=== PATIENT | female | born 1980 | race Caucasian/White ===

== ENCOUNTER → 2018-07-30 09:31 | Outpatient (CLI) | payer BC, SELFPAY ==
[2018-07-30 09:44] LABS: Basophils # 0.1 K/mm3 (0-0.2); Basophils % 2.3 % (0.1-2.0); Eosinophils # 0.2 K/mm3 (0.0-0.4); Hematocrit 40.4 % (37.0-47.0); Hemoglobin 13.6 g/dL (12.2-16.2); Lymphocytes # 1.6 K/mm3 (0.7-4.5); Lymphocytes % 39.2 % (10-50); Mean Corpuscular HGB Conc 33.6 g/dL (31.8-35.4); Mean Corpuscular Hemoglobin 31.8 pg (27.0-31.2); Mean Corpuscular Volume 94.6 fl (81-99); Mean Platelet Volume 8.5 fl (7.4-10.4); Monocytes # 0.3 K/mm3 (0.1-1.0); Monocytes % 7.9 % (1.7-9.3); Neutrophils # 1.9 K/mm3 (1.8-7.8); Neutrophils % 46.6 % (37.0-80.0); Platelet Count 272 K/mm3 (142-424); Red Blood Count 4.27 M/mm3 (4.20-5.40); Red Cell Distribution Width 11.9 % (11.5-17.5)
[2018-07-30 09:57] LABS: Hemoglobin A1C 5.5 % (0.0-7.0)
[2018-07-30 12:13] LABS: Alanine Aminotransferase 24 U/L (12-78); Albumin Level 3.6 gm/dL (3.4-5.0); Albumin/Globulin Ratio 1.1 (1.1-1.8); Alkaline Phosphatase 68 U/L (46-116); Anion Gap 14.5 mEq/L (5-15); Aspartate Amino Transferase 16 U/L (15-37); Bilirubin,Total 0.9 mg/dL (0.2-1.0); Blood Urea Nitrogen 13 mg/dL (7-18); Calcium 9.3 mg/dL (8.5-10.1); Carbon Dioxide 28 mmol/L (21.0-32.0); Chloride 105 mmol/L (98-107); Creatinine,Serum 0.51 mg/dL (0.55-1.02); Estimated Glomerular Filt Rate 136 ml/min (>60); Free Thyroxine Index 3.1 ug/dL (5.93-13.13); GFR (African American) 164 ML/MIN (>60); Globulin 3.2 gm/dl (1.3-3.2); Glucose 81 mg/dL (74-106); Potassium 4.5 mmoL/L (3.5-5.1); Sodium 143 mmol/L (136-145); T4 (Thyroxine) 10.6 ug/dl (4.7-13.3); Thyroid Stimulating Hormone 1.76 uIU/ml (0.358-3.740); Total Protein,Serum 6.8 gm/dL (6.4-8.2); Triiodothryronine (T3) Uptake 29 % (31-39)
[2018-08-02 13:11] LABS: Vitamin B12 619 pg/mL (232-1245)
== END ==
PROVIDERS: Visit Provider Internal Medicine Adolescent Medicine
DX: R73.9 Hyperglycemia, unspecified (principal); R53.81 Other malaise
CPT/HCPCS: 36415; 80053; 82607; 83036; 83735; 84436; 84443; 84479; 85025

== ENCOUNTER 2021-05-29 08:59 | Emergency (ER) | payer BC, SELFPAY ==
[2021-05-29 09:25] VITALS: BP 122/65; PULSE 116; RESP 18; TEMP 37.3; O2SAT 98; BMI 22.6
--- NOTE | 2021-05-29 09:41 | HMH.EDUTC ---
[facility] Disposition Clinical Impression: Close exposure to COVID-19 virus Pharyngitis Qualifiers: Pharyngitis/tonsillitis etiology: other specified organisms Qualified Code(s): J02.8 - Acute pharyngitis due to other specified organisms Disposition: Home, Self-Care Condition on Discharge: Good Instructions: DI for Strep Throat, Strep Throat Additional Instructions: Drink plenty of fluids. Take tylenol or ibuprofen for pain or fever. Take the medications as directed. Follow up with your regular doctor. GO TO THE ER FOR ANY WORSENING SYMPTOMS Quarantine until you know the results of your covid-19 test. Notify your school or workplace of your results and follow their instructions regarding return to work/school. Prescriptions: Brompheniramine/Pseudoephed/Dm [Bromfed Dm Cough Syrup] 5 ml PO Q6HP PRN #240 ml PRN Reason: Cough Transmission Status: Pending to [facility] Amoxicillin [Amoxicillin 500mg Tab] 500 mg PO TID 10 Days #30 tab Transmission Status: Pending to [facility] predniSONE [Deltasone 10mg tablet] 10 mg PO BID 3 Days #6 tab Transmission Status: Pending to [facility] Referrals: Lester Plaza MD [Primary Care Provider] - Forms: Work/School Release Time of Disposition: 10:02 Medical Decision Making - Medical Records Medical records reviewed: No: I reviewed the patient's medical records. - Garrick Inquiry Pt receiving controlled substance: No Vital Signs: 05/29/21 09:25 Temperature 99.1 F Temperature Source Oral Pulse Rate [Left] 116 H Respiratory Rate 18 Blood Pressure [Right Arm] 122/65 Blood Pressure Mean [Right Arm] 84 02 Sat by Pulse Oximetry 98 - Lab Data Lab results reviewed: Yes: I reviewed the patient's lab results. Lab Results 05/29/21 09:20: Group A Strep Rapid Negative Orders (Tests/Meds): ORDERS Category Date Time Status Strep Screen Confirmation Stat Micro 05/29/21 09:20 Received [facility] HPI - General Stated complaint: sore throat,fever Time Seen by Provider: 05/29/21 09:41 Mode of Arrival: Ambulatory Source of Information: Patient Limitations: No Limitations Description of Symptoms (Recalled from Triage Doc. by RN): pt c/o a sore throat since this am. HEENT Symptoms (Recalled from RN notes): Yes (sore throat) Resp Symptoms (Recalled from RN notes): No Skin Symptoms (Recalled from RN notes): No MS Symptoms (Recalled from RN notes): No Functional Status (Recalled from RN notes): wnl - History of Present Illness Provider Complaint: She states that she has been having sore throat for the past 2 days. She gets strep at times and she feels like she has strep throat. She has been fully vaccinated against covid-19. - Related Data Previous Rx's Medication Instructions Recorded norgestimate 0.25 mg-ethinyl 1 tab PO ONCE #84 tab 10/04/20 estradiol 35 mcg tablet Amoxicillin [Amoxicillin 500mg Tab] 500 mg PO TID 10 Days #30 tab 05/29/21 Brompheniramine/Pseudoephed/Dm 5 ml PO Q6HP PRN #240 ml 05/29/21 [Bromfed Dm Cough Syrup] predniSONE [Deltasone 10mg tablet] 10 mg PO BID 3 Days #6 tab 05/29/21 Allergies Allergy/AdvReac Type Severity Reaction Status Date / Time No Known Allergies Allergy Verified 10/04/20 09:04 - Worker's Comp Is this a Worker's Comp case?: No [facility] History - Hepatitis A Screen Drug use history?: No High risk sexual behaviors?: No History of sexually transmitted infection?: No Currently employed?: No Childcare worker?: No Do you have indoor plumbing?: Yes Do you have electricity?: Yes Attestation statement:: This patient has been screened for Hepatitis A risk factors. I have reviewed the patient's past medical history: Yes Medical History: Reports:: Urinary Tract Infection Denies:: Anxiety, Asthma, Depression, Migraine, MRSA, Seizures Other Surgeries: Yes: No Previous Surgery Amputation: No Fractures: No - Social History Smoking Status: Never smoker Alcoh
[2021-05-29 09:46] LABS: Strep Scrn Group A (Rapid) Negative (Negative)
[2021-05-29 10:10] VITALS: BP 122/65; PULSE 116; RESP 18; TEMP 37.3
== END 2021-05-29 10:10 | disposition home or self-care (01) ==
PROVIDERS: Emergency Provider Nurse Practitioner Family; PCP Internal Medicine Adolescent Medicine
DX: U07.1 COVID-19 (principal); J02.8 Acute pharyngitis due to other specified organisms
CPT/HCPCS: 87430; 99203; C9803; G0463; U0003; U0005

== ENCOUNTER → 2021-10-14 15:47 | Outpatient (CLI) | payer BC, SELFPAY ==
--- NOTE | 2021-10-14 15:48 | MM_ITS ---
PROCEDURE INFORMATION: Exam: Bilateral Screening 3D Mammography Exam date and time: 10/14/2021 3:48 PM Age: 41 years old Clinical indication: Screening mammogram. TECHNIQUE: Imaging protocol: Bilateral Screening tomosynthesis and 2D mammography including computer-aided detection (CAD) when performed. COMPARISON: No relevant prior studies available. FINDINGS: MAMMOGRAPHY: Breast composition: The breast is heterogeneously dense, which may obscure small masses. Mass: None. Architectural distortion: No new or suspicious architectural distortion. Calcifications: No new or suspicious calcifications are present Asymmetric density: No new or suspicious asymmetric density is present Skin thickening: None. Axillary adenopathy: None. IMPRESSION: No mammographic evidence of malignancy. Recommend annual screening mammography unless otherwise clinically indicated. ASSESSMENT: BI-RADS category 1: Negative
== END ==
PROVIDERS: PCP Internal Medicine Adolescent Medicine; Visit Provider Obstetrics & Gynecology
DX: Z12.31 Encounter for screening mammogram for malignant neoplasm of breast (principal)
CPT/HCPCS: 77063; 77067

== ENCOUNTER 2023-11-22 13:15 | Outpatient (CLI) | payer BC, SELFPAY ==
--- NOTE | 2023-11-22 13:15 | MM_ITS ---
PROCEDURE INFORMATION: Exam: MG Bilateral Screening 3D Mammography Exam date and time: 11/22/2023 1:54 PM Age: 43 years old Clinical indication: Screening. No family history of breast cancer. TECHNIQUE: Imaging protocol: Bilateral Screening tomosynthesis and 2D mammography including computer-aided detection (CAD) when performed. COMPARISON: MG MM DIG SCREENING MAMM BI W/CAD 10/14/2021 3:48 PM FINDINGS: MAMMOGRAPHY: Breast composition: The breasts are heterogeneously dense, which may obscure small masses. Mass: None. Architectural distortion: None. Calcifications: No suspicious calcifications. Asymmetric density: None. Skin thickening: None. Axillary adenopathy: None. IMPRESSION: No mammographic evidence of malignancy. Annual screening is recommended unless otherwise clinically indicated. ASSESSMENT: BI-RADS Category 1: Negative
--- NOTE | 2023-11-22 13:15 | US_ITS ---
PROCEDURE: US TRANSVAGINAL CLINICAL INDICATION: Pelvic Pain, pain in ovaries, AUB COMPARISON: No exams were available for comparison FINDINGS: Transvaginal sonographic images of the pelvis were obtained. UTERUS: 10.2cm x 11.1cmx 7.0cm anteverted with a combined endometrial thickness of 7.5mm. There are least 3 fibroids within the uterus. There is a large posterior fibroid measuring 8.5 cm x 9.6 cm x 10.4 cm. There is a 2nd fibroid measuring 5.5 cm x 4.4 cm x 4.5 cm A 3rd anterior fibroid measures 1.3 cm x 1.5 cm x 0.9 cm. LEFT OVARY: 1.4cmx1.5cmx2.5cm with a volume of 2.6ml. There is a follicle measuring 1.0 cm x 1.0 cm x 1.9 cm. RIGHT OVARY: 3.8 cmx 3.0cmx2.1cm with a volume of 12.3ml. There is a follicle in the right ovary measuring 2.6 cm x 2.4 cm x 2.3 cm. A 2nd follicle measures 2.9 cm x 1.9 cm x 3.0 cm Both ovaries are seen and appear normal. Doppler flow to both ovaries are seen. There is no fluid in the cul-de-sac. IMPRESSION: 1. Anteverted, enlarged uterus. The endometrium is normal measuring 7.5 mm. 2. There are 3 fibroids within the uterus. The largest measures 10.4 cm. A second fibroid measures 5.5 cm and the 3rd fibroid is 1.5 cm. 3. Both ovaries are seen and appear normal. 4. There are 2 follicles on the right ovary measuring 2.6 cm and 3.0 cm. 5. The left ovary has a single follicle measuring 1.9 cm. 6. There is no fluid in the cul-de-sac. Dictated by: Chester Bueno MD 11/22/2023 17:34 Chester Bueno MD in OV 11/22/2023 17:34
--- NOTE | 2023-11-22 13:23 | HMH.ITSTN ---
PATIENT ARRIVED 45 MIN EARLY FOR EXAM . FINISHED MY 1:00 PATIENT AT 1:22 AND EXPLAINDED TO HER THAT I HAD A 1:30 ON SCHEDULE BUT IF SHE DIDN'T SHOW UP , I COULD GET HER ON IN
== END 2023-11-22 23:59 | disposition home or self-care (01) ==
LOC: RAD 13:15
PROVIDERS: PCP Internal Medicine Adolescent Medicine; Visit Provider Obstetrics & Gynecology
DX: R10.2 Pelvic and perineal pain (principal); N93.9 Abnormal uterine and vaginal bleeding, unspecified; Z12.31 Encounter for screening mammogram for malignant neoplasm of breast
CPT/HCPCS: 76830; 77063; 77067

== ENCOUNTER 2024-02-16 15:51 | Outpatient (CLI) | payer BC, SELFPAY ==
--- NOTE | 2024-02-16 15:51 | US_ITS ---
PROCEDURE: US TRANSVAGINAL CLINICAL INDICATION: pelvic pain COMPARISON: US US TRANSVAGINAL from 11/22/2023 FINDINGS: Transvaginal sonographic images of the pelvis were obtained. UTERUS: 12.4cm x 10.9 cmx 9.5 cm Antivert with a combined endometrial thickness of 8.4mm. There is a small amount of fluid within the endometrium. Fibroid 1. 9.2 cm x 10.3 cm x 10.0 cm Fibroid 2. 3.9 cm x 4.8 cm x 3.9 cm Fibroid 3. 1.4 cm x 1.2 cm x 1.5 cm LEFT OVARY: xx with a volume of . RIGHT OVARY: 3.6 cmx 2.1cmx1.9 cm with a volume of 7.5ml. There is a follicle measuring 2.6 cm x 2.0 cm x 2.5 cm. Right ovary is seen and appears normal. Left ovary is not visualized. Doppler flow to right ovary is seen. There is no fluid in the cul-de-sac. IMPRESSION: 1. Anteverted enlarged uterus. It is enlarged with at least 3 separate fibroids. There is a large posterior fibroid that measures 10.3 cm. It has a similar appearance from her ultrasound done November 22, 2023. There are 2 other fibroids measuring 4.8 cm and 1.5 cm. 2. The endometrium appears normal and there is a small amount of fluid within the endometrium. 3. The left ovary is not visualized today. The right ovary appears normal in contains a follicle measuring 2.6 cm. 4. No fluid in the cul-de-sac. Dictated by: Cehster Bueno MD 02/16/2024 16:52 Chester Bueno MD in OV 02/16/2024 16:52
== END 2024-02-16 23:59 | disposition home or self-care (01) ==
PROVIDERS: PCP Internal Medicine Adolescent Medicine; Visit Provider Obstetrics & Gynecology
DX: R10.2 Pelvic and perineal pain (principal)
CPT/HCPCS: 76830

== ENCOUNTER 2024-04-01 07:58 | Outpatient (CLI) | payer BC, SELFPAY ==
[2024-04-01 08:29] LABS: Basophils # 0.2 K/mm3 (0-0.2); Basophils % 2.7 % (0.1-2.0); Eosinophils # 0.3 K/mm3 (0.0-0.4); Eosinophils % 5.2 % (0.1-12.0); Hematocrit 46.1 % (37.0-47.0); Hemoglobin 15.2 g/dL (12.2-16.2); Lymphocytes # 1.7 K/mm3 (0.7-4.5); Lymphocytes % 28.7 % (10-50); Mean Corpuscular Hemoglobin 31.3 pg (27.0-31.2); Mean Platelet Volume 8.1 fl (7.4-10.4); Monocytes # 0.4 K/mm3 (0.1-1.0); Monocytes % 6.8 % (1.7-9.3); Neutrophils # 3.3 K/mm3 (1.8-7.8); Neutrophils % 56.6 % (37.0-80.0); Platelet Count 367 K/mm3 (142-424); Red Blood Count 4.85 M/mm3 (4.20-5.40); Red Cell Distribution Width 12.5 % (11.5-17.5); White Blood Count 5.9 K/mm3 (4.8-10.8)
[2024-04-01 08:35] LABS: Alanine Aminotransferase 19 U/L (12-78); Albumin Level 4.2 g/dl (3.5-5.0); Albumin/Globulin Ratio 1.7 (1.1-1.8); Alkaline Phosphatase 116 U/L (38-126); Anion Gap 10.4 mEq/L (5-15); Aspartate Amino Transferase 27 U/L (14-36); Bilirubin,Total 0.7 mg/dl (0.2-1.3); Blood Urea Nitrogen 13 mg/dl (7-17); Calcium 9.3 mg/dl (8.4-10.2); Carbon Dioxide 26 mmol/L (22.0-30.0); Chloride 109 mmol/L (98-107); Estimated Glomerular Filt Rate 135 ml/min (>60); GFR (African American) 163 ML/MIN (>60); Globulin 2.5 g/dL (1.3-3.2); Glucose 86 mg/dl (74-100); Potassium 4.4 mmoL/L (3.5-5.1); Sodium 141 mmol/L (136-145); Total Protein,Serum 6.7 g/dl (6.3-8.2)
[2024-04-01 09:04] LABS: HCG,Quantitative < 2 mIU/ml (0-5.42)
== END 2024-04-01 23:59 | disposition home or self-care (01) ==
PROVIDERS: PCP Internal Medicine Adolescent Medicine; Visit Provider Obstetrics & Gynecology
DX: D25.9 Leiomyoma of uterus, unspecified (principal); Z34.90 Encounter for supervision of normal pregnancy, unspecified, unspecified trimester
CPT/HCPCS: 36415; 80053; 84702; 85025; 86850

== ENCOUNTER 2024-04-04 10:37 | Inpatient (IN) | payer BC, SELFPAY ==
[2024-04-04] VITALS (20 sets, daily range): BP systolic 98–137; BP diastolic 59–91; PULSE 75–102; RESP 14–18; TEMP 35.9–43; O2SAT 94–100; BMI 25.0
[2024-04-04] MEDS: ACETAMINOPHEN 500MG TAB 1000 MG PO ×3 (09:48→19:58)
[2024-04-04] MEDS: LACTATED RINGERS 1000ML 1,000 ML 25 ML IV (09:48)
[2024-04-04] MEDS: CELECOXIB 100MG CAPSULE 400 MG PO (09:49)
[2024-04-04] MEDS: GABAPENTIN 600MG TABLET 600 MG PO (09:50)
--- NOTE | 2024-04-04 10:10 | EXP.ANES.CKL ---
[facility] Disclaimer: The information contained in this section may have been updated after the patient was seen, as this information can be updated by other users. Medical History History of COVID-19 Abnormal uterine bleeding (AUB) Surgical History No history of previous surgery Family History Other Cancer Social History Smoking Status: Never smoker alcohol intake: never substance use type: denies use current occupational status: employed household members: family housing: house [facility] Anesthesia Checklist Patient Identification Patient Identification: Arm Band Structural Data Admitted From: Home Planned Operative Procedure/s: Total Abdominal Hysterectomy, Bilateral Salpingectomy Consent for Planned Operative Procedure(s) Verified: Yes Verified Documents: Surgical Consent and History and Physical NPO Status Verified Time NPO: 00:00 Additional verifications Anesthesia Reactions: No Hx Blood Transfusions: No Blood Transfusion Reaction: No Airway Assessment Mallampati Score:: Class I C-Spine Mobility Assessed: Yes TMJ Mobility Assessed: Yes Dentition: Good Dentition Neurological Assessment Level of Consciousness: Awake, Alert and Appropriate Anesthesia Plan Anesthesia Risk discussed: Yes Anesthesia Plan: Verified ASA Class: I Anesthesia Type: General w/block (with Bilateral TAP Block)
[2024-04-04] MEDS: METRONIDAZ/SOD CHL 500 MG/100 ML PIGGYBACK 100 MG IV (10:36)
[2024-04-04] MEDS: CEFAZOLIN SODIUM 2 GM in 0.9 % SODIUM CHLORIDE 100 ML IV (10:36)
--- NOTE | 2024-04-04 12:50 | EXP.ANES.I ---
[facility] Anesthesia Record Part I Anesthesia Record I Intake, IV Amount: 1,400 Hydration: Adequate Estimated blood loss (mL): 200 Urine output (mL): 100 Blood Products used (#): none Blood Pressure: 129/91 SaO2: 99 Pulse Rate: 86 Airway Patency: Patent Respiratory Rate: 16 Temperature: 97.5 F Patient is:: Drowsy and Stable Stable to PACU at:: 12:40
[2024-04-04 14:10] LABS: Microscopic,Cath URINE MICROSCOPIC (MICROSCOPIC)
--- NOTE | 2024-04-04 14:31 | P.HP_ITS ---
History of Present Illness *Admission Date: 04/04/24 *Reason for visit:: Hysterectomy *History of present illness: Prerna Schofield is a 44yo presenting today for total abdominal hysterectomy, bilateral salpingectomy, and cystoscopy. -Reports she continues to have abnormal intermenstrual bleeding. She previously adjusted her control but continues to have this irregular heavy menses. She is also complaining of continued crampy and heavy menstrual cycles. Endorses significant dysmenorrhea. She also has abdominal pelvic pain. Endorses pelvic pressure. -Review of transvaginal ultrasound shows interval growth for uterine fibroids -Medical history review: Only medication is Sprintec. She has had 1 vaginal delivery and it was uncomplicated. No known drug allergies. She denies any other surgical history. 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 Denies tobacco, alcohol, illicit drug use [facility] Disclaimer: The information contained in this section may have been updated after the patient was seen, as this information can be updated by other users. Medical History History of COVID-19 Abnormal uterine bleeding (AUB) Surgical History No history of previous surgery Family History Other Cancer Social History (Updated 04/04/24 @ 14:04 by Bill Van RN) Smoking Status: Never smoker alcohol intake: never substance use type: denies use current occupational status: employed Travel in the last 8 weeks: None household members: family housing: house Other Medical History Have you received the Flu Vaccine for this season: No Have you received the Pneumonia Vaccine: No Review of Systems Review of Systems Review of systems (narrative): Const: Denies headaches, fever/chills, weakness Eyes: Denies change in vision Cardiorespiratory: Denies chest pain, shortness of breath, and cough GI: Denies abdominal pain, change in BM, nausea, vomiting, constipation, diarrhea : +AUB, dysmenorrhea, pelvic pain, abdominal pain, menorrhagia, pelvic pressure; denies genital lesions, vaginal itching and odor; denies leakage of urine, urinary urgency, frequency, dysuria and hematuria Denies depression and anxiety Denies change in libido Meds Home Medications and Allergies Home Medications ?Medication ?Instructions ?Recorded ?Confirmed ?Type norgestimate 0.25 mg-ethinyl 1 tab PO DAILY 04/04/24 04/04/24 History estradiol 35 mcg tablet (Sprintec (28)) New Prescriptions to Start Prescriptions: Allergies Allergy/AdvReac Type Severity Reaction Status Date / Time No Known Allergies Allergy Verified 03/31/24 13:55 Exam Data for Last 24 hours Vital signs and Labs for Last 24 Hours: Temp Pulse Resp BP Pulse Ox O2 Del Method 97.2 F L 75 14 117/70 99 Room Air 04/04/24 13:20 04/04/24 13:45 04/04/24 13:45 04/04/24 13:45 04/04/24 13:45 04/04/24 13:45 I & O for Last 24 hours: Intake & Output 04/01/24 04/02/24 04/03/24 04/04/24 23:59 23:59 23:59 23:59 Intake Total 1400 / 1400 Balance 1400 / 1400 Weight 160 lb Narrative: Const: healthy appearing, NAD, well developed/nourished HEENT: No oral lesions Resp: Normal respiratory effort, no audible wheezing, symmetirc chest rise Cardio: Regular rate GI: Abdomen soft, non-tender, non-distended. no guarding. Fundus palpable at the umbilicus Skin: No rash or visible lesion Neuro:No focal deficits Extrem: No visible deformity Psych: Normal mood and demeanor Constitutional Constitutional: no acute distress *Routine HEENT Exam Head: Present normocephalic Eye: Present EOMI and PERRL ENT: Present mucous membranes moist *Routine Neck Exam Neck: Present supple; Absent lymphadenopathy *Routine Respiratory Exam Respiratory: Present CTA bilaterally *Routine Cardiovascular Exam Cardiovascular: Present RRR *Routine Abdominal Exam Abdominal: Present soft and normoactive bowel sounds; Absent tenderness *Routine Rectal Exam Rectal:: deferred *Routine Genitalia Exam Genitalia:: deferred *Routine Extremities Exam Extremities: Absent cyanosis, clubbing or edema *Routine Skin Exam Skin: Present warm; Absent rash *Routine Neurological Exam Neurological: Present alert and oriented X3 Assessment and Plan *Assessment and plan (1) Pelvic pain: Status: Acute Category: Medical Code(s): R10.2 - Pelvic and perineal pain (2) Dysmenorrhea: Status: Acute Category: Medical Code(s): N94.6 - Dysmenorrhea, unspecified (3) Fibroid uterus: Status: Acute Category: Medical Code(s): D25.9 - Leiomyoma of uterus, unspecified (4) Pelvic fullness in female: Status: Acute Category: Medical Code(s): R19.00 - Intra-abdominal and pelvic swelling, mass and lump, unspecified site (5) Abnormal uterine bleeding (AUB): Status: Acute Category: Medical Code(s): N93.9 - Abnormal uterine and vaginal bleeding, unspecified Plan Plan for total abdominal hysterectomy, salpingectomy, cystoscopy -TVUS, most recent on 02/16/2024: Uterus: 12.4 x 10.9 x 9.5 cm. The endometrium measures 8.4 mm. -Fibroid #1: 9.2 x 10.3 x 10.0 cm -Fibroid #2: 3.9 x 4.8 x 3.9 cm -Thyroid #3: 1.4 x 1.2 x 1.5 cm Ovaries: Left ovary difficult to visualize. Right ovary within normal limits -The patient is requesting definitive surgical management with hysterectomy. She declines medical intervention. Reviewed the risks of major gynecologic surgery with the pt to include bleeding, infection and risk of damage to surrounding structures. She thoroughly understands the risk of hysterectomy. Teach back method used and patient was able to repeat all discussed risk from last visit. Discussed risks of bleeding and pt consented to blood transfusion if deemed medically necessary. Discussed risks of infection, states she has no allergies to antibiotics and we will use ancef and metronidazole for infection ppx. Discussed risks of injury to the surrounding structures to include her bowel, bladder, ureters, and neurovascular bundles. Discussed that this could require further surgeries and prolong recovery and hospital stay. Discussed this could also mean transfer to a tertiary care center if certain complications occurred. Discussed risk of DVT, anesthesia complications, and . Discussed risk of fistula formation. Discussed that she would stay overnight to ensure adequate pain control and that she met all postop milestones and pt agreed. She voiced understanding of all risks. -Pap smear collected on 11/18/2023: NILM, transformation zone present, positive HPV. -CBC, test, type and screen ordered. -Infection prophylactic antibiotics ordered: Ancef 2g and 500 mg of metronidazole -Will follow ERAS pain management protocol -Postoperative course reviewed with the patient and explained that she should an ticipate staying in the hospital 1-2 days until meeting all DC criteria, and pain is well controlled. Follow-up: -Postoperatively -PRN as problems arise
--- NOTE | 2024-04-04 14:34 | EXP.OP.NOTE ---
Date of procedure: 04/04/24 Pre-op Diagnosis:: 1. Enlarged leiomyomatous uterus 2. Abnormal uterine bleeding 3. Heavy uterine bleeding 4. Dysmenorrhea 5. Pelvic pain and pressure Post-op Diagnosis:: 1. Enlarged leiomyomatous uterus 2. Abnormal uterine bleeding 3. Heavy uterine bleeding 4. Dysmenorrhea 5. Pelvic pain and pressure Procedure performed:: Total abdominal hysterectomy with bilateral Salpingectomy Cystoscopy Surgeon:: Josie Arauz DO Toppiece Chopper(s):: Chester Bueno MD PAINTER TUMBLING BARREL:: Jorge Alamo and Other (Willem Schofield) Anesthesia: GETA Estimated blood loss (mL): 200 Operative findings:: - EUA revealed normal appearing vulva and vagina, a enlarged uterus approximately 20+ weeks in size with irregular contours suggestive of fibroids. - Operative findings demonstrated a fibroid uterus with multiple subserosal and intramural fibroids as well as there were some filmy adnexal adhesions bilaterally. The appendix was normal appearing. The bowel and omentum were normal appearing. Peritoneal surfaces and vesicouterine peritoneum and cul-de-sac were all free of any evidence of endometriosis or adhesions. - Cystoscopy revealed bilateral flow from the ureters without any evidence of bladder injury. Operative note:: After informed consent was obtained and all questions were answered to the patient?s satisfaction in layman?s terms. She was taken to the Operating Room where general anesthesia was obtained without any difficulty. Pt was placed in dorsal supine position. EUA revealed findings above and the decision was made to proceed with MARVEL. The vagina and abdomen were prepped and draped in normal sterile fashion. A midline vertical incision was made from the pubic bone to the umbilicus with a scalpel. This was carried to the fascia with the Bovie and blunt dissection. The fascia was incised in the midline and extended superiorly and inferiorly with Gann scissors. The rectus muscles were taken off the fascial plane carefully. The midline was identified and the peritoneum was easily accessed, and transected. Entry to the abdominal cavity was noted. The patient was placed in a slight Trendelenburg and the uterus was noted to be occupying the entire space filling the pelvis below the umbilicus. The uterus was removed from the abdominal incision and the bowel was packed cephalad with 4 lap sponges. O'Chadd-O'Alas retractor was placed. At this time it was noted there was a small filmy adhesion which was broken down upon entry from the left ovary. There is a small amount of bleeding that was made hemostatic with the Enseal laparoscopic coagulation device. Hemostasis noted. The uterus was very grossly enlarged with several fibroids noted. 2 Jacquie clamps were used to grasp the fallopian tube and round ligament complex at the cornua of the uterus. The Enseal was used to clamp and coagulate the round ligament as well as the utero-ovarian ligament. Enseal was used to exteriorly down the broad ligament. The broad ligament was into its anterior and posterior leaflets working the way towards the cardinal ligament. The vesicouterine peritoneum was identified, transected, and dissected. The posterior leaflet of the broad ligament was taken down to the cardinal ligaments and the uterine artery was skeletonized. A clamp was placed on the artery and it was coagulated and transected. This process was repeated on the contralateral side. The vesicouterine peritoneum was made in the middle. While skeletonizing the left uterine artery it was transected but bleeding was able to be controlled quickly with a hemostatic clip and suture ligation of the artery. The bladder was easily dissected off the cervicovaginal fascia. Straight clamps proximal to the uterus were placed across the uterine vessels and cardinal ligaments were cut and suture ligated bilaterally with 0-vicryl. Then the bladder was sharply and bluntly dissected off the underlying cervix with a moist Ray-Zaida sponge distal to the level of the cervix. Two sharply curved Oliver clamps were placed just distal to the cervix and Gann scissors were used to transect the remainder of the uterine body and cervix. Specimen passed off and sent to pathology. The Enseal was used to complete the salpingectomy bilaterally. Fallopian tubes were passed off the operative field to be sent to pathology for further evaluation. Bilateral vaginal apices were suture-ligated. The cuff was closed with 0 Vicryl in a running locked fashion. Ovaries and adnexa were reevaluated and noted to be hemostatic. The vaginal cuff was hemostatic. There is a small amount of oozing on the vesicouterine peritoneum/the bladder serosa wall. This was made hemostatic with pressure. Copious irrigation of the pelvis was used and it was suctioned dry. Noted to be hemostatic. Surgicel powder was placed over the cuff, bladder peritoneum, and pedicles for prophylaxis. The sigmoid colon was replaced back into the hollow of the sacrum. All instruments and laps were returned from the abdominal cavity. The O'Chadd-O'Alas was removed. Lap count was correct. The omentum was pulled over the bowel. The peritoneum was reapproximated with 2-0 Monocryl. The rectus muscles were noted to be hemostatic and nicely returned to midline. The fascia was then closed in a running fashion with 0-PDS x 2. No gaps or defects were appreciated. The subcutaneous tissue was irrigated. Any bleeders were made hemostatic with the bovie. The subcutaneous tissue was reapproximated in 2 layers with 0 Monocryl and 2-0 Monocryl. The skin was closed in a subcuticular fashion with 3-0 monocryl. The patient was frog-legged and a cystoscopy was completed. Johnson catheter was removed. Urology cystoscope was placed and the bladder was distended with normal saline. Inspection showed bilateral flow from the ureteral meatus. There was no evidence of injury, suture, deficits or other bladder abnormalities. Cystoscope was removed The patient tolerated the procedure well. The sponge, lap, and needle counts were correct, per nursing. At the end of the case the specimen was weighed and noted to be greater than 2 pounds. Josie Arauz DO Obstetrics and Gynecology. Condition: stable Disposition: floor Specimens:: Uterine body, cervix, bilateral fallopian tubes Complications:: none
[2024-04-04] MEDS: LACTATED RINGERS 1000ML 1,000 ML 125 ML IV (14:44)
[2024-04-04 15:16] LABS: Appearance,Urine/Cath CLEAR (Clear); Bilirubin,Cath Negative (Negative); Blood, Urine/Cath Negative (Negative); Color,Urine/Cath YELLOW (Yellow); Glucose,Urine/Cath (UA) Negative (Negative); Ketones,Urine/Cath Negative (Negative); Leukocyte Esterase,Cath Negative (Negative); Nitrate,Cath Negative (Negative); Protein,Urine/Cath Negative (Negative); Urobilinogen,Cath 0.2 EU/dl (0.2)
[2024-04-04 15:34] LABS: Bacteria,Urine/Cath OCCASSIONAL /lpf; Mucus,Urine/Cath 1+ /lpf; WBC,Urine/Cath Occasional #/hpf (0-3)
[2024-04-04] MEDS: KETOROLAC 30MG/ML VIAL 30 MG IV (18:48)
--- NOTE | 2024-04-04 20:30 | PC.NURSE ---
Pt ambulated to bathroom at this time with standby assist, pt denies dizziness. pt was able to void without difficulty. Pt ambulated back to bed without difficulty, denies needs at this time
--- NOTE | 2024-04-04 22:17 | PC.NURSE ---
Patient stated she wanted to try to get up and walk. This RN assisted patient out of bed and started to ambulated to the door, Pt stated she was getting dizzy, Pt was seated in chair by door, cool rag applied to pts neck, pt stated she would sit in the chair for a bit then get back in bed. RN educated on not getting up without assistance, Pt V/U. Patient denies needs
[2024-04-04] MEDS: SIMETHICONE 80MG CHEWABLE TABLET 160 MG PO (23:37)
[2024-04-05] VITALS: BP 101/53; PULSE 97; RESP 16; TEMP 37.1; O2SAT 97
[2024-04-05] MEDS: KETOROLAC 30MG/ML VIAL 30 MG IV ×2 (00:44→06:43)
[2024-04-05] MEDS: SENNOSIDES 8.6MG/DOCUSATE 50MG TABLET 1 TAB PO (00:45)
[2024-04-05] MEDS: ACETAMINOPHEN 500MG TAB 1000 MG PO ×2 (03:08→08:41)
[2024-04-05 03:41] VITALS: BP 93/49; PULSE 94; RESP 16; TEMP 37.2; O2SAT 95
--- NOTE | 2024-04-05 04:26 | PC.NURSE ---
Pt resting in bed upon reassessment, pt stated she had passed some gas and her pain has decreased. pt rates pain 2/10. Pt has rested throughout shift, pt ambulates to bathroom with standby assist and back to bed, educated pt on ambulating on next shift to help gas move more, pt V/U. pt has voided without any difficulty, lung sounds clear throughout, bowel sounds hyperactive in all quadrants on reassessment, incision site clean and dry, dermabond still intact, slight redness and swelling noted. pt denies incisional pain, states she thinks it is just gas pain . pt denies needs at this time.
[2024-04-05 06:21] LABS: Basophils % 0.5 % (0.1-2.0); Eosinophils % 0.3 % (0.1-12.0); Hematocrit 31.9 % (37.0-47.0); Hemoglobin 10.8 g/dL (12.2-16.2); Lymphocytes # 1.4 K/mm3 (0.7-4.5); Lymphocytes % 20.1 % (10-50); Mean Corpuscular HGB Conc 33.8 g/dL (31.8-35.4); Mean Corpuscular Hemoglobin 31.6 pg (27.0-31.2); Mean Corpuscular Volume 93.4 fl (81-99); Mean Platelet Volume 8.3 fl (7.4-10.4); Monocytes # 0.9 K/mm3 (0.1-1.0); Monocytes % 12.8 % (1.7-9.3); Neutrophils # 4.7 K/mm3 (1.8-7.8); Neutrophils % 66.2 % (37.0-80.0); Platelet Count 312 K/mm3 (142-424); Red Blood Count 3.41 M/mm3 (4.20-5.40); Red Cell Distribution Width 12.6 % (11.5-17.5); White Blood Count 7.2 K/mm3 (4.8-10.8)
[2024-04-05 06:27] LABS: Anion Gap 7.6 mEq/L (5-15); Blood Urea Nitrogen 6 mg/dl (7-17); Calcium 8.2 mg/dl (8.4-10.2); Carbon Dioxide 25 mmol/L (22.0-30.0); Chloride 107 mmol/L (98-107); Creatinine Clearance Estimated 166 mL/min (50-200); Estimated Glomerular Filt Rate 135 ml/min (>60); GFR (African American) 163 ML/MIN (>60); Glucose 112 mg/dl (74-100); Potassium 3.6 mmoL/L (3.5-5.1); Sodium 136 mmol/L (136-145)
--- NOTE | 2024-04-05 07:18 | P.PNANES_ITS ---
[facility] Anesthesia Record Part II Anesthesia Record Part II Discharge Time: 13:10 Destination: Surgical Day Care (OP Surgery) PACU nurse assessment reviewed?: Yes Patient Condition:: Good Anesthesia Complications:: None Swallowing reflex intact?: Yes Airway Patency: Patent Cyanosis?: No Blood Pressure: 134/85 SaO2: 99 Respiratory Rate: 18 Pulse Rate: 88 Temperature: 97.4 F Mental Status: Alert & Oriented Pain level:: 3 Nausea and/or vomitting:: None Intake, IV Amount: 0 Hydration: Adequate
[2024-04-05 07:20] VITALS: BP 134/85; PULSE 88; RESP 18; TEMP 36.3; O2SAT 99
[2024-04-05 08:00] VITALS: BP 115/66; PULSE 98; RESP 16; TEMP 36.8; O2SAT 97
[2024-04-05] MEDS: SIMETHICONE 80MG CHEWABLE TABLET 160 MG PO (08:43)
--- NOTE | 2024-04-05 09:25 | P.DS_ITS ---
General Admission date:: 04/04/24 Discharge date: 04/05/24 HPI HPI HPI: Prerna Schofield is a 44yo presenting today for total abdominal hysterectomy, bilateral salpingectomy, and cystoscopy. -Reports she continues to have abnormal intermenstrual bleeding. She previously adjusted her control but continues to have this irregular heavy menses. She is also complaining of continued crampy and heavy menstrual cycles. Endorses significant dysmenorrhea. She also has abdominal pelvic pain. Endorses pelvic pressure. -Review of transvaginal ultrasound shows interval growth for uterine fibroids -Medical history review: Only medication is Sprintec. She has had 1 vaginal delivery and it was uncomplicated. No known drug allergies. She denies any other surgical history. 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 Denies tobacco, alcohol, illicit drug use Hospital Course Hospital Course Hospital Course: Ms. Prerna Schofield is a 44-year-old postop day #1 from a total abdominal hysterectomy, bilateral salpingectomy, and cystoscopy. There were no complications with her procedure. She is doing well. She is ambulating, voiding, and tolerating p.o. without difficulty or dysuria. Reports that she has no nausea. Her bowels are active. Reports her pain is very well- controlled. She desires discharge home today. Routine discharge instructions reviewed the patient in detail and she was understanding. All questions and concerns were addressed to her satisfaction Exam Data for Last 24 hours Vital signs and Labs for Last 24 Hours: Temp Pulse Resp BP Pulse Ox O2 Del Method 98.2 F 98 H 16 115/66 97 Room Air 04/05/24 08:00 04/05/24 08:00 04/05/24 08:00 04/05/24 08:00 04/05/24 08:00 04/05/24 08:00 Laboratory Results - last 24 hr 04/04/24 10:45: Urine Color Yellow, Urine Appearance Clear, Urine pH 8.0, Ur Specific [place] 1.020, Urine Protein Negative, Urine Glucose (UA) Negative, Urine Ketones Negative, Urine Blood Negative, Urine Nitrate Negative, Urine Bilirubin Negative, Urine Urobilinogen 0.2, Ur Leukocyte Esterase Negative, Uri ne RBC 3-5, Urine WBC Occasional, Ur Squamous Epith Cells 3-5, Urine Bacteria Occassional 04/05/24 06:01: WBC 7.2, RBC 3.41 L, Hgb 10.8 L, Hct 31.9 L, MCV 93.4, MCH 31.6 H, MCHC 33.8, RDW 12.6, Plt Count 312, MPV 8.3, Neut % (Auto) 66.2, Lymph % (Auto) 20.1, Bibb % (Auto) 12.8 H, Eos % (Auto) 0.3, Baso % (Auto) 0.5, Neut # (Auto) 4.7, Lymph # (Auto) 1.4, Bibb # (Auto) 0.9, Eos # (Auto) 0.0, Baso # (Auto) 0.0, Sodium 136, Potassium 3.6, Chloride 107, Carbon Dioxide 25, Anion Gap 7.6, BUN 6 L, Creatinine 0.50 L, Estimated Creat Clear 166, Estimated GFR 135, Est GFR ( Amer) 163, Glucose 112 H, Calcium 8.2 L I & O for Last 24 hours: Intake & Output 04/02/24 04/03/24 04/04/24 04/05/24 23:59 23:59 23:59 23:59 Intake Total 1400 / 1400 0 / 0 Output Total 300 / 300 400 / 400 Balance 1100 / 1100 -400 / -400 Weight 160 lb Constitutional Constitutional: no acute distress *Routine HEENT Exam Head: Present normocephalic Eye: Present EOMI and PERRL ENT: Present mucous membranes moist *Routine Neck Exam Neck: Present supple; Absent lymphadenopathy *Routine Respiratory Exam Respiratory: Present CTA bilaterally *Routine Cardiovascular Exam Cardiovascular: Present RRR *Routine Abdominal Exam Abdominal: Present soft and normoactive bowel sounds; Absent tenderness *Routine Extremities Exam Extremities: Absent cyanosis, clubbing or edema *Routine Skin Exam Skin: Present warm; Absent rash Comments: Well healing midline vertical incision. No redness, drainage, warmth, or signs of infection *Routine Neurological Exam Neurological: Present alert and oriented X3 Results Data Completed and Pending Labs on day of discharge: Labs from last 24 hours 04/05/24 04/04/24 06:01 10:45 WBC 7.2 RBC 3.41 L Hgb 10.8 L Hct 31.9 L MCV 93.4 MCH 31.6 H MCHC 33.8 RDW 12.6 Plt Count 312 MPV 8.3 Neut % (Auto) 66.2 Lymph % (Auto) 20.1 Bibb % (Auto) 12.8 H Eos % (Auto) 0.3 Baso % (Auto) 0.5 Neut # (Auto) 4.7 Lymph # (Auto) 1.4 Bibb # (Auto) 0.9 Eos # (Auto) 0.0 Baso # (Auto) 0.0 Sodium 136 Potassium 3.6 Chloride 107 Carbon Dioxide 25 Anion Gap 7.6 BUN 6 L Creatinine 0.50 L Estimated Creat Clear 166 Estimated GFR 135 Est GFR ( Amer) 163 Glucose 112 H Calcium 8.2 L Urine Color Yellow Urine Appearance Clear Urine pH 8.0 Ur Specific [place] 1.020 Urine Protein Negative Urine Glucose (UA) Negative Urine Ketones Negative Urine Blood Negative Urine Nitrate Negative Urine Bilirubin Negative Urine Urobilinogen 0.2 Ur Leukocyte Esterase Negative Urine RBC 3-5 Urine WBC Occasional Ur Squamous Epith Cells 3-5 Urine Bacteria Occassional DS: Diagnosis Discharge Diagnosis (1) Pelvic pain: Status: Acute Code(s): R10.2 - Pelvic and perineal pain (2) Dysmenorrhea: Status: Acute Code(s): N94.6 - Dysmenorrhea, unspecified (3) Fibroid uterus: Status: Acute Code(s): D25.9 - Leiomyoma of uterus, unspecified (4) Pelvic fullness in female: Status: Acute Code(s): R19.00 - Intra-abdominal and pelvic swelling, mass and lump, unspecified site (5) Abnormal uterine bleeding (AUB): Status: Acute Code(s): N93.9 - Abnormal uterine and vaginal bleeding, unspecified (6) S/P MARVEL (total abdominal hysterectomy): Status: Acute Code(s): Z90.710 - Acquired absence of both cervix and uterus Meds Home Medications and Allergies Home Medications ?Medication ?Instructions ?Recorded ?Confirmed ?Type acetaminophen 500 mg tablet 500 mg PO Q6H PRN fever or pain 04/05/24 Rx #30 tabs ibuprofen 800 mg tablet 800 mg PO Q8H PRN pain #60 tabs 04/05/24 Rx oxycodone 5 mg tablet 5 mg PO Q8H PRN pain #15 tabs 04/05/24 Rx sennosides 8.6 mg tablet (Senna 8.6 mg PO BIDP PRN Constipation 04/05/24 Rx Lax) #60 tabs simethicone 125 mg tablet 125 mg PO DAILY PRN abdominal 04/05/24 Rx distention #60 tabs New Prescriptions to Start Prescriptions: acetaminophen Josie Arauz ibuprofen Josie Arauz oxycodone Josie Arauz sennosides [Senna Lax] Josie Arauz simethicone Josie Arauz Allergies Allergy/AdvReac Type Severity Reaction Status Date / Time No Known Allergies Allergy Verified 03/31/24 13:55 Discharge Plan Disposition Patient Disposition: Home, Self-Care Condition: Good Discharge Order Discharge Orders: Discharge Order (Routine); Ordered 04/05/24 Ordered By: Josie Arauz Follow up Plan Follow up with: Josie Arauz DO [Staff Physician] - 04/19/24 2:15 pm Prescriptions/Medication Reconciliation: New acetaminophen 500 mg tablet 500 mg PO Q6H PRN (Reason: fever or pain) Qty: 30 3RF sennosides [Senna Lax] 8.6 mg Tablet 8.6 mg PO BIDP PRN (Reason: Constipation) Qty: 60 2RF ibuprofen 800 mg tablet 800 mg PO Q8H PRN (Reason: pain) Qty: 60 2RF oxycodone 5 mg tablet 5 mg PO Q8H PRN (Reason: pain) Qty: 15 0RF simethicone 125 mg tablet 125 mg PO DAILY PRN (Reason: abdominal distention) Qty: 60 2RF Discontinued norgestimate-ethinyl estradiol [Sprintec (28)] 0.25-35 mg-mcg tablet 1 tab PO DAILY Rx Instructions: TAKE 1 TABLET BY MOUTH ONCE DAILY FOR CONTRACEPTION Problem Reconciliation Problems Reviewed?: Yes Patient Discharge Instructions ACTIVITY: Continue current activity, Ambulate as tolerated and No heavy lifting DIET: regular diet Additional Instructions: Hysterectomy Discharge You had a total abdominal hysterectomy, bilateral salpingectomy and cystoscopy. This means I removed your uterus, cervix, and both fallopian tubes. By removing your fallopian tubes it decreases your lifetime risk of ovarian cancer. I also used a camera to look in your bladder after the surgery and there were no problems with your bladder wall or ureters. There were no complications with your surgery. I removed several large fibroids during your surgery. Your uterus weighed greater than 2-1/2 pounds. It was sent to pathology for further evaluation. I have called several medications in for you and they are detailed below as well as discharge instructions. If you have any questions, please call the office. You will follow-up in office for a postop visit at 2 and 6 weeks. At your 6- week postop appointment you will have a pelvic exam to ensure your cuff is healing well. During the time leading up to your follow-up please remember to keep your incision clean and dry. This means taking a shower daily and letting warm soapy water run over the incisions. You do not need to scrub the surgical glue off it is meant to be a water tight, antibacterial barrier. There were no complications with your procedure. Activity: - No lifting more than 10 lbs for 6 weeks. - No driving while you are taking narcotic pain medication. Wound care - You have surgical glue covering your incision. This will come off on its own within 1-2 weeks - You have stitches under your skin which will dissolve over the next 4-6 weeks as your body heals - Keep your wound clean and dry, ok to wash with soap and water but pat thoroughly dry Medications: - Ibuprofen (a nonsteroidal anti-inflammatory) for pain. Please take the ibuprofen scheduled for the first 2-3 days as this will help control your pain - Oxycodone (a narcotic pain medication) use the narcotic pain medication for breakthrough or severe pain. You will want to stop the narcotic pain medication first. Narcotic pain medication can be habit forming so please only use this medication if you need it. - Senna (a stool softener) use this medication for constipation as needed. Narcotics can increase your risk for constipation - Simethicone: a gas medication for bloating and gas pain you may experience in the next 1-2 weeks. Please call the office or return to the ER if you have any of the followin. bleeding more than 1 pad an hour for 2 hours 2. pain that does not respond to your narcotic pain medication 3. dizziness or lightheadedness such that you lose consciousness 4. abnormal discharge that looks like pus from your incisions Questions or concerns: It is my privilege to be your doctor. Please let me know if you have other questions or concerns. Josie Arauz DO [facility] [place], [place] [address] Stand Alone Forms: [facility] Work Release Patient Instructions: Hysterectomy -- Open Surgery, Surgical Site Infection Print Language: Vietnamese Providers Primary Care Provider: Lester Plaza Admit Provider: Josie Arauz Attending Provider: Josie Arauz
== END 2024-04-05 11:07 | disposition home or self-care (01) | DRG 743 ==
LOC: OB 10:38
PROVIDERS: Admitting Provider Obstetrics & Gynecology; PCP Internal Medicine Adolescent Medicine; Visit Provider Obstetrics & Gynecology
PROC: 0UT90ZZ Resection of Uterus, Open Approach (ICD-10-PCS; CPT 58150; principal; 2024-04-04 10:45)
DX: D25.1 Intramural leiomyoma of uterus (principal); D25.2 Subserosal leiomyoma of uterus; N94.6 Dysmenorrhea, unspecified; R10.2 Pelvic and perineal pain
CPT/HCPCS: 36415; 80048; 81001; 85025; J3490; C9290; J0690; J1100; J1171; J1885; J2250; J2405; J3010; J7120

== ENCOUNTER 2024-04-19 15:03 | Outpatient (CLI) | payer BC, SELFPAY ==
[2024-04-19 15:34] LABS: Albumin Level 3.9 g/dl (3.5-5.0); Chloride 100 mmol/L (98-107); Potassium 3.5 mmoL/L (3.5-5.1); Sodium 130 mmol/L (136-145)
[2024-04-19 15:37] LABS: Alanine Aminotransferase 29 U/L (12-78); Albumin/Globulin Ratio 1.1 (1.1-1.8); Alkaline Phosphatase 126 U/L (38-126); Anion Gap 4.5 mEq/L (5-15); Aspartate Amino Transferase 31 U/L (14-36); Bilirubin,Total 0.6 mg/dl (0.2-1.3); Blood Urea Nitrogen 8 mg/dl (7-17); Carbon Dioxide 29 mmol/L (22.0-30.0); Estimated Glomerular Filt Rate 135 ml/min (>60); GFR (African American) 163 ML/MIN (>60); Globulin 3.4 g/dL (1.3-3.2); Total Protein,Serum 7.3 g/dl (6.3-8.2)
[2024-04-19 15:38] LABS: Calcium 9.2 mg/dl (8.4-10.2); Glucose 116 mg/dl (74-100); Magnesium 1.8 mg/dl (1.6-2.3)
[2024-04-19 16:06] LABS: Basophils # 0.2 K/mm3 (0-0.2); Basophils % 0.9 % (0.1-2.0); Eosinophils # 0.2 K/mm3 (0.0-0.4); Eosinophils % 1.4 % (0.1-12.0); Hematocrit 37.3 % (37.0-47.0); Hemoglobin 12.2 g/dL (12.2-16.2); Lymphocytes # 1.4 K/mm3 (0.7-4.5); Lymphocytes % 8.3 % (10-50); Mean Corpuscular HGB Conc 32.9 g/dL (31.8-35.4); Mean Corpuscular Hemoglobin 30.3 pg (27.0-31.2); Mean Corpuscular Volume 92.3 fl (81-99); Mean Platelet Volume 7.9 fl (7.4-10.4); Neutrophils # 13.8 K/mm3 (1.8-7.8); Neutrophils % 83.4 % (37.0-80.0); Platelet Count 950 K/mm3 (142-424); Red Blood Count 4.04 M/mm3 (4.20-5.40); Red Cell Distribution Width 12.6 % (11.5-17.5); White Blood Count 16.5 K/mm3 (4.8-10.8)
[2024-04-19 16:09] LABS: MANUAL DIFFERENTIAL MANUAL DIFFERENTIAL (MANUAL DIFF)
[2024-04-19 16:39] LABS: Lymphocytes % 7 % (10-50); Monocytes % 5 % (2-9); Neutrophils % 86 % (42-76); Total Cells Counted 100
[2024-04-19 16:41] LABS: Platelet Estimate Marked Increase
[2024-04-19 16:42] LABS: Anisocytosis 2+; Hypochromasia 1+; Macrocytosis 2+; Microcytosis 1+
== END 2024-04-19 23:59 | disposition home or self-care (01) ==
LOC: LAB 15:56
PROVIDERS: PCP Internal Medicine Adolescent Medicine; Visit Provider Obstetrics & Gynecology
DX: Z90.710 Acquired absence of both cervix and uterus (principal); R10.2 Pelvic and perineal pain
CPT/HCPCS: 36415; 80053; 83735; 85007; 85025; 85027; 87086; 87088; 87186

== ENCOUNTER 2024-04-19 16:51 | Inpatient (IN) | payer BC, SELFPAY ==
[2024-04-19 16:52] VITALS: BP 105/71; PULSE 113; RESP 18; TEMP 37.3; O2SAT 99; BMI 23.6
--- NOTE | 2024-04-19 17:07 | HMH.EDGENADL ---
Discharge Plan Disposition Patient Disposition: Admitted Condition: Fair Clinical Impressions Clinical Impression: Abdominal abscess Discharge ED Provider: Navdeep Larios General Adult HPI General Chief complaint: Recheck/Abnormal Lab/Rx Stated complaint: sent by [facility] lab recheck Time Seen by Provider: 04/19/24 17:07 Mode of Arrival: Ambulatory Source of Information: Patient Limitations: No Limitations Description of Symptoms (Recalled from ER Triage Doc. by RN): c/o plt count triple and wbc up today after labwork by , pt reports that she had a hysterectomy 2 weeks ago and this was fu labs. Denies any symptoms at this time. History of Present Illness HPI narrative: Patient presents from [facility] due to concerns of nausea and leukocytosis following hysterectomy. She denies any abdominal pain at this time. She reports normal bowel movements. No fevers or chills at home. No sick contacts no dysuria or urinary frequency. No chest pain or palpitations. Please note that above description of symptoms, in this electronic medical record under categorization of recalled from ER triage doctor by RN are reflective of an initial nursing assessment, however, is not reflective of my full history and physical exam that was personally taken and clarified. Consequentially, this preceding description of symptoms, which may include the patient's categorized chief complaint in the EMR, do not reflect my personal clinical impression, and the ultimate description of history of present illness and patient stated complaints should be deferred to this section of the note. Unless stated otherwise or congruent with this section of the note, additional signs, symptoms, or incongruence should be interpreted as inaccurate with my clinical impression. Related Data Home Medications ?Medication ?Instructions ?Recorded ?Confirmed ibuprofen 800 mg tablet 800 mg PO Q8HP PRN Pain (Scale 04/20/24 04/20/24 Score 4-6) norgestimate 0.25 mg-ethinyl 1 tab PO DAILY 04/20/24 04/20/24 estradiol 35 mcg tablet (Sprintec (28)) ondansetron 4 mg disintegrating 4 mg PO Q8HP PRN Nausea And 04/20/24 04/20/24 tablet Vomiting promethazine 12.5 mg tablet 12.5 mg PO Q4HP PRN nausea and 04/20/24 04/20/24 vomiting simethicone 125 mg tablet 125 mg PO DAILYP PRN FLATULENCE 04/20/24 04/20/24 Previous Rx's ?Medication ?Instructions ?Recorded sennosides 8.6 mg tablet (Senna 8.6 mg PO BIDP PRN Constipation 04/05/24 Lax) #60 tabs Allergies Allergy/AdvReac Type Severity Reaction Status Date / Time No Known Allergies Allergy Verified 04/19/24 14:17 [facility] Disclaimer: The information contained in this section may have been updated after the patient was seen, as this information can be updated by other users. Medical History (Updated 04/20/24 @ 15:54 by Tim Hidalgo II, MD) History of COVID-19 Abnormal uterine bleeding (AUB) Surgical History (Updated 04/19/24 @ 14:27 by BRENNEN Leung) History of total abdominal hysterectomy Family History Other Cancer Social History Smoking Status: Never smoker alcohol intake: never substance use type: denies use current occupational status: employed Travel in the last 8 weeks: None household members: family housing: house Other Medical History Have you received the Flu Vaccine for this season: No Have you received the Pneumonia Vaccine: No ROS Obtained: Yes other As per HPI Physical Exam General General appearance: alert and in no apparent distress Head Head exam: atraumatic and normocephalic Eye Eye exam: Present normal appearance Neck Neck exam: Present normal inspection Chest Chest inspection: Present normal inspection and symmetric chest wall rise Respiratory Respiratory exam: Present normal lung sounds bilaterally; Absent respiratory distress Cardiovascular Cardiovascular exam: Present regular rate and normal rhythm Abdominal Exam Abdominal exam: Present soft Neurological Exam Neurological exam: Present alert and oriented X3 Psychiatric Psychiatric exam: Present normal affect and normal mood Skin Skin exam: Present warm and dry Medical Decision Making Medical Records Medical records reviewed: Yes I reviewed the patient's medical records. Screening: Per USPSTF and CDC recommendations, given the prevalence of disease in our region, it is our hospital?s policy to screen for HIV and viral Hepatitis for all patients aged 18 and over and those with ongoing risk factors. Garrick Inquiry Pt receiving controlled substance: No Vital Signs: 04/19/24 16:52 04/19/24 21:40 Temperature 99.2 F 97.9 F Temperature Source Oral Oral Pulse Rate 103 H Pulse Rate [Left Radial] 113 H Respiratory Rate 18 18 Blood Pressure 120/70 Blood Pressure [Right Arm] 105/71 L Blood Pressure Mean [Right Arm] 82 Blood Pressure Position Supine 02 Sat by Pulse Oximetry 99 Oxygen Delivery Method Room Air Room Air Lab Data Lab Results 04/19/24 17:05: WBC 17.9 H, RBC 3.96 L, Hgb 12.1 L, Hct 36.6 L, MCV 92.4, MCH 30.7, MCHC 33.2, RDW 12.8, Plt Count 917 H*, MPV 7.5, Neut % (Auto) 87.2 H, Lymph % (Auto) 6.7 L, [place] % (Auto) 4.0, Eos % (Auto) 1.2, Baso % (Auto) 0.8, Neut # (Auto) 15.6 H, Lymph # (Auto) 1.2, [place] # (Auto) 0.7, Eos # (Auto) 0.2, Baso # (Auto) 0.1, Sodium 131 L, Potassium 3.6, Chloride 100, Carbon Dioxide 28, Anion Gap 6.6, BUN 8, Creatinine 0.50 L, Estimated Creat Clear 157, Estimated GFR 135, Est GFR ( Amer) 163, Glucose 114 H, Calcium 9.3, Total Bilirubin 0.6, AST 30, ALT 27, Alkaline Phosphatase 128 H, Total Protein 7.4, Albumin 4.0, Globulin 3.4 H, Albumin/Globulin Ratio 1.2, Lipase 35, Hepatitis C Antibody Non reactive, HIV 1&2 Antibody Rapid Nonreactive 04/20/24 06:20 04/20/24 06:20 Orders (Tests/Meds): ED MEDICATIONS Generic Name Dose Route Start Last Admin Trade Name Freq PRN Reason Stop Dose Admin Acetaminophen 1,000 mg 04/19/24 21:54 Acetaminophen 500mg Tab PO 05/19/24 21:53 Q6HP PRN Fever or Mild-Mod Pain (1-6) Lactated Ringer's 1,000 mls @ 75 mls/hr 04/19/24 22:00 04/20/24 00:00 Lactated Ringer's 1000 Ml Bag IV 05/19/24 21:59 75 mls/hr .[id number] PERLITA Administration Piperacillin Sod/Tazobactam 50 mls @ 100 mls/hr 04/20/24 05:00 04/20/24 13:18 Sod 3.375 gm/ Sodium Chloride IV 04/30/24 04:59 100 mls/hr Q6H PERLITA Administration Ibuprofen 800 mg 04/20/24 07:57 Ibuprofen 400 Mg Tablet PO 05/20/24 07:56 Q8HP PRN Mild to Moderate Pain (1-6) Ondansetron HCl 4 mg 04/20/24 03:03 Ondansetron 4mg Odt SL 05/20/24 03:02 Q6HP PRN Nausea Oxycodone HCl 5 mg 04/20/24 07:57 Oxycodone 5mg Immediate Release Tablet PO 05/20/24 07:56 Q4HP PRN Moderate to Severe Pain (4-10) Promethazine HCl 12.5 mg 04/20/24 04:37 04/20/24 04:42 Promethazine Hcl 25mg/Ml 1ml Vial IV 05/20/24 04:36 12.5 mg Q6HP PRN Administration Nausea And Vomiting Sodium Chloride 10 ml 04/20/24 08:43 04/20/24 13:19 Sodium Chloride 0.9% 10ml Flush Syringe IV 05/20/24 08:42 10 ml NEEDED PRN Administration Maintain IV Site Sodium Chloride 10 ml 04/20/24 13:06 Sodium Chloride 0.9% 10ml Syr (Rad Only) IV 05/20/24 13:05 NEEDED PRN Maintain IV Site Discontinued Medications Generic Name Dose Route Start Last Admin Trade Name Freq PRN Reason Stop Dose Admin Gadoteridol 13 ml 04/20/24 13:11 04/20/24 13:16 Gadoteridol Inj 20ml Syringe IV 04/20/24 13:12 13 ml ONCE ONE Administration Lactated Ringer's 1,000 mls @ 999 mls/hr 04/19/24 18:02 04/19/24 18:08 Lactated Ringer's 1000 Ml Bag IV 04/19/24 19:02 999 mls/hr .Q1H1M ONE Administration Piperacillin Sod/Tazobactam 100 mls @ 200 mls/hr 04/19/24 21:14 04/19/24 21:49 Sod 4.5 gm/ Sodium Chloride IV 04/19/24 21:43 200 mls/hr ONCE ONE Administration Magnesium Sulfate 2 gm in 50 mls @ 50 mls/hr 04/20/24 08:45 04/20/24 09:34 Magnesium Sulfate 2gm/50ml Premix IV 04/20/24 09:44 50 mls/hr ONCE ONE Administration Iopamidol 75 ml 04/19/24 17:30 04/19/24 17:31 Iopamidol-370 (76%);100ml Bottle IV 04/19/24 17:31 75 ml ONCE ONE Administration Miscellaneous 1 each 04/19/24 22:00 Pha To Nursing Instruction NOTAPPLIC 04/19/24 22:01 ONCE ONE Miscellaneous 1 each 04/20/24 02:45 04/20/24 02:54 Pha To Nursing Instruction NOTAPPLIC 04/20/24 02:46 1 each ONCE ONE Administration Ondansetron HCl 4 mg 04/19/24 17:49 04/19/24 17:52 Ondansetron 4mg Odt SL 04/19/24 17:50 4 mg ONCE ONE Administration Potassium Chloride 60 meq 04/20/24 08:45 04/20/24 09:35 Potassium Chloride 20meq Tab PO 04/20/24 08:46 60 meq ONCE ONE Administration Sodium Chloride 10 ml 04/19/24 17:30 04/19/24 17:31 Sodium Chloride 0.9% 10ml Syr (Rad Only) IV 04/19/24 17:31 10 ml ONCE ONE Administration Sodium Chloride 25 ml 04/20/24 13:11 04/20/24 13:16 Sodium Chloride 0.9% 50ml Bag IV 04/20/24 13:12 25 ml ONCE ONE Administration ORDERS Category Date Time Status CT abdomen pelvis w con Stat Cat Scan 04/19/24 17:18 Completed CMP [Comprehensive Metabolic Panel] Stat Lab 04/19/24 17:05 Completed Complete Blood Count Auto Diff Stat Lab 04/19/24 17:05 Completed Complete Blood Count Auto Diff Timed Lab 04/20/24 06:20 Completed Comprehensive Metabolic Panel Timed Lab 04/20/24 06:20 Completed HIV (1&2) Antibody Rapid Stat Lab 04/19/24 17:05 Completed Hep C Ab with Reflex to RNA Stat Lab 04/19/24 17:05 Completed Lipase Stat Lab 04/19/24 17:05 Completed Blood Culture Stat Micro 04/19/24 21:29 Received Medical Decision Narrative: Patient with history and exam per above presenting for evaluation of postoperative nausea and leukocytosis Diagnoses considered include hemoconcentration, intra-abdominal infection, UTI, among others ED workup and treatment included: ED MEDICATIONS Generic Name Dose Route Start Last Admin Trade Name Freq PRN Reason Stop Dose Admin Acetaminophen 1,000 mg 04/19/24 21:54 Acetaminophen 500mg Tab PO 05/19/24 21:53 Q6HP PRN Fever or Mild-Mod Pain (1-6) Lactated Ringer's 1,000 mls @ 75 mls/hr 04/19/24 22:00 04/20/24 00:00 Lactated Ringer's 1000 Ml Bag IV 05/19/24 21:59 75 mls/hr .[id number] PERLITA Administration Piperacillin Sod/Tazobactam 50 mls @ 100 mls/hr 04/20/24 05:00 04/20/24 13:18 Sod 3.375 gm/ Sodium Chloride IV 04/30/24 04:59 100 mls/hr Q6H PERLITA Administration Ibuprofen 800 mg 04/20/24 07:57 Ibuprofen 400 Mg Tablet PO 05/20/24 07:56 Q8HP PRN Mild to Moderate Pain (1-6) Ondansetron HCl 4 mg 04/20/24 03:03 Ondansetron 4mg Odt SL 05/20/24 03:02 Q6HP PRN Nausea Oxycodone HCl 5 mg 04/20/24 07:57 Oxycodone 5mg Immediate Release Tablet PO 05/20/24 07:56 Q4HP PRN Moderate to Severe Pain (4-10) Promethazine HCl 12.5 mg 04/20/24 04:37 04/20/24 04:42 Promethazine Hcl 25mg/Ml 1ml Vial IV 05/20/24 04:36 12.5 mg Q6HP PRN Administration Nausea And Vomiting Sodium Chloride 10 ml 04/20/24 08:43 04/20/24 13:19 Sodium Chloride 0.9% 10ml Flush Syringe IV 05/20/24 08:42 10 ml NEEDED PRN Administration Maintain IV Site Sodium Chloride 10 ml 04/20/24 13:06 Sodium Chloride 0.9% 10ml Syr (Rad Only) IV 05/20/24 13:05 NEEDED PRN Maintain IV Site Discontinued Medications Generic Name Dose Route Start Last Admin Trade Name Freq PRN Reason Stop Dose Admin Gadoteridol 13 ml 04/20/24 13:11 04/20/24 13:16 Gadoteridol Inj 20ml Syringe IV 04/20/24 13:12 13 ml ONCE ONE Administration Lactated Ringer's 1,000 mls @ 999 mls/hr 04/19/24 18:02 04/19/24 18:08 Lactated Ringer's 1000 Ml Bag IV 04/19/24 19:02 999 mls/hr .Q1H1M ONE Administration Piperacillin Sod/Tazobactam 100 mls @ 200 mls/hr 04/19/24 21:14 04/19/24 21:49 Sod 4.5 gm/ Sodium Chloride IV 04/19/24 21:43 200 mls/hr ONCE ONE Administration Magnesium Sulfate 2 gm in 50 mls @ 50 mls/hr 04/20/24 08:45 04/20/24 09:34 Magnesium Sulfate 2gm/50ml Premix IV 04/20/24 09:44 50 mls/hr ONCE ONE Administration Iopamidol 75 ml 04/19/24 17:30 04/19/24 17:31 Iopamidol-370 (76%);100ml Bottle IV 04/19/24 17:31 75 ml ONCE ONE Administration Miscellaneous 1 each 04/19/24 22:00 Pha To Nursing Instruction NOTAPPLIC 04/19/24 22:01 ONCE ONE Miscellaneous 1 each 04/20/24 02:45 04/20/24 02:54 Pha To Nursing Instruction NOTAPPLIC 04/20/24 02:46 1 each ONCE ONE Administration Ondansetron HCl 4 mg 04/19/24 17:49 04/19/24 17:52 Ondansetron 4mg Odt SL 04/19/24 17:50 4 mg ONCE ONE Administration Potassium Chloride 60 meq 04/20/24 08:45 04/20/24 09:35 Potassium Chloride 20meq Tab PO 04/20/24 08:46 60 meq ONCE ONE Administration Sodium Chloride 10 ml 04/19/24 17:30 04/19/24 17:31 Sodium Chloride 0.9% 10ml Syr (Rad Only) IV 04/19/24 17:31 10 ml ONCE ONE Administration Sodium Chloride 25 ml 04/20/24 13:11 04/20/24 13:16 Sodium Chloride 0.9% 50ml Bag IV 04/20/24 13:12 25 ml ONCE ONE Administration ORDERS Category Date Time Status CT abdomen pelvis w con Stat Cat Scan 04/19/24 17:18 Completed CMP [Comprehensive Metabolic Panel] Stat Lab 04/19/24 17:05 Completed Complete Blood Count Auto Diff Stat Lab 04/19/24 17:05 Completed Complete Blood Count Auto Diff Timed Lab 04/20/24 06:20 Completed Comprehensive Metabolic Panel Timed Lab 04/20/24 06:20 Completed HIV (1&2) Antibody Rapid Stat Lab 04/19/24 17:05 Completed Hep C Ab with Reflex to RNA Stat Lab 04/19/24 17:05 Completed Lipase Stat Lab 04/19/24 17:05 Completed Blood Culture Stat Micro 04/19/24 21:29 Received Labs were independently interpreted by me, significant for leukocytosis Imaging was independently visualized and interpreted by me, significant for intra-abdominal abscess Please refer to radiology report for full details. Patient will benefit from mission for further management on inpatient basis she was accepted for admission to [facility] Critical Care Critical Care Time Critical Care Time: No
--- NOTE | 2024-04-19 17:18 | CT_ITS ---
PROCEDURE INFORMATION: Exam: CT Abdomen And Pelvis With Contrast Exam date and time: 04/19/2024 5:31 PM Age: 44 years old Clinical indication: Nausea and vomiting; Additional info: Post-hysterectomy nausea/vomiting TECHNIQUE: Imaging protocol: Computed tomography of the abdomen and pelvis with contrast. Radiation optimization: All CT scans at this facility use at least one of these dose optimization techniques: automated exposure control; mA and/or kV adjustment per patient size (includes targeted exams where dose is matched to clinical indication); or iterative reconstruction. Contrast material: ISOVUE; Contrast volume: 75 ml; Contrast route: IV; COMPARISON: US TRANSVAGINAL 02/16/2024 3:46 PM FINDINGS: Lungs: Lung bases are clear. Liver: A 8.6 cm near isodense enhancing mass arising from the posterior left lobe of the liver with central hypodense components suggesting central scar noted centered on axial image 37 and coronal image 22. Numerous additional indeterminate low-density lesions are noted scattered throughout the liver the largest measuring 3.5 cm in the inferior right lobe of liver on axial image 65 and the next largest lesion measuring 2.1 cm in the right lobe of liver on image 51. Gallbladder and biliary ducts: Normal. No calcified stones. No ductal dilation. Pancreas: Normal. No ductal dilation. Spleen: Normal. No splenomegaly. Adrenal glands: Normal. No mass. Kidneys and ureters: Two small nonobstructing left kidney stones largest measuring 4 mm. Kidneys and ureters otherwise unremarkable with no obstructing stones or uropathy. Stomach and bowel: Scattered fluid distended but nondilated small bowel loops noted in the abdomen and pelvis. GI tract structures otherwise unremarkable with no evident wall thickening allowing for incomplete distention. Appendix: No evidence of appendicitis. Intraperitoneal space: Unremarkable. No free air. No significant fluid collection. Vasculature: Unremarkable. No abdominal aortic aneurysm. Lymph nodes: Unremarkable. No enlarged lymph nodes. Urinary bladder: Unremarkable as visualized. Reproductive: Postsurgical changes compatible with hysterectomy. A large multiloculated appearing mixed air-fluid collection compatible with abscess noted in the pelvis measuring 11.3 x 8.1 x 7.9 cm centered on axial image 90 and coronal image 31. A separate developing abscess noted posteriorly to the left of the rectum measuring 3.9 x 1.5 x 2.1 cm centered on axial image 96 and sagittal image 62. Bones/joints: Unremarkable. No acute fracture. Soft tissues: Unremarkable. IMPRESSION: 1. Hysterectomy. 2. Large pelvic abscess measuring 11.3 cm. Additional smaller left perirectal potential developing abscess measuring 3.9 cm. 3. Fluid distended small bowel loops might reflect ileus related to the pelvic abscesses. 4. Incidental 8.6 cm enhancing mass in the left lobe of the liver with central low-density component. 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 5. Numerous indeterminate low-density lesions noted scattered throughout the liver of uncertain etiology. Benign versus malignant etiologies cannot be differentiated. Advise further assessment with nonemergent MRI of the liver with and without contrast.
[2024-04-19 17:28] LABS: Basophils # 0.1 K/mm3 (0-0.2); Basophils % 0.8 % (0.1-2.0); Eosinophils # 0.2 K/mm3 (0.0-0.4); Eosinophils % 1.2 % (0.1-12.0); Hematocrit 36.6 % (37.0-47.0); Hemoglobin 12.1 g/dL (12.2-16.2); Lymphocytes # 1.2 K/mm3 (0.7-4.5); Lymphocytes % 6.7 % (10-50); Mean Corpuscular HGB Conc 33.2 g/dL (31.8-35.4); Mean Corpuscular Hemoglobin 30.7 pg (27.0-31.2); Mean Corpuscular Volume 92.4 fl (81-99); Mean Platelet Volume 7.5 fl (7.4-10.4); Monocytes # 0.7 K/mm3 (0.1-1.0); Neutrophils # 15.6 K/mm3 (1.8-7.8); Neutrophils % 87.2 % (37.0-80.0); Platelet Count 917 K/mm3 (142-424); Red Blood Count 3.96 M/mm3 (4.20-5.40); Red Cell Distribution Width 12.8 % (11.5-17.5); White Blood Count 17.9 K/mm3 (4.8-10.8)
[2024-04-19] MEDS: SODIUM CHLORIDE 0.9% 10ML SYR (RAD ONLY) 10 ML IV (17:31)
[2024-04-19] MEDS: IOPAMIDOL-370 (76%);100ML BOTTLE 75 ML IV (17:31)
[2024-04-19 17:39] LABS: Chloride 100 mmol/L (98-107)
[2024-04-19 17:40] LABS: Potassium 3.6 mmoL/L (3.5-5.1); Sodium 131 mmol/L (136-145)
[2024-04-19 17:41] LABS: Lipase 35 U/L (23-300)
[2024-04-19 17:43] LABS: Alanine Aminotransferase 27 U/L (12-78); Albumin/Globulin Ratio 1.2 (1.1-1.8); Alkaline Phosphatase 128 U/L (38-126); Anion Gap 6.6 mEq/L (5-15); Aspartate Amino Transferase 30 U/L (14-36); Bilirubin,Total 0.6 mg/dl (0.2-1.3); Blood Urea Nitrogen 8 mg/dl (7-17); Calcium 9.3 mg/dl (8.4-10.2); Carbon Dioxide 28 mmol/L (22.0-30.0); Creatinine Clearance Estimated 157 mL/min (50-200); Estimated Glomerular Filt Rate 135 ml/min (>60); GFR (African American) 163 ML/MIN (>60); Globulin 3.4 g/dL (1.3-3.2); Glucose 114 mg/dl (74-100); Total Protein,Serum 7.4 g/dl (6.3-8.2)
[2024-04-19] MEDS: ONDANSETRON 4MG ODT 4 MG SL (17:52)
[2024-04-19] MEDS: LACTATED RINGERS 1000ML 1,000 ML 999 ML IV (18:08)
--- NOTE | 2024-04-19 18:17 | PC.NURSE ---
Dr. Amato on the phone with Dr. Arauz.
[2024-04-19 18:19] LABS: HIV (1&2) Antibody Rapid NONREACTIVE (NONREACTIVE)
--- NOTE | 2024-04-19 21:04 | PC.NURSE ---
on phone with at this time.
--- NOTE | 2024-04-19 21:13 | PC.NURSE ---
report received from Gilberto RODRIGUEZ
--- NOTE | 2024-04-19 21:13 | PC.NURSE ---
Report given to MICHAEL Wellington
--- NOTE | 2024-04-19 21:15 | PC.NURSE ---
on the phone with dr. Montoya at this time, orders received to continue maintenance fluids at 75ml/hr, tylenol 1000mg PO PRN Q6, motrin 800mg PO PRN Q8, oxy 5mg PO PRN Q4, CBC/CMP in AM, and continuous SCDs. orders read back and verified.
--- NOTE | 2024-04-19 21:30 | PC.NURSE ---
Patient arrived to room 279 via wheelchair accompanied by RN. Patient is alert and orients and independent with mobility. Patient voided upon arrival and was oriented to room and unit. Discussed plan of care and patient denies any questions at this time. Bedding provided for spouse and bedtime snack given at patient request. Patient reports room temp comfortable. Call light within reach
[2024-04-19 21:40] VITALS: BP 120/70; PULSE 103; RESP 18; TEMP 36.6; O2SAT 99
[2024-04-19] MEDS: PIPERACILLIN/TAZO 4.5 GM in 0.9 % SODIUM CHLORIDE 100 ML IV (21:49)
--- NOTE | 2024-04-19 22:30 | PC.NURSE ---
Patient ate half sandwich at some broth. Drinking water and tolerating meal without nausea or vomiting. No further needs at this time. and daughter at bedside
--- NOTE | 2024-04-19 23:15 | PC.NURSE ---
Patient sitting in bed, no needs voiced. Patient awake. Call light within reach
[2024-04-20] MEDS: LACTATED RINGERS 1000ML 1,000 ML 75 ML IV
--- NOTE | 2024-04-20 00:10 | PC.NURSE ---
patient up to bathroom, warm blanket requested and this nurse brought to patient. Water pitcher filled. Patient denies any needs at this time. Call light within reach
[2024-04-20] MEDS: PHA TO NURSING INSTRUCTION 1 EACH NOTAPPLIC (02:54)
--- NOTE | 2024-04-20 02:54 | PC.NURSE ---
Pt report nausea. No vomiting. Denies abdominal pain. zofran given per order. Ice chips offered. No other needs voiced by patient. Call benavidez within reach
--- NOTE | 2024-04-20 04:15 | PC.NURSE ---
Patient reassessed. Pt reporting increased nausea. Dr. Montoya called. New order recieved for Phenergan 12.5mg q 6 hrs PRN IV, also verified Zosyn order. Dr. Montoya gave TO for Zosyn 3.375G q 6hrs schedued IV. Read back and verified. Orders sent to pharmacy
[2024-04-20] MEDS: PIPERACILLIN/TAZO 3.375 GM in 0.9 % SODIUM CHLORIDE 50 ML IV ×3 (04:41→18:38)
[2024-04-20] MEDS: PROMETHAZINE HCL 25MG/ML 1ML VIAL 12.5 MG IV (04:42)
--- NOTE | 2024-04-20 05:32 | PC.NURSE ---
Patient sleeping comfortably. No distress noted. Resirations even and unlabored. Call light within reach
--- NOTE | 2024-04-20 06:03 | PC.NURSE ---
Pt awake with nausea returning. Patient given mint and cool washcloth. Patient reports mint helpful. Patient hasnt slept well and is visibly tired.
[2024-04-20 06:04] VITALS: BP 133/78; PULSE 98; RESP 16; TEMP 36.7; O2SAT 100
--- NOTE | 2024-04-20 06:19 | PC.NURSE ---
lab on unit with patient at this time
[2024-04-20 06:54] LABS: Albumin Level 3.2 g/dl (3.5-5.0); Chloride 104 mmol/L (98-107); Potassium 3.5 mmoL/L (3.5-5.1); Sodium 132 mmol/L (136-145)
[2024-04-20 06:57] LABS: Alanine Aminotransferase 21 U/L (12-78); Albumin/Globulin Ratio 1.1 (1.1-1.8); Alkaline Phosphatase 99 U/L (38-126); Anion Gap 3.5 mEq/L (5-15); Aspartate Amino Transferase 24 U/L (14-36); Bilirubin,Total 0.6 mg/dl (0.2-1.3); Blood Urea Nitrogen 6 mg/dl (7-17); Carbon Dioxide 28 mmol/L (22.0-30.0); Creatinine Clearance Estimated 157 mL/min (50-200); Estimated Glomerular Filt Rate 135 ml/min (>60); GFR (African American) 163 ML/MIN (>60); Globulin 2.9 g/dL (1.3-3.2); Total Protein,Serum 6.1 g/dl (6.3-8.2)
[2024-04-20 06:58] LABS: Calcium 8.5 mg/dl (8.4-10.2); Glucose 116 mg/dl (74-100)
--- NOTE | 2024-04-20 07:11 | PC.NURSE ---
report given to Aryan Julio RN
[2024-04-20 07:27] LABS: Basophils # 0.1 K/mm3 (0-0.2); Basophils % 0.8 % (0.1-2.0); Eosinophils # 0.2 K/mm3 (0.0-0.4); Eosinophils % 0.8 % (0.1-12.0); Lymphocytes # 1.2 K/mm3 (0.7-4.5); Lymphocytes % 6.7 % (10-50); Mean Corpuscular HGB Conc 32.6 g/dL (31.8-35.4); Mean Corpuscular Hemoglobin 30.3 pg (27.0-31.2); Mean Corpuscular Volume 93.1 fl (81-99); Mean Platelet Volume 7.4 fl (7.4-10.4); Monocytes # 1.1 K/mm3 (0.1-1.0); Monocytes % 6.1 % (1.7-9.3); Neutrophils # 14.8 K/mm3 (1.8-7.8); Neutrophils % 85.6 % (37.0-80.0); Platelet Count 801 K/mm3 (142-424); Red Blood Count 3.33 M/mm3 (4.20-5.40); Red Cell Distribution Width 12.8 % (11.5-17.5); White Blood Count 17.3 K/mm3 (4.8-10.8)
[2024-04-20 08:13] LABS: MANUAL DIFFERENTIAL MANUAL DIFFERENTIAL (MANUAL DIFF)
[2024-04-20 08:16] VITALS: BP 105/65; PULSE 96; RESP 16; TEMP 36.9; O2SAT 95
[2024-04-20 08:53] LABS: Hemoglobin 10.1 g/dL (12.2-16.2)
--- NOTE | 2024-04-20 09:03 | HMH.PHAINT1 ---
Pharmacy Intervention Comments: HOME MEDICATIONS VERIFIED VIA OUTPATIENT PHARMACY
--- NOTE | 2024-04-20 09:07 | P.HP_ITS ---
History of Present Illness *Admission Date: 04/19/24 *Reason for visit:: pelvic abscess *History of present illness: Prerna is a 44yo who presented to the office 2 weeks postop from a total abdominal hysterectomy and bilateral salpingectomy. She reported she was doing well. Denies fever, chills or any post op pain. She reported normal bowel movements. Denies significant vaginal bleeding. -Prerna called the office wednesday and said she had been nauseous all weekend and requested nausea medicine but stated she was fine to follow up on Wednesday. Today on exam she states she is still nauseous but she is not tender on bimanual exam. Pt reports prior tot she had felt fine. On Wednesday she thought she was feeling better and ate a [employer] hamburger and later that evening she vomited but only had stomach acid/ bile and no hamburger. She is drinking a lot of coke. Reports she has not taken any pain pills and has not had any pain. She has been eating, but endorses a decreased appetite for fear of emesis. She denies sick contacts and no one else in the home has been sick. She denies dysuria or problems with urination. [facility] Disclaimer: The information contained in this section may have been updated after the patient was seen, as this information can be updated by other users. Medical History (Updated 04/20/24 @ 12:27 by Josie Arauz DO) History of COVID-19 Abnormal uterine bleeding (AUB) Surgical History (Updated 04/19/24 @ 14:27 by BRENNEN Leung) History of total abdominal hysterectomy Family History Other Cancer Social History Smoking Status: Never smoker alcohol intake: never substance use type: denies use current occupational status: employed Travel in the last 8 weeks: None household members: family housing: house Other Medical History Have you received the Flu Vaccine for this season: No Have you received the Pneumonia Vaccine: No Review of Systems Review of Systems Review of systems (narrative): Const: Denies headaches, fever/chills. endorses fatigue Cardiorespiratory: Denies chest pain, shortness of breath, and cough GI: endorses some mild pelvic pain. Denies abdominal pain, change in BM. Endorses nausea, vomiting. Denies constipation, diarrhea.reports regular BMs : denies pelvic pain, vaginal itching and odor; denies urinary incontinence. Denies urinary urgency, frequency, dysuria Meds Home Medications and Allergies Home Medications ?Medication ?Instructions ?Recorded ?Confirmed ?Type sennosides 8.6 mg tablet (Senna 8.6 mg PO BIDP PRN Constipation 04/05/24 04/20/24 Rx Lax) #60 tabs ibuprofen 800 mg tablet 800 mg PO Q8HP PRN Pain (Scale 04/20/24 04/20/24 History Score 4-6) norgestimate 0.25 mg-ethinyl 1 tab PO DAILY 04/20/24 04/20/24 History estradiol 35 mcg tablet (Sprintec (28)) ondansetron 4 mg disintegrating 4 mg PO Q8HP PRN Nausea And 04/20/24 04/20/24 History tablet Vomiting promethazine 12.5 mg tablet 12.5 mg PO Q4HP PRN nausea and 04/20/24 04/20/24 History vomiting simethicone 125 mg tablet 125 mg PO DAILYP PRN FLATULENCE 04/20/24 04/20/24 History New Prescriptions to Start Prescriptions: Allergies Allergy/AdvReac Type Severity Reaction Status Date / Time No Known Allergies Allergy Verified 04/19/24 14:17 Exam Data for Last 24 hours Vital signs and Labs for Last 24 Hours: Temp Pulse Resp BP Pulse Ox O2 Del Method 98.5 F 96 H 16 105/65 L 95 Room Air 04/20/24 08:16 04/20/24 08:16 04/20/24 08:16 04/20/24 08:16 04/20/24 08:16 04/20/24 08:16 Laboratory Results - last 24 hr 04/19/24 17:05: WBC 17.9 H, RBC 3.96 L, Hgb 12.1 L, Hct 36.6 L, MCV 92.4, MCH 30.7, MCHC 33.2, RDW 12.8, Plt Count 917 H*, MPV 7.5, Neut % (Auto) 87.2 H, Lymph % (Auto) 6.7 L, Dickinson % (Auto) 4.0, Eos % (Auto) 1.2, Baso % (Auto) 0.8, Neut # (Auto) 15.6 H, Lymph # (Auto) 1.2, Dickinson # (Auto) 0.7, Eos # (Auto) 0.2, Baso # (Auto) 0.1, Sodium 131 L, Potassium 3.6, Chloride 100, Carbon Dioxide 28, Anion Gap 6.6, BUN 8, Creatinine 0.50 L, Estimated Creat Clear 157, Estimated GFR 135, Est GFR ( Amer) 163, Glucose 114 H, Calcium 9.3, Total Bilirubin 0.6, AST 30, ALT 27, Alkaline Phosphatase 128 H, Total Protein 7.4, Albumin 4.0, Globulin 3.4 H, Albumin/Globulin Ratio 1.2, Lipase 35, HIV 1&2 Antibody Rapid Nonreactive 04/20/24 06:20: WBC 17.3 H, RBC 3.33 L, Hgb 10.1 L D, Hct 31.0 L, MCV 93.1, MCH 30.3, MCHC 32.6, RDW 12.8, Plt Count 801 H, MPV 7.4, Neut % (Auto) 85.6 H, Lymph % (Auto) 6.7 L, Dickinson % (Auto) 6.1, Eos % (Auto) 0.8, Baso % (Auto) 0.8, Neut # (Auto) 14.8 H, Lymph # (Auto) 1.2, Dickinson # (Auto) 1.1 H, Eos # (Auto) 0.2, Baso # (Auto) 0.1, Sodium 132 L, Potassium 3.5, Chloride 104, Carbon Dioxide 28, Anion Gap 3.5 L, BUN 6 L, Creatinine 0.50 L, Estimated Creat Clear 157, Estimated GFR 135, Est GFR ( Amer) 163, Glucose 116 H, Calcium 8.5, Total Bilirubin 0.6, AST 24, ALT 21, Alkaline Phosphatase 99, Total Protein 6.1 L, Albumin 3.2 L D, Globulin 2.9, Albumin/Globulin Ratio 1.1 I & O for Last 24 hours: Intake & Output 04/17/24 04/18/24 04/19/24 04/20/24 23:59 23:59 23:59 23:59 Output Total 300 / 300 0 / 0 Balance -300 / -300 0 / 0 Weight 151 lb Narrative: Const: NAD, appears fatigued/weak and dehydrated Resp: Normal respiratory effort, no audible wheezing, symmetric chest rise Cardio: tachycardia GI: Abdomen soft, non-tender, non-distended. no guarding : No vulvar/vaginal lesions Normal vaginal mucosa Cuff appears intact on speculum exam and on bimanual exam. There was some blood tinged watery discharge on evaluation Normal appearance of the urethra Skin: No rash or visible lesion. Midline vertical incision well healing and covered with Dermabond. no signs of infection Neuro:No focal deficits Extrem: No visible deformity Psych: Normal mood and demeanor *Routine HEENT Exam Head: Present normocephalic Eye: Present EOMI ENT: Present mucous membranes dry *Routine Respiratory Exam Respiratory: Present CTA bilaterally, normal respiratory effort, able to speak in complete sentences and symmetric chest movement; Absent accessory muscle use or diminished air movement *Routine Cardiovascular Exam Cardiovascular: Present tachycardia *Routine Abdominal Exam Abdominal: Present soft and normoactive bowel sounds; Absent tenderness, distended, rebound or guarding *Routine Rectal Exam Rectal:: deferred *Routine Genitalia Exam Genitalia:: normal female Assessment and Plan *Assessment and plan (1) Abdominal abscess: Status: Acute Category: Medical (2) S/P MARVEL (total abdominal hysterectomy): Status: Acute Category: Surgical Code(s): Z90.710 - Acquired absence of both cervix and uterus (3) Liver lesion: Status: Acute Category: Medical Code(s): K76.9 - Liver disease, unspecified Plan -Start Zosyn -Follow-up CT to monitor abscess progression at 48 to 72 hours -Called radiologist, Dr. Ansari to discuss patient's care. Discussed drainage and transfer. Radiology states abscess is surrounded by greater than 20-30 large vessels and she is not a great candidate for drainage. Discussed the liver lesions. Discussed possibility of liver abscess versus malignancy. -Patient scheduled for an MRI with and without contrast of the abdomen and pelvis -Reviewed with the OR that titanium clips were used intraoperatively. Myself and the patient signed consent forms to proceed with MR for evaluation of the liver lesions -I also discussed the case with Dr. Hidalgo, GI consulted and he will see the patient later today -Continue Phenergan or Zofran as needed nausea -Hold NSAIDs secondary to possible hematoma instead of abscess in the pelvis -Continue acetaminophen and oxycodone for pain management -Potassium and magnesium replaced -Daily CBCs and CMP's -Currently vital signs are stable but we will monitor her very closely
[2024-04-20] MEDS: MAGNESIUM SULFATE IN WATER 2 GM/50 ML PIGGYBACK IV (09:34)
[2024-04-20] MEDS: POTASSIUM CHLORIDE 20MEQ TAB 60 MEQ PO (09:35)
[2024-04-20 10:33] LABS: Lymphocytes % 13 % (10-50); Monocytes % 6 % (2-9); Neutrophils % 81 % (42-76); Platelet Estimate Marked Increase; RBC Morphology Normal; Total Cells Counted 100
--- NOTE | 2024-04-20 11:25 | MR_ITS ---
FINAL REPORT CLINICAL HISTORY: Liver mass COMPARISON: Correlation with CT 04/19/2024 FINDINGS: Planar MR imaging of the abdomen was obtained without and with contrast. There is a 7.8 cm well-circumscribed mass in the lateral segment of the left hepatic lobe. There is a central enhancing scar. The appearance is most worrisome for FNH. There are approximately 6 other masses, largest is in the inferior right hepatic lobe measures 3 cm. These do not appear to represent cysts or typical hemangiomas and are of uncertain etiology. Differential diagnosis would include atypical adenomas, metastatic disease, or other hepatic neoplasm. The spleen, pancreas, spleen and kidneys are unremarkable. IMPRESSION: Mass in the left hepatic lobe with the appearance most worrisome for FNH. Other hepatic masses with differential diagnoses of atypical adenomas, metastatic disease, or other hepatic neoplasm. Masses could be further evaluated with follow-up MRI in 3 months or PET/CT. Reviewed, Interpreted and Dictated by Victor Manuel Gimenez III, MD Transcribed by Ailyn Fitch Authenticated and [facility]
--- NOTE | 2024-04-20 11:25 | MR_ITS ---
FINAL REPORT CLINICAL HISTORY: Liver mass COMPARISON: CT dated 04/19/2024 FINDINGS: Multiplanar MR imaging of the pelvis was obtained without and with contrast. Postoperative changes from hysterectomy are again identified. There is a walled fluid collection in the central lower pelvis in the uterine bed measuring 10.5 x 4.2 cm in maximum axial dimension. There is air and fluid within it. There is peripherally increased T1 signal of the rim. This fluid collection shows peripheral contrast enhancement. The appearance is most worrisome for infected hematoma/abscess. In addition, there is a tubular fluid collection posterior to it measuring 3.6 x 1.4 cm in the left perirectal region of uncertain etiology. This may represent a hematoma, seroma, or abscess. Multiple fluid-filled bowel loops are seen in the pelvis. There is presacral edema, likely reactive. There is widespread contrast enhancement throughout the soft tissues in the lower pelvis, likely inflammatory/postoperative change. IMPRESSION: Fluid collection in the central lower pelvis worrisome for hematoma/abscess. Fluid collection in the left perirectal region, may represent hematoma, seroma, or abscess. Widespread contrast-enhancement throughout the soft tissues, likely inflammatory/postoperative changes Reviewed, Interpreted and Dictated by Victor Manuel Gimenez III, MD Transcribed by Ailyn Fitch Authenticated and [facility]
--- NOTE | 2024-04-20 11:37 | PC.NURSE ---
Pt. off unit via wheelchair to radiology for MRI, pt. accompanied by Radiology staff.
[2024-04-20 12:10] LABS: HCV Ab Non Reactive (Non Reactive)
--- NOTE | 2024-04-20 13:13 | PC.NURSE ---
Pt. back to room 279 via wheelchair. Pt. accompanied by radiology staff.
[2024-04-20] MEDS: SODIUM CHLORIDE 0.9% 50ML BAG 25 ML IV (13:16)
[2024-04-20] MEDS: GADOTERIDOL INJ 20ML SYRINGE 13 ML IV (13:16)
[2024-04-20] MEDS: SODIUM CHLORIDE 0.9% 10ML FLUSH SYRINGE 10 ML IV (13:19)
--- NOTE | 2024-04-20 15:47 | P.CONS_ITS ---
History of Present Illness *Admission Date: 04/19/24 *History of present illness: Mrs. Schofield is a 44-year-old female who had total abdominal hysterectomy 2 weeks ago and returned with nausea. She had no fever or abdominal pain but did have some tenderness. She also had some vaginal bleeding. Her scan did show an 11.3 cm pelvic abscess and she is being treated with antibiotics. White blood cell count on admission was 16.5 thousand. She had some borderline anemia and her hemoglobin hematocrit today were 10.1 and 31.0. On her CAT scan on 04/19 there was a 8.6 cm isodense enhancing mass arising from the left lobe of the liver with central scar. There was some satellite lesions identified. The patient did have an MRI today that showed left hepatic lobe mass with central scar most consistent with focal nodular hyperplasia. There were other potential etiologies in the differential. The patient did not have any evidence of omental or peritoneal carcinomatosis and her recent pelvic surgery with examination of the abdominal organs appeared to be completely benign. The patient has had no abnormal weight loss or abdominal pain. She has no history of pulmonary issues and has had regular breast screening mammograms. She has not had a prior colonoscopy. Her only family history of colon cancer is a paternal great uncle?pancreatic cancer and grandfather with colon cancer at older ages. She reports no bowel issues, reflux. She has had no unintentional weight loss, melena or hematochezia. The nausea is new. [facility] Disclaimer: The information contained in this section may have been updated after the patient was seen, as this information can be updated by other users. Medical History (Updated 04/20/24 @ 15:54 by Tim Hidalgo II, MD) History of COVID-19 Abnormal uterine bleeding (AUB) Surgical History (Updated 04/19/24 @ 14:27 by BRENNEN Leung) History of total abdominal hysterectomy Family History Other Cancer Social History Smoking Status: Never smoker alcohol intake: never substance use type: denies use current occupational status: employed Travel in the last 8 weeks: None household members: family housing: house Meds Home Medications and Allergies Home Medications ?Medication ?Instructions ?Recorded ?Confirmed ?Type sennosides 8.6 mg tablet (Senna 8.6 mg PO BIDP PRN Constipation 04/05/24 04/20/24 Rx Lax) #60 tabs ibuprofen 800 mg tablet 800 mg PO Q8HP PRN Pain (Scale 04/20/24 04/20/24 History Score 4-6) norgestimate 0.25 mg-ethinyl 1 tab PO DAILY 04/20/24 04/20/24 History estradiol 35 mcg tablet (Sprintec (28)) ondansetron 4 mg disintegrating 4 mg PO Q8HP PRN Nausea And 04/20/24 04/20/24 History tablet Vomiting promethazine 12.5 mg tablet 12.5 mg PO Q4HP PRN nausea and 04/20/24 04/20/24 History vomiting simethicone 125 mg tablet 125 mg PO DAILYP PRN FLATULENCE 04/20/24 04/20/24 History New Prescriptions to Start Prescriptions: Allergies Allergy/AdvReac Type Severity Reaction Status Date / Time No Known Allergies Allergy Verified 04/19/24 14:17 Exam (Inpt) Vital signs and Labs for Last 24 Hours: Temp Pulse Resp BP Pulse Ox O2 Del Method 98.5 F 96 H 16 105/65 L 95 Room Air 04/20/24 08:16 04/20/24 08:16 04/20/24 08:16 04/20/24 08:16 04/20/24 08:16 04/20/24 14:11 Laboratory Results - last 24 hr 04/19/24 17:05: WBC 17.9 H, RBC 3.96 L, Hgb 12.1 L, Hct 36.6 L, MCV 92.4, MCH 30.7, MCHC 33.2, RDW 12.8, Plt Count 917 H*, MPV 7.5, Neut % (Auto) 87.2 H, L ymph % (Auto) 6.7 L, Douglas % (Auto) 4.0, Eos % (Auto) 1.2, Baso % (Auto) 0.8, N eut # (Auto) 15.6 H, Lymph # (Auto) 1.2, Douglas # (Auto) 0.7, Eos # (Auto) 0.2, Baso # (Auto) 0.1, Sodium 131 L, Potassium 3.6, Chloride 100, Carbon Dioxide 28, Anion Gap 6.6, BUN 8, Creatinine 0.50 L, Estimated Creat Clear 157, Estimated GFR 135, Est GFR ( Amer) 163, Glucose 114 H, Calcium 9.3, Total Bilirubin 0.6, AST 30, ALT 27, Alkaline Phosphatase 128 H, Total Protein 7.4, Albumin 4.0, Globulin 3.4 H, Albumin/Globulin Ratio 1.2, Lipase 35, Hepatitis C Antibody Non reactive, HIV 1&2 Antibody Rapid Nonreactive 04/20/24 06:20: WBC 17.3 H, RBC 3.33 L, Hgb 10.1 L D, Hct 31.0 L, MCV 93.1, MCH 30.3, MCHC 32.6, RDW 12.8, Plt Count 801 H, MPV 7.4, Neut % (Auto) 85.6 H, Lymph % (Auto) 6.7 L, Douglas % (Auto) 6.1, Eos % (Auto) 0.8, Baso % (Auto) 0.8, Neut # (Auto) 14.8 H, Lymph # (Auto) 1.2, Douglas # (Auto) 1.1 H, Eos # (Auto) 0.2, Baso # (Auto) 0.1, Total Counted 100, Neutrophils % (Manual) 81 H, Lymphocytes % (Manual) 13, Monocytes % (Manual) 6, Platelet Estimate Marked increase, RBC Morphology Normal, Sodium 132 L, Potassium 3.5, Chloride 104, Carbon Dioxide 28, Anion Gap 3.5 L, BUN 6 L, Creatinine 0.50 L, Estimated Creat Clear 157, Estimated GFR 135, Est GFR ( Amer) 163, Glucose 116 H, Calcium 8.5, Total Bilirubin 0.6, AST 24, ALT 21, Alkaline Phosphatase 99, Total Protein 6.1 L, A lbumin 3.2 L D, Globulin 2.9, Albumin/Globulin Ratio 1.1 I & O for Labs for Last 24 Hours: Intake & Output 04/17/24 04/18/24 04/19/24 04/20/24 23:59 23:59 23:59 23:59 Output Total 300 / 300 0 / 0 Balance -300 / -300 0 / 0 Weight 151 lb Results Labs 04/20/24 06:20 04/20/24 06:20 Labs: Laboratory Results - last 24 hr 04/19/24 17:05: WBC 17.9 H, RBC 3.96 L, Hgb 12.1 L, Hct 36.6 L, MCV 92.4, MCH 30.7, MCHC 33.2, RDW 12.8, Plt Count 917 H*, MPV 7.5, Neut % (Auto) 87.2 H, L ymph % (Auto) 6.7 L, Douglas % (Auto) 4.0, Eos % (Auto) 1.2, Baso % (Auto) 0.8, N eut # (Auto) 15.6 H, Lymph # (Auto) 1.2, Douglas # (Auto) 0.7, Eos # (Auto) 0.2, Baso # (Auto) 0.1, Sodium 131 L, Potassium 3.6, Chloride 100, Carbon Dioxide 28, Anion Gap 6.6, BUN 8, Creatinine 0.50 L, Estimated Creat Clear 157, Estimated GFR 135, Est GFR ( Amer) 163, Glucose 114 H, Calcium 9.3, Total Bilirubin 0.6, AST 30, ALT 27, Alkaline Phosphatase 128 H, Total Protein 7.4, Albumin 4.0, Globulin 3.4 H, Albumin/Globulin Ratio 1.2, Lipase 35, Hepatitis C Antibody Non reactive, HIV 1&2 Antibody Rapid Nonreactive 04/20/24 06:20: WBC 17.3 H, RBC 3.33 L, Hgb 10.1 L D, Hct 31.0 L, MCV 93.1, MCH 30.3, MCHC 32.6, RDW 12.8, Plt Count 801 H, MPV 7.4, Neut % (Auto) 85.6 H, Lymph % (Auto) 6.7 L, Douglas % (Auto) 6.1, Eos % (Auto) 0.8, Baso % (Auto) 0.8, Neut # (Auto) 14.8 H, Lymph # (Auto) 1.2, Douglas # (Auto) 1.1 H, Eos # (Auto) 0.2, Baso # (Auto) 0.1, Total Counted 100, Neutrophils % (Manual) 81 H, Lymphocytes % (Manual) 13, Monocytes % (Manual) 6, Platelet Estimate Marked increase, RBC Morphology Normal, Sodium 132 L, Potassium 3.5, Chloride 104, Carbon Dioxide 28, Anion Gap 3.5 L, BUN 6 L, Creatinine 0.50 L, Estimated Creat Clear 157, Estimated GFR 135, Est GFR ( Amer) 163, Glucose 116 H, Calcium 8.5, Total Bilirubin 0.6, AST 24, ALT 21, Alkaline Phosphatase 99, Total Protein 6.1 L, A lbumin 3.2 L D, Globulin 2.9, Albumin/Globulin Ratio 1.1 Assessment and Plan *Assessment and plan (1) Liver mass, left lobe: Status: Acute Category: Medical Code(s): R16.0 - Hepatomegaly, not elsewhere classified (2) Focal nodular hyperplasia of liver: Status: Acute Category: Medical Code(s): K76.89 - Other specified diseases of liver Plan 1. Left lobe liver mass with central scar. FNH is the most likely etiology. Focal nodular hyperplasia (FNH) is the most frequent benign or nonmalignant (noncancerous) liver tumor which is not of vascular origin and is the second most common benign liver lesion. The liver is the only self-regenerative internal organ in the human body, and this regenerative ability puts the liver at risk for development of atypical masses such as FNH. FNH is thought to be the result of increased hepatocytes caused by hypoperfusion or hyperperfusion from anomalous arteries in the hepatic lobule. The hallmark of FNH is a central scar which is most definitive of this lesion. The vast majority of these are solid and less than 5 cm. Hers was 7.8 cm. Symptoms attributable to FNH are very infrequent. Treatment is conservative and generally no treatment is widely accepted since these remain stable and do not change lead time and do not result in any complications. It is sometimes reasonable to do a followup study in 6-12 months to assess whether there is any change. However, when it is clearly and definitively diagnosed with no changes there is no required treatment or even regular follow-up. I would take a conservative approach and initially send tumor markers (i.e. AFP (alpha-fetoprotein), CEA and CA 19-9). The patient does have normal liver chemistries. If her tumor markers are elevated, we would then need to consider whether this is primary (elevated AFP) or secondary (elevated CEA or CA 19-9). I have discussed the initial approach with the patient, family and Dr. Arauz.
[2024-04-20 16:22] VITALS: BP 119/71; PULSE 96; RESP 18; TEMP 36.4; O2SAT 100
[2024-04-20 20:25] VITALS: BP 110/66; PULSE 99; RESP 18; TEMP 36.4; O2SAT 99
[2024-04-20 20:30] VITALS: O2SAT 99
[2024-04-21] MEDS: PIPERACILLIN/TAZO 3.375 GM in 0.9 % SODIUM CHLORIDE 50 ML IV ×4 (00:05→17:45)
[2024-04-21] MEDS: ONDANSETRON 4MG ODT 4 MG SL ×3 (00:35→22:57)
[2024-04-21] MEDS: LACTATED RINGERS 1000ML 1,000 ML 75 ML IV (03:12)
[2024-04-21 03:13] VITALS: BP 101/68; PULSE 88; RESP 18; TEMP 37; O2SAT 97
[2024-04-21 08:21] LABS: AFP, Tumor Marker 2.1 ng/mL (0.0-6.4); CA 19-9 15 U/mL (0-35); CEA <0.6 ng/mL (0.0-4.7)
--- NOTE | 2024-04-21 08:33 | EXP.PN ---
Subjective *Date: 04/21/24 *Time: 08:33 Interval history: Prerna is a 44yo POD#17, HD#2 for a pelvic abscess after abdominal hysterectomy. This morning Prerna appears to be feeling better. She was able to get a shower yesterday. She ate sherbet and a few bites of chicken for dinner. She did have an episdoe of dry heaving but no emesis. She was eating applesauce this morning when I saw her. Her bowels are active and she is passing gas. She has not had a BM in 2 days Exam Data for Last 24 hours Vital signs and Labs for Last 24 Hours: Temp Pulse Resp BP Pulse Ox O2 Del Method 98.6 F 88 18 101/68 L 97 Room Air 04/21/24 03:13 04/21/24 03:13 04/21/24 03:13 04/21/24 03:13 04/21/24 03:13 04/21/24 07:25 Laboratory Results - last 24 hr 04/19/24 17:05: Hepatitis C Antibody Non reactive 04/20/24 06:20: Hgb 10.1 L D, Total Counted 100, Neutrophils % (Manual) 81 H, Lymphocytes % (Manual) 13, Monocytes % (Manual) 6, Platelet Estimate Marked increase, RBC Morphology Normal 04/20/24 15:59: Tumor Marker AFP 2.1, Carcinoembryonic Ag <0.6, CA 19-9 Antigen 15 I & O for Last 24 hours: Intake & Output 04/18/24 04/19/24 04/20/24 04/21/24 23:59 23:59 23:59 23:59 Intake Total 953 / 953 Output Total 300 / 300 0 / 0 0 / 0 Balance -300 / -300 0 / 0 953 / 953 Weight 151 lb Microbiology Reports for the Last 24 Hours: Microbiology 04/19/24 21:29 Blood Blood Culture - Preliminary NO GROWTH AFTER 24 HOURS 04/19/24 21:29 Blood Blood Culture - Preliminary NO GROWTH AFTER 24 HOURS Constitutional Constitutional: no acute distress *Routine HEENT Exam Head: Present normocephalic Eye: Present EOMI and PERRL ENT: Present mucous membranes moist *Routine Neck Exam Neck: Present supple; Absent lymphadenopathy *Routine Respiratory Exam Respiratory: Present CTA bilaterally *Routine Cardiovascular Exam Cardiovascular: Present RRR *Routine Abdominal Exam Abdominal: Present soft and normoactive bowel sounds; Absent tenderness *Routine Extremities Exam Extremities: Absent cyanosis, clubbing or edema *Routine Skin Exam Skin: Present warm; Absent rash Comments: Well healing midline vertical incision. No redness, drainage, warmth, or signs of infection *Routine Neurological Exam Neurological: Present alert and oriented X3 Assessment and Plan *Assessment and plan (1) Focal nodular hyperplasia of liver: Status: Acute Category: Medical Code(s): K76.89 - Other specified diseases of liver (2) Liver mass, left lobe: Status: Acute Category: Medical Code(s): R16.0 - Hepatomegaly, not elsewhere classified (3) Liver lesion: Status: Acute Category: Medical Code(s): K76.9 - Liver disease, unspecified (4) Abdominal abscess: Status: Acute Category: Medical (5) S/P MARVEL (total abdominal hysterectomy): Status: Acute Category: Surgical Code(s): Z90.710 - Acquired absence of both cervix and uterus Plan -Continue IV Zosyn -After discussion with radiology, DrVictor Manuel, he does not feel the location of the hematoma/abscess is amenable to drainage. We will continue IV antibiotics. Discussed with him optimal interval to follow up for shrinkage of area of concern to be 5-7 days. Discussed with patient we would not repeat imaging until Wednesday at the earliest. -Encouraged chewing gum, ambulation, SCDs while in bed, and incentive spirometer -Continue bland diet -Continue Phenergan or Zofran as needed nausea -Hold NSAIDs secondary to possible hematoma instead of abscess in the pelvis -Continue acetaminophen and oxycodone for pain management -Daily CBCs and CMP's -Currently vital signs are stable but we will monitor her very closely I am very thankful for GI and radiology rapid assistance with this patients care. GI was very reassuring and helpful. She had tumour markers collected yesterday and all are appropriate. LFTs remain wnl. We will order follow up imaging and a follow up outpatient GI visit.
[2024-04-21 08:34] LABS: Basophils # 0.2 K/mm3 (0-0.2); Eosinophils # 0.3 K/mm3 (0.0-0.4); Eosinophils % 1.9 % (0.1-12.0); Hematocrit 33.8 % (37.0-47.0); Lymphocytes # 1.3 K/mm3 (0.7-4.5); Lymphocytes % 8.6 % (10-50); Mean Corpuscular HGB Conc 32.6 g/dL (31.8-35.4); Mean Corpuscular Hemoglobin 30.5 pg (27.0-31.2); Mean Corpuscular Volume 93.8 fl (81-99); Mean Platelet Volume 7.1 fl (7.4-10.4); Monocytes # 0.8 K/mm3 (0.1-1.0); Neutrophils # 12.7 K/mm3 (1.8-7.8); Neutrophils % 83.5 % (37.0-80.0); Platelet Count 921 K/mm3 (142-424); Red Blood Count 3.61 M/mm3 (4.20-5.40); Red Cell Distribution Width 12.6 % (11.5-17.5); White Blood Count 15.2 K/mm3 (4.8-10.8)
[2024-04-21 08:36] LABS: MANUAL DIFFERENTIAL MANUAL DIFFERENTIAL (MANUAL DIFF)
[2024-04-21 08:42] VITALS: BP 110/69; PULSE 92; RESP 18; TEMP 36.7; O2SAT 100; O2SAT 98
[2024-04-21 08:54] LABS: Albumin Level 3.5 g/dl (3.5-5.0); Chloride 105 mmol/L (98-107); Potassium 4.1 mmoL/L (3.5-5.1); Sodium 137 mmol/L (136-145)
[2024-04-21 08:57] LABS: Alanine Aminotransferase 22 U/L (12-78); Albumin/Globulin Ratio 1.2 (1.1-1.8); Alkaline Phosphatase 115 U/L (38-126); Anion Gap 10.1 mEq/L (5-15); Aspartate Amino Transferase 30 U/L (14-36); Bilirubin,Total 0.6 mg/dl (0.2-1.3); Blood Urea Nitrogen 5 mg/dl (7-17); Calcium 8.8 mg/dl (8.4-10.2); Carbon Dioxide 26 mmol/L (22.0-30.0); Creatinine Clearance Estimated 157 mL/min (50-200); Estimated Glomerular Filt Rate 135 ml/min (>60); GFR (African American) 163 ML/MIN (>60); Glucose 110 mg/dl (74-100); Total Protein,Serum 6.5 g/dl (6.3-8.2)
[2024-04-21 09:42] LABS: Lymphocytes % 14 % (10-50); Monocytes % 3 % (2-9); Neutrophils % 83 % (42-76); Platelet Estimate Marked Increase; RBC Morphology Normal; Total Cells Counted 100
--- NOTE | 2024-04-21 12:57 | P.PN_ITS ---
Subjective *Date: 04/21/24 *Time: 12:57 Interval history: Patient still little nauseated but otherwise unchanged and doing well with no abdominal complaints. Exam Data for Last 24 hours Vital signs and Labs for Last 24 Hours: Temp Pulse Resp BP Pulse Ox O2 Del Method 98.1 F 92 H 18 110/69 100 Room Air 04/21/24 08:42 04/21/24 08:42 04/21/24 08:42 04/21/24 08:42 04/21/24 08:42 04/21/24 12:05 Laboratory Results - last 24 hr 04/20/24 15:59: Tumor Marker AFP 2.1, Carcinoembryonic Ag <0.6, CA 19-9 Antigen 15 04/21/24 08:16: WBC 15.2 H, RBC 3.61 L, Hgb 11.0 L, Hct 33.8 L, MCV 93.8, MCH 30.5, MCHC 32.6, RDW 12.6, Plt Count 921 H*, MPV 7.1 L, Neut % (Auto) 83.5 H, Lymph % (Auto) 8.6 L, [place] % (Auto) 5.0, Eos % (Auto) 1.9, Baso % (Auto) 1.0, Neut # (Auto) 12.7 H, Lymph # (Auto) 1.3, [place] # (Auto) 0.8, Eos # (Auto) 0.3, Baso # (Auto) 0.2, Total Counted 100, Neutrophils % (Manual) 83 H, Lymphocytes % (Manual) 14, Monocytes % (Manual) 3, Platelet Estimate Marked increase, RBC Morphology Normal, Sodium 137, Potassium 4.1, Chloride 105, Carbon Dioxide 26, Anion Gap 10.1, BUN 5 L, Creatinine 0.50 L, Estimated Creat Clear 157, Estimated GFR 135, Est GFR ( Amer) 163, Glucose 110 H, Calcium 8.8, Total Bilirubin 0.6, AST 30, ALT 22, Alkaline Phosphatase 115, Total Protein 6.5, Albumin 3.5, Globulin 3.0, Albumin/Globulin Ratio 1.2 I & O for Last 24 hours: Intake & Output 04/18/24 04/19/24 04/20/24 04/21/24 23:59 23:59 23:59 23:59 Intake Total 953 / 953 Output Total 300 / 300 0 / 0 0 / 0 Balance -300 / -300 0 / 0 953 / 953 Weight 151 lb Microbiology Reports for the Last 24 Hours: Microbiology 04/19/24 21:29 Blood Blood Culture - Preliminary NO GROWTH AFTER 24 HOURS 04/19/24 21:29 Blood Blood Culture - Preliminary NO GROWTH AFTER 24 HOURS Assessment and Plan *Assessment and plan (1) Focal nodular hyperplasia of liver: Status: Acute Category: Medical Code(s): K76.89 - Other specified diseases of liver (2) Liver mass, left lobe: Status: Acute Category: Medical Code(s): R16.0 - Hepatomegaly, not elsewhere classified Plan 1. Liver mass?left lobe with characteristics of benign focal nodular hyperplasia. Tumor markers reviewed and are normal (AFP 2.1, CEA less than 0.6 and CA 19-9 15). Given the MR characteristics with central scar, normal tumor markers and no constitutional symptoms with normal liver chemistries, this is most reliably FNH and I would not recommend guided biopsy which carries higher bleeding risk. I would recommend surveillance imaging/MR hepatic protocol in 6 months.
--- NOTE | 2024-04-21 13:50 | PC.NURSE ---
13:40 Pt. up walking around room with spouse. Pt. tolerating well.
[2024-04-21 16:40] VITALS: BP 108/92; PULSE 85; RESP 16; TEMP 36.9; O2SAT 96
[2024-04-21 17:12] VITALS: BP 111/63
[2024-04-21 20:22] VITALS: BP 111/68; PULSE 90; RESP 17; TEMP 36.9; O2SAT 97
[2024-04-22] MEDS: PIPERACILLIN/TAZO 3.375 GM in 0.9 % SODIUM CHLORIDE 50 ML IV ×3 (00:01→10:41)
[2024-04-22 04:35] VITALS: BP 110/69; PULSE 91; RESP 17; TEMP 36.6; O2SAT 98
[2024-04-22 07:28] VITALS: BP 112/66; PULSE 86; RESP 13; TEMP 36.6; O2SAT 99
[2024-04-22 07:38] LABS: Basophils # 0.2 K/mm3 (0-0.2); Basophils % 1.2 % (0.1-2.0); Eosinophils # 0.3 K/mm3 (0.0-0.4); Eosinophils % 1.7 % (0.1-12.0); Hematocrit 33.4 % (37.0-47.0); Hemoglobin 11.3 g/dL (12.2-16.2); Lymphocytes # 1.4 K/mm3 (0.7-4.5); Lymphocytes % 9.8 % (10-50); Mean Corpuscular HGB Conc 33.9 g/dL (31.8-35.4); Mean Corpuscular Hemoglobin 31.2 pg (27.0-31.2); Mean Platelet Volume 7.3 fl (7.4-10.4); Monocytes # 0.9 K/mm3 (0.1-1.0); Monocytes % 5.9 % (1.7-9.3); Neutrophils # 11.7 K/mm3 (1.8-7.8); Neutrophils % 81.4 % (37.0-80.0); Platelet Count 876 K/mm3 (142-424); Red Blood Count 3.63 M/mm3 (4.20-5.40); Red Cell Distribution Width 12.7 % (11.5-17.5); White Blood Count 14.4 K/mm3 (4.8-10.8)
[2024-04-22 07:43] LABS: Chloride 103 mmol/L (98-107)
[2024-04-22 07:44] LABS: Albumin Level 3.3 g/dl (3.5-5.0); Potassium 4.1 mmoL/L (3.5-5.1); Sodium 135 mmol/L (136-145)
[2024-04-22 07:47] LABS: Alanine Aminotransferase 22 U/L (12-78); Albumin/Globulin Ratio 1.1 (1.1-1.8); Alkaline Phosphatase 116 U/L (38-126); Anion Gap 9.1 mEq/L (5-15); Aspartate Amino Transferase 27 U/L (14-36); Bilirubin,Total 0.6 mg/dl (0.2-1.3); Blood Urea Nitrogen 5 mg/dl (7-17); Calcium 8.7 mg/dl (8.4-10.2); Carbon Dioxide 27 mmol/L (22.0-30.0); Creatinine Clearance Estimated 157 mL/min (50-200); Estimated Glomerular Filt Rate 135 ml/min (>60); GFR (African American) 163 ML/MIN (>60); Glucose 106 mg/dl (74-100); Total Protein,Serum 6.3 g/dl (6.3-8.2)
--- NOTE | 2024-04-22 08:45 | PC.NURSE ---
Morning assessment complete. Pt reports no pain or nausea at this time. She is currently working on eating some applesauce. States she can only eat certain foods without experiencing n/v. (+) BS all 4 quads. Lungs clear bilat. No edema noted. Scuds off at this time. SP HYST vertical incision to abdomen, well approximated, healing well, YEIM, no s/s of infection. Small quarter size bruise noted to left side of incision. Abdomen non-tender to palpate everywhere except in this area. Palpates soft, just tender. IV saline lock in rt ac. Reports (+) flatus, bms and voiding well. Her is at bs attentive to her needs. Verbalized use of call benavidez if she needs assistance.
--- NOTE | 2024-04-22 08:59 | PC.NURSE ---
Pt ambulating in hallway.
[2024-04-22] MEDS: ONDANSETRON 4MG ODT 4 MG SL ×2 (10:41→22:05)
--- NOTE | 2024-04-22 11:26 | PC.NURSE ---
Pt reports relief from Zofran. She is attempting to sleep at this time. No visitors at bs.
--- NOTE | 2024-04-22 13:27 | PC.NURSE ---
at bs to see pt.
--- NOTE | 2024-04-22 14:21 | EXP.ACUTE.PN ---
Subjective *Date: 04/22/24 *Time: 14:21 Interval history: POD#18, HD#3 for a pelvic abscess/infected hematoma after abdominal hysterectomy with bilateral salpingectomy. Prerna appears to be feeling better. She admits to red vaginal discharge/bleeding but denies pain. She had a normal BM yesterday. She admits the nausea and vomiting/dry heaving is the worst. When she sits up she feels it coming on. She has been able to eat some sherbert and yogurt today. She is drinking Pedialyte. She feels like she has eaten a little more today than yesterday but still is not eating much. She doesn't do well with promethazine but is taking zofran as needed. She admits she tries to call out for zofran if she feels the nausea/dry heaves coming. She is voiding without difficulty. Denies fever/chills, chest pain and shortness of breath. She walked the halls yesterday and this morning. She states if she could just get the nausea and vomiting under control she would really like to go home. Medical Exam Vital signs and Labs for Last 24 Hours: Vital Signs Temp Pulse Resp BP Pulse Ox O2 Del Method 04/22/24 12:25 Room Air 04/22/24 10:30 Room Air 04/22/24 08:35 Room Air 04/22/24 07:28 97.8 F 86 13 112/66 99 Room Air 04/22/24 06:18 Room Air 04/22/24 05:44 Room Air 04/22/24 04:37 Room Air 04/22/24 04:37 Room Air 04/22/24 04:35 98 F 91 H 17 110/69 98 Room Air 04/22/24 02:41 Room Air 04/22/24 01:39 Room Air 04/22/24 00:31 Room Air 04/21/24 23:27 Room Air 04/21/24 22:01 Room Air 04/21/24 21:18 Room Air 04/21/24 20:22 98.5 F 90 17 111/68 97 Room Air 04/21/24 20:22 Room Air 04/21/24 20:22 Room Air 04/21/24 19:41 Room Air 04/21/24 17:50 Room Air 12/13/24 17:12 111/63 04/21/24 16:40 96 Room Air 04/21/24 16:40 98.5 F 85 16 108/92 L 96 Room Air 04/21/24 16:40 Room Air Intake and Output 04/21/24 04/22/24 04/22/24 23:59 07:59 15:59 Output Total 0 / 0 0 / 0 Balance 0 / 0 0 / 0 Output: Output, Urine Amount 0 / 0 0 / 0 Other: Number of Unmeasured Voids 2 1 Laboratory Results - last 24 hr 04/22/24 07:25: WBC 14.4 H, RBC 3.63 L, Hgb 11.3 L, Hct 33.4 L, MCV 92.0, MCH 31.2, MCHC 33.9, RDW 12.7, Plt Count 876 H, MPV 7.3 L, Neut % (Auto) 81.4 H, Lymph % (Auto) 9.8 L, [place] % (Auto) 5.9, Eos % (Auto) 1.7, Baso % (Auto) 1.2, Neut # (Auto) 11.7 H, Lymph # (Auto) 1.4, [place] # (Auto) 0.9, Eos # (Auto) 0.3, Baso # (Auto) 0.2, Sodium 135 L, Potassium 4.1, Chloride 103, Carbon Dioxide 27, Anion Gap 9.1, BUN 5 L, Creatinine 0.50 L, Estimated Creat Clear 157, Estimated GFR 135, Est GFR ( Amer) 163, Glucose 106 H, Calcium 8.7, Total Bilirubin 0.6, AST 27, ALT 22, Alkaline Phosphatase 116, Total Protein 6.3, Albumin 3.3 L, Globulin 3.0, Albumin/Globulin Ratio 1.1 I & O for Labs for Last 24 Hours: Intake & Output 04/19/24 04/20/24 04/21/24 04/22/24 23:59 23:59 23:59 23:59 Intake Total 953 / 953 Output Total 300 / 300 0 / 0 0 / 0 0 / 0 Balance -300 / -300 0 / 0 953 / 953 0 / 0 Weight 151 lb Microbiology Reports for the Last 24 Hours: Microbiology 04/19/24 21:29 Blood Blood Culture - Preliminary NO GROWTH AFTER 48 HOURS 04/19/24 21:29 Blood Blood Culture - Preliminary NO GROWTH AFTER 48 HOURS Head: Present atraumatic and normocephalic ENT: Present normal exam Neck: Present normal inspection and full ROM Respiratory: Present CTA bilaterally and normal respiratory effort Cardiac: Present Reg Rate and Rhythm GI: Present soft and normal bowel sounds (distant bowel sounds RUQ and RLQ; normal bowel sounds LUQ and LLQ); Absent distention, tenderness, guarding or rebound Rectal (female): Present deferred (female): Present deferred Extremities: Present normal inspection and full ROM; Absent edema or calf tenderness Neuro: Present alert, awake and moves all extremities Assessment and Plan *Assessment and plan (1) S/P MARVEL (total abdominal hysterectomy): Status: Acute Category: Surgical Code(s): Z90.710 - Acquired absence of both cervix and uterus (2) Abdominal abscess: Status: Acute Category: Medical (3) Liver lesion: Status: Acute Category: Medical Code(s): K76.9 - Liver disease, unspecified (4) Focal nodular hyperplasia of liver: Status: Acute Category: Medical Code(s): K76.89 - Other specified diseases of liver (5) Nausea with vomiting: Status: Acute Category: Medical Code(s): R11.2 - Nausea with vomiting, unspecified Plan Prerna admits N/V and dry heaving is the worst. D/c promethazine. Compazine 5 mg q 6 hr PRN ordered. Continue zofran PRN Vital signs stable, afebrile Continue Zosyn Repeat labs in the AM Continue acetaminophen and oxycodone for pain management Encouraged walking in the halls Close monitoring Plan for repeat CT scan 04/24/24, to evaluate size of abscess/infected hematoma
[2024-04-22] MEDS: PROCHLORPERAZINE 10MG/2ML VIAL 5 MG IV (15:00)
[2024-04-22 16:56] VITALS: BP 117/77; PULSE 108; RESP 12; TEMP 36.7; O2SAT 98
--- NOTE | 2024-04-22 17:05 | PC.NURSE ---
IV discontinued in rt ac d/t infiltration. New IV started in left ac x 1 stick. Tolerated well.
--- NOTE | 2024-04-22 17:23 | PC.NURSE ---
Pt has rested some this afternoon. She was given Compazine (see mar). Reports relief from nausea currently. New IV site has infiltrated in left ac. Will restart new IV site after pt tries to eat something for supper (states she wants to try to eat something first). No further changes from previous assessment. Sig other remains at bs attentive to pt's needs.
[2024-04-22 20:27] VITALS: BP 120/67; PULSE 102; RESP 17; TEMP 36.9; O2SAT 98
[2024-04-22 20:28] VITALS: PULSE 102; O2SAT 98
--- NOTE | 2024-04-22 22:39 | PC.NURSE ---
Dr. oMntoya informed of failed USIV attempts and partial dose of IV Zosyn administered at 1700 before IV infiltration . Verbal orders received to DC IV attempts and let pt rest tonight. Verbal order received for Compazine 5 mg PO Q6h PRN. Orders r/v.
[2024-04-23 04:50] VITALS: BP 112/65; PULSE 102; RESP 17; TEMP 36.7; O2SAT 97
[2024-04-23 05:16] VITALS: PULSE 102; O2SAT 97
--- NOTE | 2024-04-23 05:24 | PC.NURSE ---
Pt sitting up in bed watching tv at this time. at bedside. Pt reports no current nausea nor vomiting episodes. Applesauce provided per pt request. No further needs.
--- NOTE | 2024-04-23 06:58 | PC.NURSE ---
Report given to Dimitry Samuels RN
--- NOTE | 2024-04-23 07:45 | PC.NURSE ---
Pt asleep at this time. She still has not eaten her breakfast. Her is asleep in sleep chair at .
[2024-04-23 08:18] LABS: Albumin Level 3.5 g/dl (3.5-5.0); Chloride 102 mmol/L (98-107)
[2024-04-23 08:19] LABS: Potassium 4.2 mmoL/L (3.5-5.1); Sodium 134 mmol/L (136-145)
[2024-04-23 08:21] LABS: Alanine Aminotransferase 26 U/L (12-78); Albumin/Globulin Ratio 1.2 (1.1-1.8); Anion Gap 9.2 mEq/L (5-15); Aspartate Amino Transferase 31 U/L (14-36); Blood Urea Nitrogen 5 mg/dl (7-17); Carbon Dioxide 27 mmol/L (22.0-30.0); Creatinine Clearance Estimated 157 mL/min (50-200); Estimated Glomerular Filt Rate 135 ml/min (>60); GFR (African American) 163 ML/MIN (>60); Total Protein,Serum 6.5 g/dl (6.3-8.2)
[2024-04-23 08:22] LABS: Alkaline Phosphatase 128 U/L (38-126); Bilirubin,Total 0.6 mg/dl (0.2-1.3); Calcium 8.8 mg/dl (8.4-10.2); Glucose 104 mg/dl (74-100)
[2024-04-23 08:44] LABS: Hematocrit 31.8 % (37.0-47.0); Hemoglobin 10.2 g/dL (12.2-16.2); Mean Corpuscular HGB Conc 32.1 g/dL (31.8-35.4); Mean Corpuscular Hemoglobin 29.8 pg (27.0-31.2); Red Blood Count 3.42 M/mm3 (4.20-5.40); Red Cell Distribution Width 11.7 % (11.5-17.5); White Blood Count 14.8 K/mm3 (4.8-10.8)
[2024-04-23 08:45] LABS: Basophils % 0.9 % (0.1-2.0); Eosinophils % 1.2 % (0.1-12.0); Lymphocytes # 1.4 K/mm3 (0.7-4.5); Lymphocytes % 9.3 % (10-50); Mean Platelet Volume 9.2 fl (7.4-10.4); Monocytes # 1.4 K/mm3 (0.1-1.0); Monocytes % 9.5 % (1.7-9.3); Neutrophils # 11.6 K/mm3 (1.8-7.8); Neutrophils % 78.2 % (37.0-80.0); Platelet Count 952 K/mm3 (142-424)
[2024-04-23 08:46] LABS: Basophils # 0.1 K/mm3 (0-0.2); Eosinophils # 0.2 K/mm3 (0.0-0.4)
--- NOTE | 2024-04-23 08:52 | PC.NURSE ---
Pt remains soundly asleep. Her is asleep at bs in sleep chair.
[2024-04-23 09:00] VITALS: BP 120/69; PULSE 102; RESP 18; TEMP 36.7; O2SAT 99
[2024-04-23 09:10] VITALS: O2SAT 99
--- NOTE | 2024-04-23 10:04 | EXP.PHA.PN ---
Subjective *Date: 04/23/24 *Time: 10:04 Medical Exam Vital signs and Labs for Last 24 Hours: Vital Signs Temp Pulse Resp BP Pulse Ox O2 Del Method 04/23/24 09:30 Room Air 04/23/24 09:10 99 Room Air 04/23/24 09:00 98.0 F 102 H 18 120/69 99 Room Air 04/23/24 07:30 Room Air 04/23/24 05:22 Room Air 04/23/24 05:16 102 H 97 Room Air 04/23/24 04:50 98.1 F 102 H 17 112/65 97 Room Air 04/23/24 03:24 Room Air 04/23/24 01:42 Room Air 04/22/24 23:05 Room Air 04/22/24 21:36 Room Air 04/22/24 20:28 102 H 98 Room Air 04/22/24 20:27 98.5 F 102 H 17 120/67 98 Room Air 04/22/24 19:38 Room Air 04/22/24 17:36 Room Air 04/22/24 16:56 98.1 F 108 H 12 117/77 98 Room Air 04/22/24 14:30 Room Air 04/22/24 12:25 Room Air 04/22/24 10:30 Room Air Intake and Output 04/22/24 04/23/24 04/23/24 23:59 07:59 15:59 Output Total 0 / 0 0 / 0 Balance 0 / 0 0 / 0 Output: Output, Urine Amount 0 / 0 0 / 0 Other: Number of Unmeasured Voids 1 1 1 Laboratory Results - last 24 hr 04/23/24 08:00: WBC 14.8 H, RBC 3.42 L, Hgb 10.2 L, Hct 31.8 L, MCV 93.0, MCH 29.8, MCHC 32.1, RDW 11.7, Plt Count 952 H*, MPV 9.2, Neut % (Auto) 78.2, Lymph % (Auto) 9.3 L, [place] % (Auto) 9.5 H, Eos % (Auto) 1.2, Baso % (Auto) 0.9, Neut # (Auto) 11.6 H, Lymph # (Auto) 1.4, [place] # (Auto) 1.4 H, Eos # (Auto) 0.2, Baso # (Auto) 0.1, Sodium 134 L, Potassium 4.2, Chloride 102, Carbon Dioxide 27, Anion Gap 9.2, BUN 5 L, Creatinine 0.50 L, Estimated Creat Clear 157, Estimated GFR 135, Est GFR ( Amer) 163, Glucose 104 H, Calcium 8.8, Magnesium 2.0, Total Bilirubin 0.6, AST 31, ALT 26, Alkaline Phosphatase 128 H, Total Protein 6.5, Albumin 3.5, Globulin 3.0, Albumin/Globulin Ratio 1.2 I & O for Labs for Last 24 Hours: Intake & Output 04/20/24 04/21/24 04/22/24 04/23/24 23:59 23:59 23:59 23:59 Intake Total 953 / 953 Output Total 0 / 0 0 / 0 0 / 0 0 / 0 Balance 0 / 0 953 / 953 0 / 0 0 / 0 The patient's infection will respond to the chosen ABx?: Yes Is the patient receiving the right drug, dose, and route?: Yes Could a more targeted ABx be ordered?: No (AFEBRILE, WBC DECREASED, KLEBSIELLA + URINE (SENSITIVE))
--- NOTE | 2024-04-23 10:55 | P.PN_ITS ---
Subjective *Date: 04/23/24 *Time: 10:55 Interval history: POD#19, HD#4 for a pelvic abscess/infected hematoma after abdominal hysterectomy with bilateral salpingectomy. Prerna is feeling better. Nausea and dry heaving is better. She had compazine once yesterday and zofran once last night. She ate breakfast this morning. She is drinking Pedialyte. She is voiding without difficulty and passing flatus. Denies fever/chills, chest pain and shortness of breath. She is ambulating well ad vaishali. Medical Exam Vital signs and Labs for Last 24 Hours: Vital Signs Temp Pulse Resp BP Pulse Ox O2 Del Method 04/23/24 09:30 Room Air 04/23/24 09:10 99 Room Air 04/23/24 09:00 98.0 F 102 H 18 120/69 99 Room Air 04/23/24 07:30 Room Air 04/23/24 05:22 Room Air 04/23/24 05:16 102 H 97 Room Air 04/23/24 04:50 98.1 F 102 H 17 112/65 97 Room Air 04/23/24 03:24 Room Air 04/23/24 01:42 Room Air 04/22/24 23:05 Room Air 04/22/24 21:36 Room Air 04/22/24 20:28 102 H 98 Room Air 04/22/24 20:27 98.5 F 102 H 17 120/67 98 Room Air 04/22/24 19:38 Room Air 04/22/24 17:36 Room Air 04/22/24 16:56 98.1 F 108 H 12 117/77 98 Room Air 04/22/24 14:30 Room Air 04/22/24 12:25 Room Air Intake and Output 04/22/24 04/23/24 04/23/24 23:59 07:59 15:59 Output Total 0 / 0 0 / 0 Balance 0 / 0 0 / 0 Output: Output, Urine Amount 0 / 0 0 / 0 Other: Number of Unmeasured Voids 1 1 1 Laboratory Results - last 24 hr 04/23/24 08:00: WBC 14.8 H, RBC 3.42 L, Hgb 10.2 L, Hct 31.8 L, MCV 93.0, MCH 29.8, MCHC 32.1, RDW 11.7, Plt Count 952 H*, MPV 9.2, Neut % (Auto) 78.2, Lymph % (Auto) 9.3 L, [place] % (Auto) 9.5 H, Eos % (Auto) 1.2, Baso % (Auto) 0.9, Neut # (Auto) 11.6 H, Lymph # (Auto) 1.4, [place] # (Auto) 1.4 H, Eos # (Auto) 0.2, Baso # (Auto) 0.1, Sodium 134 L, Potassium 4.2, Chloride 102, Carbon Dioxide 27, Anion Gap 9.2, BUN 5 L, Creatinine 0.50 L, Estimated Creat Clear 157, Estimated GFR 135, Est GFR ( Amer) 163, Glucose 104 H, Calcium 8.8, Magnesium 2.0, Total Bilirubin 0.6, AST 31, ALT 26, Alkaline Phosphatase 128 H, Total Protein 6.5, Albumin 3.5, Globulin 3.0, Albumin/Globulin Ratio 1.2 I & O for Labs for Last 24 Hours: Intake & Output 04/20/24 04/21/24 04/22/24 04/23/24 23:59 23:59 23:59 23:59 Intake Total 953 / 953 Output Total 0 / 0 0 / 0 0 / 0 0 / 0 Balance 0 / 0 953 / 953 0 / 0 0 / 0 Head: Present atraumatic and normocephalic ENT: Present normal exam Neck: Present normal inspection and full ROM Respiratory: Present CTA bilaterally and normal respiratory effort Cardiac: Present Reg Rate and Rhythm GI: Present soft and normal bowel sounds; Absent distention or tenderness Comments:: low vertical incision clean/dry/intact Rectal (female): Present deferred (female): Present deferred Extremities: Present full ROM; Absent edema or calf tenderness Neuro: Present alert, awake and moves all extremities Assessment and Plan *Assessment and plan (1) Nausea with vomiting: Status: Acute Qualifiers: Vomiting type: unspecified Qualified Code(s): R11.2 - Nausea with vomiting, unspecified Category: Medical Code(s): R11.2 - Nausea with vomiting, unspecified (2) S/P MARVEL (total abdominal hysterectomy): Status: Acute Category: Surgical Code(s): Z90.710 - Acquired absence of both cervix and uterus (3) Abdominal abscess: Status: Acute Category: Medical (4) Focal nodular hyperplasia of liver: Status: Acute Category: Medical Code(s): K76.89 - Other specified diseases of liver Plan Prerna is feeling better. Leukocytosis is stable, 14.8 Vital signs stable, afebrile She lost IV access last night. Attempts were made to insert new IV without success. Transition medication to PO Consulted pharmacy to help with PO antibiotic regimen. Will transition to Flagyl and Levaquin. Plan for her to complete 10 days of abx total. Repeat CBC in the AM Continue acetaminophen and oxycodone for pain management Encouraged walking in the halls Close monitoring Repeat CT scan tomorrow morning. Discussed if abscess has decreased in size will continue with expectant management. If it is unchanged in size, discussed outpatient drainage with IR this week [facility] home tomorrow
[2024-04-23] MEDS: metroNIDAZOLE 500 MG TABLET PO ×2 (11:07→21:21)
[2024-04-23] MEDS: levoFLOXacin 750 MG TABLET PO (11:07)
--- NOTE | 2024-04-23 14:52 | PC.NURSE ---
called to check on pt. Updated on pt's status per MICHAEL Morgan.
[2024-04-23 16:33] VITALS: BP 127/62; PULSE 102; RESP 18; TEMP 36.8; O2SAT 100
--- NOTE | 2024-04-23 16:34 | PC.NURSE ---
Pt has rested well throughout the day. She has had several family present visiting intermittently. She has been able to tolerate a regular diet, denies any new onset of n/v. Started oral antibiotics today. Will have labs and CT repeated in a.m. Continues to use ice compress to rt arm (ac area) for rash / knot r/t infiltration of IV ABX.
--- NOTE | 2024-04-23 18:11 | PC.NURSE ---
Pt ambulating in brar with her mom.
[2024-04-23] MEDS: SENNA 8.6MG TABLET 8.6 MG PO (19:30)
--- NOTE | 2024-04-23 20:15 | PC.NURSE ---
Pt ambulating brar with mom.
[2024-04-23 21:18] VITALS: PULSE 105; O2SAT 98
[2024-04-24 04:02] VITALS: PULSE 104; O2SAT 96
--- NOTE | 2024-04-24 05:22 | PC.NURSE ---
Pt taken down for CT scan at this time.
--- NOTE | 2024-04-24 05:29 | PC.NURSE ---
Pt back to room from CT.
[2024-04-24] MEDS: ONDANSETRON 4MG ODT 4 MG SL (05:35)
--- NOTE | 2024-04-24 05:40 | PC.NURSE ---
Zofran provided per pt request due to nausea/dry heaving episode.
--- NOTE | 2024-04-24 06:00 | CT_ITS ---
PROCEDURE INFORMATION: Exam: CT Pelvis Without Contrast Exam date and time: 04/24/2024 5:26 AM Age: 44 years old Clinical indication: Abnormal findings; Abnormal imaging test; Additional info: Comparison TECHNIQUE: Imaging protocol: Computed tomography of the pelvis without contrast. Radiation optimization: All CT scans at this facility use at least one of these dose optimization techniques: automated exposure control; mA and/or kV adjustment per patient size (includes targeted exams where dose is matched to clinical indication); or iterative reconstruction. COMPARISON: MR PELVIS WO/W CON 04/20/2024 11:48 AM FINDINGS: Appendix: No evidence of appendicitis. Intraperitoneal space: Unremarkable. No free air. No significant fluid collection. Lymph nodes: Unremarkable. No enlarged lymph nodes. Reproductive: Prior hysterectomy. Urinary bladder: There is some wall thickening of the adjacent bladder. Bones/joints: Complex collection containing fluid and air is seen in the central pelvis, currently this measures 9.8 x 6 point 1 cm not significantly changed from the recent MRI study of 04/20/2024. Tubular fluid is again noted to the left side of the rectum in the presacral region, this measures 3.6 x 1.3 cm not changed from prior MRI. Soft tissues: Unremarkable. IMPRESSION: Complex fluid collection in the pelvis as noted on recent MRI not significantly changed in size or appearance. Additional 2nd collection is seen to the left of the rectum also unchanged from prior.
[2024-04-24 07:29] LABS: Basophils # 0.1 K/mm3 (0-0.2); Basophils % 0.5 % (0.1-2.0); Eosinophils # 0.1 K/mm3 (0.0-0.4); Eosinophils % 0.7 % (0.1-12.0); Hematocrit 33.6 % (37.0-47.0); Lymphocytes # 1.2 K/mm3 (0.7-4.5); Lymphocytes % 6.8 % (10-50); Mean Corpuscular HGB Conc 33.6 g/dL (31.8-35.4); Mean Corpuscular Hemoglobin 30.7 pg (27.0-31.2); Mean Corpuscular Volume 91.5 fl (81-99); Mean Platelet Volume 7.3 fl (7.4-10.4); Monocytes # 1.2 K/mm3 (0.1-1.0); Monocytes % 6.8 % (1.7-9.3); Neutrophils % 85.2 % (37.0-80.0); Platelet Count 976 K/mm3 (142-424); Red Blood Count 3.68 M/mm3 (4.20-5.40); White Blood Count 17.6 K/mm3 (4.8-10.8)
[2024-04-24 07:32] LABS: MANUAL DIFFERENTIAL MANUAL DIFFERENTIAL (MANUAL DIFF)
[2024-04-24 08:00] VITALS: BP 105/63; PULSE 111; RESP 17; TEMP 36.7; O2SAT 95
[2024-04-24] MEDS: metroNIDAZOLE 500 MG TABLET PO ×3 (08:05→20:11)
[2024-04-24] MEDS: SENNA 8.6MG TABLET 8.6 MG PO (08:05)
[2024-04-24 08:15] VITALS: O2SAT 100
--- NOTE | 2024-04-24 08:39 | PC.NURSE ---
Dr. Montoya rounded this am. Going to keep patient today and make NPO at midnight. Dr. Montoya wants to consult Dr. Fraser and also place a picc line. Patient is agreeable to this POC. wants to order repeat labs in AM.
[2024-04-24 08:48] LABS: Eosinophils % 1 % (0-3); Lymphocytes % 12 % (10-50); Monocytes % 4 % (2-9); Neutrophils % 83 % (42-76); RBC Morphology Normal; Total Cells Counted 100
[2024-04-24 08:49] LABS: Platelet Estimate Marked Increase
[2024-04-24 08:52] LABS: Hemoglobin 11.3 g/dL (12.2-16.2)
--- NOTE | 2024-04-24 10:20 | P.PN_ITS ---
Subjective *Date: 04/24/24 *Time: 12:26 Interval history: POD#20, HD#5 for a pelvic abscess/infected hematoma s/p abdominal hysterectomy with bilateral salpingectomy. Prerna is feeling better. Nausea and dry heaving is better. She admits she felt really nauseous this morning but believes it is secondary to fast ride down to CT. She is taking zofran occasionally. She admits increased vaginal drainage that has an odor. She is voiding without difficulty and passing flatus. Denies fever/chills, chest pain and shortness of breath. She is ambulating well ad vaishali. Medical Exam Vital signs and Labs for Last 24 Hours: Vital Signs Temp Pulse Resp BP Pulse Ox O2 Del Method 04/24/24 09:20 Room Air 04/24/24 08:15 100 Room Air 04/24/24 08:00 98.1 F 111 H 17 105/63 L 95 Room Air 04/24/24 07:12 Room Air 04/24/24 05:20 Room Air 04/24/24 04:02 104 H 96 Room Air 04/24/24 03:57 Room Air 04/24/24 01:55 Room Air 04/23/24 23:28 Room Air 04/23/24 21:18 105 H 98 Room Air 04/23/24 21:18 Room Air 04/23/24 19:23 Room Air 04/23/24 17:38 Room Air 04/23/24 16:33 98.2 F 102 H 18 127/62 100 Room Air 04/23/24 15:30 Room Air 04/23/24 13:33 Room Air 04/23/24 11:30 Room Air Intake and Output 04/23/24 04/24/24 04/24/24 23:59 07:59 15:59 Output Total 0 / 0 0 / 0 Balance 0 / 0 0 / 0 Output: Output, Urine Amount 0 / 0 0 / 0 Other: Number of Unmeasured Voids 1 1 Laboratory Results - last 24 hr 04/24/24 06:38: WBC 17.6 H, RBC 3.68 L, Hgb 11.3 L D, Hct 33.6 L, MCV 91.5, MCH 30.7, MCHC 33.6, RDW 13.0, Plt Count 976 H*, MPV 7.3 L, Neut % (Auto) 85.2 H, Lymph % (Auto) 6.8 L, [place] % (Auto) 6.8, Eos % (Auto) 0.7, Baso % (Auto) 0.5, Neut # (Auto) 15.0 H, Lymph # (Auto) 1.2, [place] # (Auto) 1.2 H, Eos # (Auto) 0.1, Baso # (Auto) 0.1, Total Counted 100, Neutrophils % (Manual) 83 H, Lymphocytes % (Manual) 12, Monocytes % (Manual) 4, Eosinophils % (Manual) 1, Platelet Estimate Marked increase, RBC Morphology Normal I & O for Labs for Last 24 Hours: Intake & Output 04/21/24 04/22/24 04/23/24 04/24/24 23:59 23:59 23:59 23:59 Intake Total 953 / 953 Output Total 0 / 0 0 / 0 0 / 0 0 / 0 Balance 953 / 953 0 / 0 0 / 0 0 / 0 Microbiology Reports for the Last 24 Hours: Microbiology 04/19/24 21:29 Blood Blood Culture - Preliminary NO GROWTH AFTER 4 DAYS 04/19/24 21:29 Blood Blood Culture - Preliminary NO GROWTH AFTER 4 DAYS Head: Present atraumatic and normocephalic Neck: Present full ROM Respiratory: Present CTA bilaterally and normal respiratory effort Cardiac: Present Reg Rate and Rhythm GI: Present soft and normal bowel sounds; Absent distention, tenderness or guarding Rectal (female): Present deferred (female): Present deferred Extremities: Present full ROM; Absent edema or calf tenderness Neuro: Present alert, awake and moves all extremities Assessment and Plan *Assessment and plan (1) Nausea with vomiting: Status: Acute Qualifiers: Vomiting type: unspecified Qualified Code(s): R11.2 - Nausea with vomiting, unspecified Category: Medical Code(s): R11.2 - Nausea with vomiting, unspecified (2) Abdominal abscess: Status: Acute Category: Medical (3) S/P MARVEL (total abdominal hysterectomy): Status: Acute Category: Surgical Code(s): Z90.710 - Acquired absence of both cervix and uterus (4) Focal nodular hyperplasia of liver: Status: Acute Category: Medical Code(s): K76.89 - Other specified diseases of liver (5) Leukocytosis: Status: Acute Qualifiers: Leukocytosis type: unspecified Qualified Code(s): D72.829 - Elevated white blood cell count, unspecified Category: Medical Code(s): D72.829 - Elevated white blood cell count, unspecified (6) Thrombocytosis: Status: Acute Category: Medical Code(s): D75.839 - Thrombocytosis, unspecified Plan Prerna is feeling okay and would really like to go home CT scan this morning unchanged from prior imaging Leukocytosis has increased slightly, 17.6 (14.8 yesterday). It has been stable overall since admission. On admission WBC was 17.9 Vital signs - mild tachycardia, BP stable, afebrile She lost IV access Wednesday. Attempts were made to insert new IV without success. Continue Flagyl and Levaquin PO. Plan for her to complete 10 days of abx total. Repeat CBC, CMP in the AM Continue acetaminophen and oxycodone for pain management Encouraged ambulation Close monitoring NPO at midnight for possible surgery tomorrow (possible diagnostic laparocopy, laparotomy or drainage via vaginal cuff)
[2024-04-24] MEDS: levoFLOXacin 750 MG TABLET PO (11:18)
[2024-04-24 16:00] VITALS: BP 112/68; PULSE 110; RESP 17; TEMP 36.9; O2SAT 100
--- NOTE | 2024-04-24 16:09 | PC.NURSE ---
Reassessment done at this time- no changes from this am. Denies any pain at this time, and voices no concerns of nausea. Pt did have a bowel movement today. Bowel sounds hyperactive, and lungs cta. Midline incision healing with dermabond. small bruise to left of incision. unchanged. Redness to right a/c where IV was this past week. No change in redness, no warmth noted. pulses 2+ and no edema noted. Patient has ambulated a few times today without difficulty. Patient is aware of POC and she is agreeable. Orders from Dr. Arauz to be NPO at 4 AM. Patient's mother at bedside. Denies any needs
[2024-04-24 19:00] VITALS: BP 114/76; PULSE 114; RESP 19; TEMP 36.9; O2SAT 98
[2024-04-24 20:17] VITALS: O2SAT 98
[2024-04-25] VITALS (13 sets, daily range): BP systolic 97–119; BP diastolic 62–80; PULSE 82–113; RESP 16–18; TEMP 36.3–43; O2SAT 97–100; BMI 22.8
--- NOTE | 2024-04-25 | US_ITS ---
PROCEDURE: US PELVIC CLINICAL INDICATION: ABCESS DRAINAGE COMPARISON: CT CT ABDOMEN PELVIS W CON from 04/19/2024 MR MR PELVIS WO/W CON from 04/20/2024 MR MR ABDOMEN WO/W CON from 04/20/[address] PELVIS WO CON from 04/24/2024 FINDINGS: Transabdominal ultrasound was performed intraoperatively. There appears to be a hematoma at the top of the vaginal vault within the abdominal cavity. It measures 4.6 cm x 3.4 cm There is a live view of a probe being inserted into the cavity of the hematoma. IMPRESSION: 1. Successful insertion of a probe into an abdominal abscess transvaginally. 2. It appears that a small hematoma remains. 3. No large collection of fluid is seen. Dictated by: Chester Bueno MD 04/25/2024 16:12 Chester Bueno MD in OV 04/25/2024 16:12
--- NOTE | 2024-04-25 04:37 | PC.NURSE ---
Patient easily awoken from sleep for reassessment. Patient bowel sounds are active throughout. Lung sounds remain clear bilaterally throughout. Patient is alert and oriented.
[2024-04-25 07:22] LABS: Basophils # 0.2 K/mm3 (0-0.2); Basophils % 1.2 % (0.1-2.0); Eosinophils # 0.3 K/mm3 (0.0-0.4); Eosinophils % 1.7 % (0.1-12.0); Hemoglobin 11.6 g/dL (12.2-16.2); Lymphocytes # 1.5 K/mm3 (0.7-4.5); Lymphocytes % 10.3 % (10-50); Mean Corpuscular HGB Conc 33.1 g/dL (31.8-35.4); Mean Corpuscular Hemoglobin 30.1 pg (27.0-31.2); Mean Corpuscular Volume 90.8 fl (81-99); Mean Platelet Volume 7.2 fl (7.4-10.4); Monocytes % 6.7 % (1.7-9.3); Neutrophils # 11.4 K/mm3 (1.8-7.8); Red Blood Count 3.86 M/mm3 (4.20-5.40); White Blood Count 14.2 K/mm3 (4.8-10.8)
[2024-04-25 07:34] LABS: Platelet Count 1014 K/mm3 (142-424)
--- NOTE | 2024-04-25 08:13 | PC.NURSE ---
here to see pt and discuss POC. Pt's mother also at bs present.
[2024-04-25] MEDS: metroNIDAZOLE 500 MG TABLET PO ×3 (09:42→22:02)
--- NOTE | 2024-04-25 10:10 | PC.NURSE ---
Ambulating in hallway with her mom.
--- NOTE | 2024-04-25 11:42 | PC.NURSE ---
Pt taken to Pre-Op via bed and O.R. staff x2. She is accompanied by her mother.
--- NOTE | 2024-04-25 11:45 | EXP.PN ---
Subjective *Date: 04/25/24 *Time: 17:28 Interval history: POD#21, HD#6 for a pelvic abscess/infected hematoma s/p abdominal hysterectomy with bilateral salpingectomy. Prerna is feeling better, albeit discouraged and ready to go home. Nausea and dry heaving is about the same. She admits she felt really nauseous this morning, she ate 1/2 banana this morning around 3AM. She is taking zofran occasionally. She admits increased vaginal drainage that has an odor. She is voiding without difficulty and passing flatus. Denies fever/chills, chest pain and shortness of breath. She is ambulating well ad vaishali. Exam Data for Last 24 hours Vital signs and Labs for Last 24 Hours: Temp Pulse Resp BP Pulse Ox O2 Del Method 98.0 F 113 H 17 117/74 99 Room Air 04/25/24 08:00 04/25/24 08:00 04/25/24 08:00 04/25/24 08:00 04/25/24 08:00 04/25/24 08:30 Laboratory Results - last 24 hr 04/25/24 07:06: WBC 14.2 H, RBC 3.86 L, Hgb 11.6 L, Hct 35.0 L, MCV 90.8, MCH 30.1, MCHC 33.1, RDW 13.0, Plt Count 1014 H*, MPV 7.2 L, Neut % (Auto) 80.0, Lymph % (Auto) 10.3, [place] % (Auto) 6.7, Eos % (Auto) 1.7, Baso % (Auto) 1.2, Neut # (Auto) 11.4 H, Lymph # (Auto) 1.5, [place] # (Auto) 1.0, Eos # (Auto) 0.3, Baso # (Auto) 0.2 I & O for Last 24 hours: Intake & Output 04/22/24 04/23/24 04/24/24 04/25/24 23:59 23:59 23:59 23:59 Intake Total 240 / 240 Output Total 0 / 0 0 / 0 0 / 0 Balance 0 / 0 0 / 0 240 / 240 Weight 145 lb 8 oz Microbiology Reports for the Last 24 Hours: Microbiology 04/19/24 21:29 Blood Blood Culture - Final NO GROWTH AFTER 5 DAYS 04/19/24 21:29 Blood Blood Culture - Final NO GROWTH AFTER 5 DAYS Narrative: Head: Present atraumatic and normocephalic Neck: Present full ROM Respiratory: Present CTA bilaterally and normal respiratory effort Cardiac: Present Reg Rate and Rhythm GI: Present soft and normal bowel sounds; Absent distention, tenderness or guarding Rectal (female): Present deferred (female): Present deferred Extremities: Present full ROM; Absent edema or calf tenderness Neuro: Present alert, awake and moves all extremities Assessment and Plan *Assessment and plan (1) Nausea with vomiting: Status: Acute Qualifiers: Vomiting type: unspecified Qualified Code(s): R11.2 - Nausea with vomiting, unspecified Category: Medical Code(s): R11.2 - Nausea with vomiting, unspecified (2) Abdominal abscess: Status: Acute Category: Medical (3) S/P MARVEL (total abdominal hysterectomy): Status: Acute Category: Surgical Code(s): Z90.710 - Acquired absence of both cervix and uterus (4) Focal nodular hyperplasia of liver: Status: Acute Category: Medical Code(s): K76.89 - Other specified diseases of liver (5) Leukocytosis: Status: Acute Qualifiers: Leukocytosis type: unspecified Qualified Code(s): D72.829 - Elevated white blood cell count, unspecified Category: Medical Code(s): D72.829 - Elevated white blood cell count, unspecified (6) Thrombocytosis: Status: Acute Category: Medical Code(s): D75.839 - Thrombocytosis, unspecified Plan Prerna is feeling okay and would really like to go home CT scan unchanged from prior imaging Leukocytosis continues to remain stable and is back in the 14's today Vital signs -tachycardia improved, BP stable, afebrile IV access obtained via anesthesia Continue Flagyl and Levaquin PO. Plan for her to complete 14 days of abx total. Repeat CBC, CMP in the AM Continue acetaminophen and oxycodone for pain management Encouraged ambulation Close monitoring Proceed with vaginal incision and drainage today possible diagnostic laparoscopy. Will have ultrasound guidance available
--- NOTE | 2024-04-25 12:47 | P.PNANES_ITS ---
[facility] Disclaimer: The information contained in this section may have been updated after the patient was seen, as this information can be updated by other users. Medical History (Updated 04/24/24 @ 12:28 by Shirley Montoya DO) Thrombocytosis Leukocytosis Nausea with vomiting History of COVID-19 Abnormal uterine bleeding (AUB) Surgical History (Updated 04/19/24 @ 14:27 by BRENNEN Leung) History of total abdominal hysterectomy Family History Other Cancer Social History Smoking Status: Never smoker alcohol intake: never substance use type: denies use current occupational status: employed Travel in the last 8 weeks: None household members: family housing: house [facility] Anesthesia Checklist Patient Identification Patient Identification: Arm Band Structural Data Admitted From: Home Planned Operative Procedure/s: I&D Vaginal Abscess Consent for Planned Operative Procedure(s) Verified: Yes Verified Documents: Surgical Consent and History and Physical NPO Status Verified Time NPO: 00:00 Additional verifications Anesthesia Reactions: No Hx Blood Transfusions: No Blood Transfusion Reaction: No Airway Assessment Mallampati Score:: Class II C-Spine Mobility Assessed: Yes TMJ Mobility Assessed: Yes Dentition: Good Dentition Neurological Assessment Level of Consciousness: Awake, Alert and Appropriate Anesthesia Plan Anesthesia Risk discussed: Yes Anesthesia Plan: Verified ASA Class: I Anesthesia Type: General
--- NOTE | 2024-04-25 12:50 | P.PNANES_ITS ---
[facility] Anesthesia Record Part I Anesthesia Record I Intake, IV Amount: 500 Hydration: Adequate Estimated blood loss (mL): 5 Urine output (mL): 50 Blood Products used (#): none Blood Pressure: 113/74 SaO2: 100 Pulse Rate: 92 Airway Patency: Patent Respiratory Rate: 16 Temperature: 97.3 F Patient is:: Drowsy and Stable Stable to PACU at:: 12:40
--- NOTE | 2024-04-25 13:15 | PC.NURSE ---
Pt return back to Room 279 from PACU accompanied by sx staff x2. Bedside report received.
--- NOTE | 2024-04-25 13:22 | PC.NURSE ---
Pt alert and oriented. Denies any pain. Lungs clear. (+)BS x4 quads. Saline lock x 2 (rt and left hand). VS WNL. Pt's mother and at bs. No vaginal discharge noted.
[2024-04-25] MEDS: levoFLOXacin 750 MG TABLET PO (14:43)
--- NOTE | 2024-04-25 15:39 | PC.NURSE ---
Pt up to bathroom to void at this time. Pt's is at bs attentive to pt. Pt's bed linens changed and room straightened.
--- NOTE | 2024-04-25 17:07 | PC.NURSE ---
at bs to see pt.
--- NOTE | 2024-04-25 17:28 | PC.NURSE ---
IV saline lock discontinued from rt hand, catheter intact. 2x2 gauze and coban applied to site.
--- NOTE | 2024-04-25 17:32 | EXP.OP.NOTE ---
Date of procedure: 04/25/24 Pre-op Diagnosis:: 1. Status post abdominal hysterectomy and bilateral salpingectomy on 04/04/2024 secondary to fibroids 2. 11.3 cm pelvic abscess. On CT scan from 1216 it measured 9.8 cm. Post-op Diagnosis:: 1. Status post abdominal hysterectomy and bilateral salpingectomy on 04/04/2024 secondary to fibroids 2. 11.3 cm pelvic abscess. On CT scan from 04/24 it measured 9.8 cm. Procedure performed:: Vaginal incision and drainage with ultrasound guidance Surgeon:: Josie Arauz DO Supply Chain Associate(s):: Chester Bueno MD CONTROLLER MECHANIC:: Jorge Alamo Anesthesia: MAC Estimated blood loss (mL): 5 Operative findings:: Normal-appearing vaginal cuff without any cellulitis, inflammation, drainage, or signs of cuff infection Operative note:: Patient was taken back to the operating room and prepped and draped in the normal sterile fashion with CHG. Prior to starting the procedure I again prepped with Betadine and let this sit for several minutes. The cuff was inspected prior to prepping with Betadine. A blunt tipped packing forcep was used to slightly separate the vaginal cuff and allow for drainage. About 40-50 mL of purulent old blood was drained. This was done under ultrasound guidance for the entire time. I was able to see the packing forcep into her the abscess cavity on ultrasound throughout the entirety of the procedure. Anaerobic and aerobic cultures were obtained. When there was no return of any fluid or purulent material the procedure was concluded. All instruments were removed from the vagina the patient was awakened and taken back to her inpatient bed. Condition: stable Disposition: floor Specimens:: Wound cultures Complications:: None
--- NOTE | 2024-04-25 19:27 | PC.NURSE ---
Pt ambulating in hallway with her Mom at this time.
--- NOTE | 2024-04-25 21:35 | PC.NURSE ---
Pt ambulating with Mom in hallway at this time.
--- NOTE | 2024-04-25 22:44 | PC.NURSE ---
Pt is ambulating hallway with her Mom by her side. Tolerating well.
[2024-04-26 04:14] VITALS: BP 100/67; PULSE 92; RESP 19; TEMP 36.4; O2SAT 99
[2024-04-26 04:16] VITALS: BMI 22.4
--- NOTE | 2024-04-26 07:21 | P.PNANES_ITS ---
[facility] Anesthesia Record Part II Anesthesia Record Part II Discharge Time: 13:10 Destination: Obstetric PACU nurse assessment reviewed?: Yes Patient Condition:: Good Anesthesia Complications:: None Swallowing reflex intact?: Yes Airway Patency: Patent Cyanosis?: No Blood Pressure: 119/80 SaO2: 100 Respiratory Rate: 16 Pulse Rate: 88 Temperature: 97.8 F Mental Status: Alert & Oriented Pain level:: 0 Nausea and/or vomitting:: None Intake, IV Amount: 0 Hydration: Adequate
[2024-04-26 07:22] VITALS: BP 119/80; PULSE 88; RESP 16; TEMP 36.6; O2SAT 100
[2024-04-26 08:39] LABS: Hematocrit 33.6 % (37.0-47.0); Hemoglobin 10.8 g/dL (12.2-16.2); Mean Corpuscular Volume 93.1 fl (81-99); Red Blood Count 3.61 M/mm3 (4.20-5.40); White Blood Count 11.1 K/mm3 (4.8-10.8)
[2024-04-26 08:40] LABS: Mean Corpuscular HGB Conc 32.1 g/dL (31.8-35.4); Red Cell Distribution Width 11.8 % (11.5-17.5)
[2024-04-26 08:42] LABS: Basophils # 0.1 K/mm3 (0-0.2); Basophils % 1.3 % (0.1-2.0); Eosinophils # 0.3 K/mm3 (0.0-0.4); Eosinophils % 2.6 % (0.1-12.0); Lymphocytes # 2.1 K/mm3 (0.7-4.5); Lymphocytes % 19.3 % (10-50); Mean Platelet Volume 8.9 fl (7.4-10.4); Monocytes # 1.1 K/mm3 (0.1-1.0); Monocytes % 9.5 % (1.7-9.3); Neutrophils # 7.4 K/mm3 (1.8-7.8); Neutrophils % 66.2 % (37.0-80.0); Platelet Count 1018 K/mm3 (142-424)
[2024-04-26 08:45] LABS: Albumin Level 3.4 g/dl (3.5-5.0); Chloride 104 mmol/L (98-107); Potassium 3.9 mmoL/L (3.5-5.1); Sodium 134 mmol/L (136-145)
[2024-04-26 08:47] LABS: Alanine Aminotransferase 25 U/L (12-78); Aspartate Amino Transferase 28 U/L (14-36); Blood Urea Nitrogen 6 mg/dl (7-17); Creatinine Clearance Estimated 149 mL/min (50-200); Estimated Glomerular Filt Rate 135 ml/min (>60); GFR (African American) 163 ML/MIN (>60)
[2024-04-26 08:48] LABS: Albumin/Globulin Ratio 1.1 (1.1-1.8); Alkaline Phosphatase 100 U/L (38-126); Anion Gap 5.9 mEq/L (5-15); Bilirubin,Total 0.3 mg/dl (0.2-1.3); Carbon Dioxide 28 mmol/L (22.0-30.0); Glucose 96 mg/dl (74-100); Magnesium 2.1 mg/dl (1.6-2.3); Total Protein,Serum 6.4 g/dl (6.3-8.2)
[2024-04-26 08:56] VITALS: BP 109/70; PULSE 91; RESP 17; TEMP 36.8; O2SAT 99
--- NOTE | 2024-04-26 08:57 | P.DS_ITS ---
General Admission date:: 04/19/24 Discharge date: 04/26/24 HPI HPI HPI: Mrs. Schofield is a 44-year-old female who had total abdominal hysterectomy 2 weeks ago and returned with nausea. She had no fever or abdominal pain but did have some tenderness. She also had some vaginal bleeding. Her scan did show an 11.3 cm pelvic abscess and she is being treated with antibiotics. White blood cell count on admission was 16.5 thousand. She had some borderline anemia and her hemoglobin hematocrit today were 10.1 and 31.0. On her CAT scan on 04/19 there was a 8.6 cm isodense enhancing mass arising from the left lobe of the liver with central scar. There was some satellite lesions identified. The patient did have an MRI today that showed left hepatic lobe mass with central scar most consistent with focal nodular hyperplasia. There were other potential etiologies in the differential. The patient did not have any evidence of omental or peritoneal carcinomatosis and her recent pelvic surgery with examination of the abdominal organs appeared to be completely benign. The patient has had no abnormal weight loss or abdominal pain. She has no history of pulmonary issues and has had regular breast screening mammograms. She has not had a prior colonoscopy. Her only family history of colon cancer is a paternal great uncle?pancreatic cancer and grandfather with colon cancer at older ages. She reports no bowel issues, reflux. She has had no unintentional weight loss, melena or hematochezia. The nausea is new. Hospital Course Hospital Course Hospital Course: Prerna is a pleasant 44yo admitted for monitoring of a pelvic abscess/infected hematoma s/p abdominal hysterectomy with bilateral salpingect oz. Today, on discharge she is POD#22, HD#7. She was noted to have a UTI that was sensitive to all antibiotics we gave her. She recieved IV Zosyn from 04/19/24 to 04/22/24. She lost IV access and was tansitioned to PO Levaquin and Flagyl on 04/23/2024. With admission she had a CT scan in the ED which showed lesions on her liver. She had a follow-up MRI and was evaluated by GI. She was ultimately diagnosed with focal nodular hyperplasia. She will follow-up with GI outpatient. It was discussed with her that this is a benign condition. On hospital day #6 she underwent an in the OR vaginal incision and drainage with evacuation of approximately 40 mL of infected hematoma. She will be discharged home with p.o. Levaquin and Flagyl. Her white count has remained stable and is decreased on discharge today. Routine discharge instructions reviewed with the patient, her , and her mother in detail multiple times. She has remained afebrile throughout this entire process. Her follow-up appointments will be as follows 04/28/2024 at 9:45 in the morning with labs at the hospital before that appointment. She will then follow-up again on 1230 at 9 AM. She will then follow up again on May 16, 2024 at 9:45 in the morning. She will have a repeat CT scan on May 15 and we are working on getting that prior Auth completed at this time. Upon discharge she is tolerating p.o. better and denies significant nausea or vomiting. She is voiding without difficulty and passing flatus. She is having bowel movements. Denies fever/chills, chest pain and shortness of breath. She is ambulating well ad vaishali. Exam Data for Last 24 hours Vital signs and Labs for Last 24 Hours: Temp Pulse Resp BP Pulse Ox O2 Del Method 97.5 F L 92 H 16 100/67 L 99 Room Air 04/26/24 04:14 04/26/24 04:14 04/26/24 07:22 04/26/24 04:14 04/26/24 04:14 04/26/24 05:22 Laboratory Results - last 24 hr 04/26/24 08:15: WBC 11.1 H, RBC 3.61 L, Hgb 10.8 L, Hct 33.6 L, MCV 93.1, MCH 30.0, MCHC 32.1, RDW 11.8, Plt Count 1018 H*, MPV 8.9, Neut % (Auto) 66.2, Lymph % (Auto) 19.3, [place] % (Auto) 9.5 H, Eos % (Auto) 2.6, Baso % (Auto) 1.3, Neut # (Auto) 7.4, Lymph # (Auto) 2.1, [place] # (Auto) 1.1 H, Eos # (Auto) 0.3, Baso # (Auto) 0.1, Sodium 134 L, Potassium 3.9, Chloride 104, Carbon Dioxide 28, Anion Gap 5.9, BUN 6 L, Creatinine 0.50 L, Estimated Creat Clear 149, Estimated GFR 135, Est GFR ( Amer) 163, Glucose 96, Calcium 9.0, Magnesium 2.1, Total Bilirubin 0.3, AST 28, ALT 25, Alkaline Phosphatase 100, Total Protein 6.4, Albumin 3.4 L, Globulin 3.0, Albumin/Globulin Ratio 1.1 I & O for Last 24 hours: Intake & Output 04/23/24 04/24/24 04/25/24 04/26/24 23:59 23:59 23:59 23:59 Intake Total 240 / 240 500 / 500 0 / 0 Output Total 0 / 0 0 / 0 0 / 0 Balance 0 / 0 240 / 240 500 / 500 0 / 0 Weight 145 lb 8 oz 143 lb Microbiology Reports for the Last 24 Hours: Microbiology 04/25/24 12:20 Vaginal - Vaginal Gram Stain - Final Narrative: Head: Present atraumatic and normocephalic Neck: Present full ROM Respiratory: Present CTA bilaterally and normal respiratory effort Cardiac: Present Reg Rate and Rhythm GI: Present soft and normal bowel sounds; Absent distention, tenderness or guarding Rectal (female): Present deferred (female): Present deferred Extremities: Present full ROM; Absent edema or calf tenderness Neuro: Present alert, awake and moves all extremities Results Data Completed and Pending Labs on day of discharge: Labs from last 24 hours 04/26/24 08:15 WBC 11.1 H RBC 3.61 L Hgb 10.8 L Hct 33.6 L MCV 93.1 MCH 30.0 MCHC 32.1 RDW 11.8 Plt Count 1018 H* MPV 8.9 Neut % (Auto) 66.2 Lymph % (Auto) 19.3 [place] % (Auto) 9.5 H Eos % (Auto) 2.6 Baso % (Auto) 1.3 Neut # (Auto) 7.4 Lymph # (Auto) 2.1 [place] # (Auto) 1.1 H Eos # (Auto) 0.3 Baso # (Auto) 0.1 Sodium 134 L Potassium 3.9 Chloride 104 Carbon Dioxide 28 Anion Gap 5.9 BUN 6 L Creatinine 0.50 L Estimated Creat Clear 149 Estimated GFR 135 Est GFR ( Amer) 163 Glucose 96 Calcium 9.0 Magnesium 2.1 Total Bilirubin 0.3 AST 28 ALT 25 Alkaline Phosphatase 100 Total Protein 6.4 Albumin 3.4 L Globulin 3.0 Albumin/Globulin Ratio 1.1 DS: Diagnosis Discharge Diagnosis (1) Nausea with vomiting: Status: Acute Code(s): R11.2 - Nausea with vomiting, unspecified Qualifiers: Vomiting type: unspecified Qualified Code(s): R11.2 - Nausea with vomiting, unspecified (2) Abdominal abscess: Status: Acute (3) S/P MARVEL (total abdominal hysterectomy): Status: Acute Code(s): Z90.710 - Acquired absence of both cervix and uterus (4) Focal nodular hyperplasia of liver: Status: Acute Code(s): K76.89 - Other specified diseases of liver (5) Leukocytosis: Status: Acute Code(s): D72.829 - Elevated white blood cell count, unspecified Qualifiers: Leukocytosis type: unspecified Qualified Code(s): D72.829 - Elevated white blood cell count, unspecified (6) Thrombocytosis: Status: Acute Code(s): D75.839 - Thrombocytosis, unspecified Meds Home Medications and Allergies Home Medications ?Medication ?Instructions ?Recorded ?Confirmed ?Type sennosides 8.6 mg tablet (Senna 8.6 mg PO BIDP PRN Constipation 04/05/24 Rx Lax) #60 tabs ibuprofen 800 mg tablet 800 mg PO Q8HP PRN Pain (Scale 04/20/24 04/20/24 History Score 4-6) simethicone 125 mg tablet 125 mg PO DAILYP PRN FLATULENCE 04/20/24 04/20/24 History ondansetron 4 mg disintegrating 4 mg PO Q8HP PRN Nausea And 04/26/24 Rx tablet Vomiting #30 tabs prochlorperazine maleate 10 mg 5 mg (1/2 x 10 mg) PO Q6HP PRN 04/26/24 Rx tablet Nausea And Vomiting #30 tabs New Prescriptions to Start Prescriptions: prochlorperazine maleate Josie rAauz ondansetron Josie Arauz Allergies Allergy/AdvReac Type Severity Reaction Status Date / Time No Known Allergies Allergy Verified 04/19/24 14:17 Discharge Plan Disposition Patient Disposition: Home, Self-Care Condition: Fair Discharge Order Discharge Orders: Discharge Order (Routine); Ordered 04/26/24 Ordered By: Josie Arauz Follow up Plan Follow up with: Josie Arauz DO [Staff Physician] - 04/28/24 9:45 am (05/09/24 @ 9:00 am 05/15/24 - CT scan 05/16/24 @ 9:45 am) Prescriptions/Medication Reconciliation: New prochlorperazine maleate 10 mg Tablet 5 mg PO Q6HP PRN (Reason: Nausea And Vomiting) Qty: 30 1RF Continued sennosides [Senna Lax] 8.6 mg Tablet 8.6 mg PO BIDP PRN (Reason: Constipation) Qty: 60 2RF ibuprofen 800 mg tablet 800 mg PO Q8HP PRN (Reason: Pain (Scale Score 4-6)) simethicone 125 mg tablet 125 mg PO DAILYP PRN (Reason: FLATULENCE ) Changed ondansetron 4 mg tablet,disintegrating 4 mg PO Q8HP PRN (Reason: Nausea And Vomiting) Qty: 30 2RF Discontinued norgestimate-ethinyl estradiol [Sprintec (28)] 0.25-35 mg-mcg tablet 1 tab PO DAILY Patient Comments: TAKE 1 TABLET BY MOUTH ONCE DAILY FOR CONTRACEPTION promethazine 12.5 mg tablet 12.5 mg PO Q4HP PRN (Reason: nausea and vomiting) Rx Instructions: TAKE 12.5 MG BY MOUTH EVERY 4-6 HOURS NEEDED FOR NAUSEA AND VOMITING Problem Reconciliation Problems Reviewed?: Yes Patient Discharge Instructions ACTIVITY: Continue current activity DIET: regular diet Patient Instructions: Nausea and Vomiting-Adult, How to Use Antibiotics Wisely Print Language: Indonesian Providers Primary Care Provider: Lester Plaza Admchad Provider: Shirley Montoya Attending Provider: Shirley Montoya
--- NOTE | 2024-04-26 09:19 | P.PN_ITS ---
Subjective *Date: 04/26/24 *Time: 09:19 Medical Exam Vital signs and Labs for Last 24 Hours: Vital Signs Temp Pulse Pulse Resp BP BP Pulse Ox 04/26/24 08:56 98.2 F 91 H 17 109/70 L 99 04/26/24 07:22 16 04/26/24 05:22 04/26/24 04:14 97.5 F L 92 H 19 100/67 L 99 04/26/24 04:14 92 H 99 04/26/24 03:07 04/26/24 01:08 04/25/24 23:35 04/25/24 21:36 04/25/24 20:20 94 H 98 04/25/24 20:00 98.0 F 94 H 17 107/71 L 98 04/25/24 19:55 04/25/24 17:52 04/25/24 15:15 04/25/24 15:00 90 18 101/66 L 98 04/25/24 14:30 98.1 F 89 18 107/69 L 97 04/25/24 14:00 82 105/68 L 98 04/25/24 13:30 98.1 F 85 18 101/78 L 100 04/25/24 13:10 97.8 F 88 16 119/80 100 04/25/24 13:00 97.8 F 88 16 114/75 100 04/25/24 12:51 97.3 F L 92 H 16 113/74 04/25/24 12:50 97.8 F 87 16 113/78 100 04/25/24 12:40 97.8 F 90 16 110/75 99 04/25/24 10:35 O2 Del Method 04/26/24 08:56 Room Air 04/26/24 07:22 04/26/24 05:22 Room Air 04/26/24 04:14 04/26/24 04:14 Room Air 04/26/24 03:07 Room Air 04/26/24 01:08 Room Air 04/25/24 23:35 Room Air 04/25/24 21:36 Room Air 04/25/24 20:20 Room Air 04/25/24 20:00 04/25/24 19:55 Room Air 04/25/24 17:52 Room Air 04/25/24 15:15 Room Air 04/25/24 15:00 Room Air 04/25/24 14:30 Room Air 04/25/24 14:00 Room Air 04/25/24 13:30 Room Air 04/25/24 13:10 Room Air 04/25/24 13:00 Room Air 04/25/24 12:51 04/25/24 12:50 Room Air 04/25/24 12:40 Room Air 04/25/24 10:35 Room Air Intake and Output 04/25/24 04/26/24 04/26/24 23:59 07:59 15:59 Intake Total 0 / 0 Output Total 0 / 0 Balance 0 / 500 0 / 0 Intake: Intake, Total IV Amount 0 / 0 Output: Output, Urine Amount 0 / 0 Other: Number of Unmeasured Voids 1 Weight 64.864 kg Patient Weight 04/26/24 23:59 Weight 64.864 kg Laboratory Results - last 24 hr 04/26/24 08:15: WBC 11.1 H, RBC 3.61 L, Hgb 10.8 L, Hct 33.6 L, MCV 93.1, MCH 30.0, MCHC 32.1, RDW 11.8, Plt Count 1018 H*, MPV 8.9, Neut % (Auto) 66.2, Lymph % (Auto) 19.3, [place] % (Auto) 9.5 H, Eos % (Auto) 2.6, Baso % (Auto) 1.3, Neut # (Auto) 7.4, Lymph # (Auto) 2.1, [place] # (Auto) 1.1 H, Eos # (Auto) 0.3, Baso # (Auto) 0.1, Sodium 134 L, Potassium 3.9, Chloride 104, Carbon Dioxide 28, Anion Gap 5.9, BUN 6 L, Creatinine 0.50 L, Estimated Creat Clear 149, Estimated GFR 135, Est GFR ( Amer) 163, Glucose 96, Calcium 9.0, Magnesium 2.1, Total Bilirubin 0.3, AST 28, ALT 25, Alkaline Phosphatase 100, Total Protein 6.4, Albumin 3.4 L, Globulin 3.0, Albumin/Globulin Ratio 1.1 I & O for Labs for Last 24 Hours: Intake & Output 04/23/24 04/24/24 04/25/24 04/26/24 23:59 23:59 23:59 23:59 Intake Total 240 / 240 500 / 500 0 / 0 Output Total 0 / 0 0 / 0 0 / 0 Balance 0 / 0 240 / 240 500 / 500 0 / 0 Weight 65.998 kg 64.864 kg Microbiology Reports for the Last 24 Hours: Microbiology 04/25/24 12:20 Vaginal - Vaginal Gram Stain - Final The patient's infection will respond to the chosen ABx?: Yes (ABSCESS CULTURE PENDING) Is the patient receiving the right drug, dose, and route?: Yes Could a more targeted ABx be ordered?: No
[2024-04-26] MEDS: metroNIDAZOLE 500 MG TABLET PO (10:14)
[2024-04-26] MEDS: levoFLOXacin 750 MG TABLET PO (10:15)
== END 2024-04-26 13:00 | disposition home or self-care (01) | DRG 747 ==
LOC: ER 16:58 → OB 21:46
PROVIDERS: Internal Medicine Gastroenterology; Obstetrics & Gynecology; Admitting Provider Obstetrics & Gynecology; Emergency Provider Emergency Medicine; PCP Internal Medicine Adolescent Medicine; Visit Provider Obstetrics & Gynecology
PROC: 0U9G0ZZ Drainage of Vagina, Open Approach (ICD-10-PCS; principal; 2024-04-25 12:00)
DX: N73.9 Female pelvic inflammatory disease, unspecified (principal); Z90.710 Acquired absence of both cervix and uterus; K76.89 Other specified diseases of liver
CPT/HCPCS: 57010; 36415; 72192; 72197; 74177; 74183; 76856; 80053; 82105; 82378; 83690; 83735; 85007; 85025; 86301; 86803; 87040; 87070; 87075; 87077; 87186; 87205; 87389; 99285; A9576; J0780; J1100; J1885; J2250; J2405; J2543; J2550; J3010; J3475; J7120; Q0162; Q9967

== ENCOUNTER 2024-04-28 08:27 | Outpatient (CLI) | payer BC, SELFPAY ==
[2024-04-28 09:24] LABS: Albumin Level 3.4 g/dl (3.5-5.0); Chloride 107 mmol/L (98-107); Potassium 4.5 mmoL/L (3.5-5.1); Sodium 134 mmol/L (136-145)
[2024-04-28 09:27] LABS: Alanine Aminotransferase 21 U/L (12-78); Albumin/Globulin Ratio 1.4 (1.1-1.8); Alkaline Phosphatase 109 U/L (38-126); Anion Gap 8.5 mEq/L (5-15); Aspartate Amino Transferase 23 U/L (14-36); Bilirubin,Total 0.3 mg/dl (0.2-1.3); Blood Urea Nitrogen 7 mg/dl (7-17); Calcium 9.5 mg/dl (8.4-10.2); Carbon Dioxide 23 mmol/L (22.0-30.0); Estimated Glomerular Filt Rate 135 ml/min (>60); GFR (African American) 163 ML/MIN (>60); Globulin 2.5 g/dL (1.3-3.2); Glucose 95 mg/dl (74-100); Total Protein,Serum 5.9 g/dl (6.3-8.2)
[2024-04-28 09:57] LABS: Basophils # 0.1 K/mm3 (0-0.2); Basophils % 1.4 % (0.1-2.0); Eosinophils # 0.3 K/mm3 (0.0-0.4); Eosinophils % 3.2 % (0.1-12.0); Hematocrit 34.1 % (37.0-47.0); Hemoglobin 11.1 g/dL (12.2-16.2); Lymphocytes # 1.8 K/mm3 (0.7-4.5); Lymphocytes % 20.5 % (10-50); Mean Corpuscular HGB Conc 32.6 g/dL (31.8-35.4); Mean Corpuscular Hemoglobin 30.2 pg (27.0-31.2); Mean Corpuscular Volume 92.9 fl (81-99); Mean Platelet Volume 9.2 fl (7.4-10.4); Monocytes # 0.8 K/mm3 (0.1-1.0); Monocytes % 8.8 % (1.7-9.3); Neutrophils # 5.9 K/mm3 (1.8-7.8); Neutrophils % 65.4 % (37.0-80.0); Platelet Count 1109 K/mm3 (142-424); Red Blood Count 3.67 M/mm3 (4.20-5.40); Red Cell Distribution Width 11.9 % (11.5-17.5)
== END 2024-04-28 23:59 | disposition home or self-care (01) ==
LOC: LAB 08:28
PROVIDERS: PCP Internal Medicine Adolescent Medicine; Visit Provider Obstetrics & Gynecology
DX: D72.829 Elevated white blood cell count, unspecified (principal)
CPT/HCPCS: 36415; 80053; 85025

== ENCOUNTER 2024-05-09 07:58 | Outpatient (CLI) | payer BC, SELFPAY ==
[2024-05-09 08:36] LABS: Basophils # 0.1 K/mm3 (0-0.2); Basophils % 2.3 % (0.1-2.0); Eosinophils # 0.3 K/mm3 (0.0-0.4); Eosinophils % 4.7 % (0.1-12.0); Hematocrit 36.7 % (37.0-47.0); Lymphocytes # 1.9 K/mm3 (0.7-4.5); Lymphocytes % 35.5 % (10-50); Mean Corpuscular HGB Conc 32.7 g/dL (31.8-35.4); Mean Corpuscular Hemoglobin 30.7 pg (27.0-31.2); Mean Corpuscular Volume 93.9 fl (81-99); Mean Platelet Volume 10.2 fl (7.4-10.4); Monocytes # 0.5 K/mm3 (0.1-1.0); Monocytes % 10.2 % (1.7-9.3); Neutrophils # 2.5 K/mm3 (1.8-7.8); Neutrophils % 47.1 % (37.0-80.0); Platelet Count 381 K/mm3 (142-424); Red Blood Count 3.91 M/mm3 (4.20-5.40); White Blood Count 5.3 K/mm3 (4.8-10.8)
[2024-05-09 09:15] LABS: Albumin Level 3.6 g/dl (3.5-5.0); Chloride 105 mmol/L (98-107); Potassium 4.6 mmoL/L (3.5-5.1); Sodium 134 mmol/L (136-145)
[2024-05-09 09:17] LABS: Alanine Aminotransferase 23 U/L (12-78); Alkaline Phosphatase 89 U/L (38-126); Anion Gap 9.6 mEq/L (5-15); Aspartate Amino Transferase 41 U/L (14-36); Bilirubin,Total 0.5 mg/dl (0.2-1.3); Blood Urea Nitrogen 7 mg/dl (7-17); Carbon Dioxide 24 mmol/L (22.0-30.0); Estimated Glomerular Filt Rate 174 ml/min (>60); GFR (African American) 211 ML/MIN (>60)
[2024-05-09 09:18] LABS: Albumin/Globulin Ratio 1.6 (1.1-1.8); Calcium 9.5 mg/dl (8.4-10.2); Globulin 2.3 g/dL (1.3-3.2); Glucose 88 mg/dl (74-100); Magnesium 1.9 mg/dl (1.6-2.3); Total Protein,Serum 5.9 g/dl (6.3-8.2)
== END 2024-05-09 23:59 | disposition home or self-care (01) ==
LOC: LAB 07:59
PROVIDERS: PCP Internal Medicine Adolescent Medicine; Visit Provider Obstetrics & Gynecology
DX: D75.839 Thrombocytosis, unspecified (principal)
CPT/HCPCS: 36415; 80053; 83735; 85025

== ENCOUNTER 2024-05-19 07:45 | Outpatient (CLI) | payer BC, SELFPAY ==
--- NOTE | 2024-05-19 07:46 | CT_ITS ---
FINAL REPORT CLINICAL HISTORY: abdominal/pelvic pain pelvic infection after partial hysterectomy. followup post antibiotic. compare to last CT studies. COMPARISON: CT pelvis dated 04/24/2024, MRI abdomen and MRI pelvis dated 04/20/2024 FINDINGS: The lung bases are clear. There are multiple low-attenuation lesions in the liver. The largest in the inferior right lobe measures up to 3.0 cm in greatest dimension. These lesions demonstrate significant enhancement. A focus in the inferior right lobe of the liver demonstrates a mean attenuation value of 16 Hounsfield units on the precontrast images and 65 Hounsfield units on the postcontrast images. Similarly, there is a focus in the anterior right lobe of the liver which demonstrates 41 Hounsfield units on the precontrast images and 98 Hounsfield units on the postcontrast images. These do not appear to be simple cysts and do not have the typical appearance of a hemangioma. The spleen is unremarkable. The adrenals are normal. The pancreas is unremarkable. The kidneys enhance appropriately. The GI tract is unremarkable. Postoperative changes are seen in the mid pelvis. Previously noted large complex fluid collection in the pelvis, presumably representing an abscess, has resolved. There is a rounded fluid attenuation structure in the right ovary measuring 2 cm. The left ovary is unremarkable. Precontrast images demonstrate multiple nonobstructing stones in the left kidney measuring up to 4 mm IMPRESSION: Previously seen abscess in the pelvis has resolved. 2 cm cystic focus in the right ovary is favored to be a physiologic cyst. An ovarian abscess is considered less likely. Multiple hepatic lesions which do not appear to be simple cysts or hemangiomas. Differentials include atypical adenomas or metastatic disease. These are stable compared to the MR dated 04/20/2024. Continued follow-up is recommended. Reviewed, Interpreted and Dictated by Colten Estrada MD Transcribed by Salina Angeles Authenticated and [facility]
[2024-05-19] MEDS: SODIUM CHLORIDE 0.9% 10ML SYR (RAD ONLY) 10 ML IV (08:28)
[2024-05-19] MEDS: IOPAMIDOL-370 (76%);100ML BOTTLE 75 ML IV (08:28)
== END 2024-05-19 23:59 | disposition home or self-care (01) ==
PROVIDERS: PCP Internal Medicine Adolescent Medicine; Visit Provider Obstetrics & Gynecology
DX: R10.9 Unspecified abdominal pain (principal)
CPT/HCPCS: 74178; Q9967

== ENCOUNTER 2025-01-19 08:29 | Emergency (ER) | payer BC, SELFPAY ==
[2025-01-19] VITALS (8 sets, daily range): BP systolic 107–128; BP diastolic 71–88; PULSE 52–90; RESP 16–17; TEMP 36.7–36.8; O2SAT 96–100; BMI 21.9
[2025-01-19 08:45] LABS: Microscopic, Urine URINE MICROSCOPIC (MICROSCOPIC)
[2025-01-19 08:47] LABS: Bilirubin,Urine Negative (Negative); Color,Urine YELLOW (Yellow); Glucose,Urine (UA) Negative (Negative); Ketones,Urine Negative (Negative); Leukocyte Esterase,Urine Negative (Negative); PH,Urine 6.5 (5.0-8.5); Protein,Urine Negative (Negative); Specific Gravity, Urine 1.020 (1.005-1.030); Urobilinogen,Urine 0.2 EU/dl (0.2)
[2025-01-19 08:53] LABS: Hematocrit 41.4 % (37.0-47.0); Hemoglobin 14.0 g/dL (12.2-16.2); Immature Granulocytes % 0.2 %; Mean Corpuscular HGB Conc 33.8 g/dL (31.8-35.4); Mean Corpuscular Hemoglobin 31.7 pg (27.0-31.2); Mean Corpuscular Volume 93.9 fl (81-99); Nucleated Red Blood Cells % 0 %; Platelet Count 308 K/mm3 (142-424); Red Blood Count 4.41 M/mm3 (4.20-5.40); Red Cell Distribution Width-SD 39.6 fL; White Blood Count 8.4 K/mm3 (4.8-10.8)
--- NOTE | 2025-01-19 08:53 | CT_ITS ---
FINAL REPORT TECHNIQUE: Thin section axial images were obtained through the abdomen after intravenous contrast. Reconstruction images were obtained from the axial data. Exam was performed using dose reduction techniques. CLINICAL HISTORY: LLQ, N/V COMPARISON: 05/19/2024 and 04/19/2024 FINDINGS: The lung bases are clear. There is approximately a 1 cm hypodense lesion in the right lobe of the liver, unchanged. Several additional smaller hypodense lesions are stable including a 17 mm lesion in the inferior right lobe on series 3, image 46. There is a larger lesion in the inferior right lobe measuring 27 mm, was 29 mm. The largest lesion in the lateral segment of the left lobe of the liver measures 7.9 cm, was 7.8 cm. 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 The gallbladder is present. The spleen, adrenal glands, and pancreas are unremarkable. There are nonobstructing left renal stones.. Umbilical hernia containing fat is stable. There is no abdominal lymphadenopathy or ascites. The uterus is absent. There is a left adnexal partially cystic mass measuring 6.4 x 3.9 cm which was not seen on the prior, could represent hemorrhagic cyst. There is no pelvic lymphadenopathy or ascites. No acute osseous abnormalities identified. IMPRESSION: New, 6.4 cm left cystic mass, likely ovarian in origin, could represent hemorrhagic cyst. Consider ultrasound for further evaluation. Resolution of the previously identified right ovarian cyst. Multiple stable hepatic lesions including a large lesion in the left hepatic lobe, likely FNH. Reviewed, Interpreted and Dictated by Vidhya Garcia MD Transcribed by Ailyn Fitch Authenticated and [facility]
--- NOTE | 2025-01-19 08:54 | ED_ITS ---
Discharge Plan Disposition Patient Disposition: Home, Self-Care Prescriptions Prescriptions: New ondansetron 4 mg tablet,disintegrating 4 mg PO Q6H PRN (Reason: nausea and vomiting) Qty: 16 0RF Referrals Follow up/Referrals: Lester Plaza MD [Primary Care Provider, Internal Medicine] - See instructions Activity Restrictions/Add. Instructions Additional Instructions/Restrictions: You were found to have a cyst on the left ovary, likely causing your pain. I encourage you to take Tylenol and ibuprofen every 6 hours as needed to help with symptoms. I do encourage you to follow-up with your [facility] physician today to schedule a close follow-up appointment. If you develop any new or worsening symptoms, such as worsening abdominal pain, vaginal bleeding, fever, or if you become concerned for your health for any reason, return to the emergency department for evaluation. You are also being prescribed Zofran to help with nausea. Take this as prescribed. Clinical Impressions Clinical Impression: Complex cyst of left ovary Instructions Patient Instructions: DI for Acute Abdominal Pain Print Language Print Language: Yakut Discharge ED Provider: Jorge Hunt General Adult HPI General Chief complaint: Abdominal Pain Stated complaint: Pain lower L side, vomiting bright yellow bile Time Seen by Provider: 01/19/25 08:47 Mode of Arrival: Ambulatory Description of Symptoms (Recalled from ER Triage Doc. by RN): patient states around 8-9 lastmight she began having LLQ pain that is intermittent and aching with nausea nd vomting. History of Present Illness HPI narrative: Prerna Schofield is a 45-year-old female with a history of abnormal uterine bleeding status post total abdominal hysterectomy in March 2024 who presents to the emergency department for complaints of left lower quadrant abdominal pain, nausea, vomiting. Patient states that pain began last night and is a nagging type pain in her left lower quadrant. She states that she has had an episode of vomiting bright green bile. She states that there was no food in it. She has had 2 bowel movements without relief of her symptoms. She states that her bowel movements were normal without blood or diarrhea. She denies any fever, chest pain, shortness of breath. She has not taken her medication for her symptoms. She tried to go to work but they told her that she needed to come to the emergency department. She denies any dysuria or hematuria. She states that she has not had pain like this in the past. She did state that her total abdominal hysterectomy was complicated by infection. Related Data Previous Rx's ?Medication ?Instructions ?Recorded ondansetron 4 mg disintegrating 4 mg PO Q6H PRN nausea and 01/19/25 tablet vomiting #16 tabs Allergies Allergy/AdvReac Type Severity Reaction Status Date / Time No Known Allergies Allergy Verified 08/08/24 15:31 [facility] Disclaimer: The information contained in this section may have been updated after the patient was seen, as this information can be updated by other users. Medical History Thrombocytosis Leukocytosis Nausea with vomiting History of COVID-19 Abnormal uterine bleeding (AUB) Surgical History History of total abdominal hysterectomy Family History Other Cancer Social History Smoking Status: Never smoker alcohol intake: never substance use type: denies use current occupational status: employed Travel in the last 8 weeks?: None household members: family housing: house Have you lived/traveled outside [place] in past 30 days?: No Contact w/someone who lives/traveled outside US past 30 days?: No Exposure to someone with infectious disease in past 14 days?: No Do you have a fever (greater than 100.4 F or 38 C)?: No Have you tested positive for COVID-19?: No Exposed to someone with COVID-19 in past 14 days?: No Do you have a sore throat?: No Do you have a cough?: No Do you have any weakness?: No Do you have any diarrhea?: No Are you experiencing any unusual bleeding?: No Do you have any muscle aches/pain?: No Do you have any abdominal pain?: No Are you experiencing loss of taste or smell?: No Other Medical History Have you received the Flu Vaccine for this season: No Have you received the Pneumonia Vaccine: No ROS Obtained: Yes Systems reviewed as appropriate & no additional complaints except as documented Physical Exam General General appearance: alert and in no apparent distress Comment: appears uncomfortable Head Head exam: atraumatic Eye Eye exam: Present normal appearance ENT ENT exam: Present normal external ear exam Neck Neck exam: Present full ROM Chest Chest inspection: Present symmetric chest wall rise Respiratory Respiratory exam: Present normal lung sounds bilaterally; Absent respiratory distress, wheezes or stridor Cardiovascular Cardiovascular exam: Present regular rate and normal rhythm Abdominal Exam Abdominal exam: Present soft and tenderness (generalized, but more focally in the LLQ with mild guarding in LLQ); Absent distention, guarding or rigidity Extremities Exam Extremities exam: Present normal inspection Back Exam Back exam: Present normal inspection Neurological Exam Neurological exam: Present alert and oriented X3 Psychiatric Psychiatric exam: Present normal affect Skin Skin exam: Present warm and dry Medical Decision Making Medical Records Screening: Per USPSTF and CDC recommendations, given the prevalence of disease in our region, it is our hospital?s policy to screen for HIV and viral Hepatitis for all patients aged 18 and over and those with ongoing risk factors. Garrick Inquiry Pt receiving controlled substance: No Vital Signs: 01/19/25 08:35 01/19/25 08:36 01/19/25 09:00 Temperature 98.1 F Temperature Source Oral Pulse Rate 52 L 84 Pulse Rate [Right Radial] 86 Respiratory Rate 16 Blood Pressure 128/88 125/71 Blood Pressure [Right Arm] 128/88 Blood Pressure Mean [Right Arm] 101 Blood Pressure Source [Right Arm] Automatic Cuff Blood Pressure Position [Right Arm] Sitting 02 Sat by Pulse Oximetry 96 97 100 Oxygen Delivery Method Room Air 01/19/25 09:30 01/19/25 10:00 01/19/25 10:48 Temperature Temperature Source Pulse Rate 78 79 75 Pulse Rate [Right Radial] Respiratory Rate Blood Pressure 110/73 112/74 121/82 Blood Pressure [Right Arm] Blood Pressure Mean [Right Arm] Blood Pressure Source [Right Arm] Blood Pressure Position [Right Arm] 02 Sat by Pulse Oximetry 100 100 98 Oxygen Delivery Method 01/19/25 11:00 Temperature Temperature Source Pulse Rate 80 Pulse Rate [Right Radial] Respiratory Rate Blood Pressure 114/73 Blood Pressure [Right Arm] Blood Pressure Mean [Right Arm] Blood Pressure Source [Right Arm] Blood Pressure Position [Right Arm] 02 Sat by Pulse Oximetry 99 Oxygen Delivery Method Lab Data Lab Results 01/19/25 08:35: Urine Color Yellow, Urine Appearance Clear, Urine pH 6.5, Ur Specific [place] 1.020, Urine Protein Negative, Urine Glucose (UA) Negative, Urine Ketones Negative, Urine Blood Negative, Urine Nitrate Negative, Urine Bilirubin Negative, Urine Urobilinogen 0.2, Ur Leukocyte Esterase Negative, Urine RBC None, Urine WBC Occasional, Ur Squamous Epith Cells 10-20, Urine Bacteria 2+ 01/19/25 08:43: WBC 8.4, RBC 4.41, Hgb 14.0, Hct 41.4, MCV 93.9, MCH 31.7 H, MCHC 33.8, RDW 11.5, Plt Count 308, MPV 10.4, Neut % (Auto) 82.6 H, Lymph % (Auto) 11.0, [place] % (Auto) 4.5, Eos % (Auto) 0.8, Baso % (Auto) 0.9, Neut # (Auto) 7.0, Lymph # (Auto) 0.9, [place] # (Auto) 0.4, Eos # (Auto) 0.1, Baso # (Auto) 0.1, Sodium 138, Potassium 4.0, Chloride 105, Carbon Dioxide 25, Anion Gap 12.0, BUN 13, Creatinine 0.50 L, Estimated Creat Clear 144, Estimated GFR 134, Est GFR ( Amer) 162, Glucose 107 H, Lactate 0.9, Calcium 9.5, Total Bilirubin 0.9, AST 28, ALT 21, Alkaline Phosphatase 106, C-Reactive Protein 1.8, Total Protein 7.8 D, Albumin 4.8, Globulin 3.0, Albumin/Globulin Ratio 1.6, Lipase 88, Serum HCG, Qual Negative 01/19/25 08:43 01/19/25 08:43 Orders (Tests/Meds): ED MEDICATIONS Discontinued Medications Generic Name Dose Route Start Last Admin Trade Name Leonardo PRN Reason Stop Dose Admin Lactated Ringer's 1,000 mls @ 999 mls/hr 01/19/25 08:53 01/19/25 10:46 Lactated Ringer's 1000 Ml Bag IV 01/19/25 09:53 Infused .Q1H1M ONE Infusion Iopamidol 75 ml 01/19/25 09:16 01/19/25 09:17 Iopamidol-370 (76%);100ml Bottle IV 01/19/25 09:17 75 ml ONCE ONE Administration Ketorolac Tromethamine 15 mg 01/19/25 09:04 01/19/25 09:05 Ketorolac 15mg/Ml Vial IV 01/19/25 09:05 15 mg ONCE ONE Administration Morphine Sulfate 2 mg 01/19/25 08:53 01/19/25 09:01 Morphine 2mg/Ml Syringe IV 01/19/25 08:54 Not Given ONCE ONE Ondansetron HCl 4 mg 01/19/25 08:53 01/19/25 09:00 Ondansetron 4mg/2ml Vial IV 01/19/25 08:54 4 mg ONCE ONE Administration Sodium Chloride 10 ml 01/19/25 09:16 01/19/25 09:17 Sodium Chloride 0.9% 10ml Syr (Rad Only) IV 01/19/25 09:17 10 ml ONCE ONE Administration ORDERS Category Date Time Status CT abdomen pelvis w con Stat Cat Scan 01/19/25 08:53 Completed US transvaginal Stat Exams 01/19/25 10:12 Completed CMP [Comprehensive Metabolic Panel] Stat Lab 01/19/25 08:43 Completed CRP [C-Reactive Protein] Stat Lab 01/19/25 08:43 Completed Complete Blood Count Auto Diff Stat Lab 01/19/25 08:43 Completed Lactic Acid Stat Lab 01/19/25 08:43 Completed Lipase Stat Lab 01/19/25 08:43 Completed Serum [HCG Qualitative, Serum] Stat Lab 01/19/25 08:43 Completed UA [Urinalysis and Microscopic] Stat Lab 01/19/25 08:35 Completed Urine Culture Stat Micro 01/19/25 08:35 Received Medical Decision Narrative: Prerna Schofield is a 45-year-old female with a history of abnormal uterine bleeding status post total abdominal hysterectomy with bilateral salpingectomy in March 2024 who presents to the emergency department for complaints of left lower quadrant abdominal pain, nausea, vomiting. Patient states that pain began last night and is a nagging type pain in her left lower quadrant. She states that she has had an episode of vomiting bright green bile. She states that there was no food in it. She has had 2 bowel movements without relief of her symptoms. She states that her bowel movements were normal without blood or diarrhea. She denies any fever, chest pain, shortness of breath. She has not taken her medication for her symptoms. She tried to go to work but they told her that she needed to come to the emergency department. She denies any dysuria or hematuria. She states that she has not had pain like this in the past. She did state that her total abdominal hysterectomy was complicated by infection. On arrival, patient is normotensive, heart rate within normal limits, afebrile, breathing or plan room air with oxygen saturation 97% SpO2. Physical exam, stated above, reveals an uncomfortable but nontoxic-appearing female in no respiratory distress. Cardiopulmonary exam is unremarkable. She has tenderness generally throughout her abdomen but more focally in the left lower quadrant with mild amount of guarding in this area. Abdomen is nondistended and not peritonitic. Differential diagnosis includes, but is not limited to: Colitis, diverticulitis, small bowel obstruction, acute pancreatitis, urinary tract infection, acute appendicitis, intra-abdominal infection/abscess given patient's hysterectomy complicated by infection, among others. the most morbid conditions were considered and workup was based on these. Discharge summary from [facility] on 04/26/2024 and was found to have a pelvic abscess/hematoma status post abdominal hysterectomy with bilateral salpingectomy. She had received IV Zosyn from 04/19 to 04/22. And was transition to p.o. Levaquin and Flagyl on 04/23. She was also noted to have lesions on her liver noted on CT scan with follow-up MRI and was diagnosed with follicular nodular hyperplasia and follows with gastroenterology. On hospital day 6 she went to the OR for vaginal incision and drainage with evacuation of 40 mL of infected hematoma. She was discharged on p.o. Levaquin and Flagyl. Repeat CT scan in May 2024 showed that the previously seen abscess in the pelvis had resolved. Workup in the emergency department included: CT abdomen pelvis with IV contrast, CBC with differential, CMP, lactic acid, CRP, lipase, urinalysis. Patient symptoms were treated with 4 mg of IV Zofran, 2 mg of IV morphine, 1 L lactated ringer Laboratory studies without leukocytosis, CMP unremarkable nonactionable. CRP normal at 1.8. Lipase normal at 88. Negative test. Urinalysis without evidence of infection or blood. CT imaging interpreted by me personally. There is a cystic mass that appears to be on the left ovary. Per radiology, measures 6.4 cm. Recommended ultrasound for further evaluation. Patient does have multiple hepatic lesions consistent with her known diagnosis of FNH. Will obtain transvaginal ultrasound at this time to evaluate further. This was discussed with the patient she was in agreement with this plan. Transvaginal ultrasound showed a complex/hemorrhagic cyst on the left ovary measuring up to 4.7 cm. No free fluid. On reassessment, patient is resting comfortably. Pain is better controlled at this time. These results were discussed with her. She does state that she had a history of ovarian cyst approximately 20 years ago before she was taking oral contraceptives. She started taking oral contraceptives and did not have any recurrence of these ovarian cyst. She states that after her hysterectomy, she has not been on oral contraceptives. It is felt that the cysts are recurring likely secondary to this. Have low suspicion for ovarian torsion at this time given patient's comfort level I do not feel that she needs to be admitted for serial abdominal exams. I did encourage her to follow-up with her [facility] physician and she will call to schedule an appointment. I did give strict return precautions for any worsening abdominal pain, fever, vaginal bleeding. She demonstrated understanding and was in agreement this plan. She was then discharged from the emergency department in stable condition. Critical Care Critical Care Time Critical Care Time: No
[2025-01-19] MEDS: LACTATED RINGERS 1000ML 1,000 ML 999 ML IV (09:00)
[2025-01-19] MEDS: ONDANSETRON 4MG/2ML VIAL 4 MG IV (09:00)
[2025-01-19 09:05] LABS: Alanine Aminotransferase 21 U/L (12-78); Albumin Level 4.8 g/dl (3.5-5.0); Albumin/Globulin Ratio 1.6 (1.1-1.8); Alkaline Phosphatase 106 U/L (38-126); Anion Gap 12.0 mEq/L (5-15); Aspartate Amino Transferase 28 U/L (14-36); Bilirubin,Total 0.9 mg/dl (0.2-1.3); Blood Urea Nitrogen 13 mg/dl (7-17); Calcium 9.5 mg/dl (8.4-10.2); Carbon Dioxide 25 mmol/L (22.0-30.0); Chloride 105 mmol/L (98-107); Creatinine Clearance Estimated 144 mL/min (50-200); Creatinine,Serum 0.50 mg/dl (0.52-1.04); Estimated Glomerular Filt Rate 134 ml/min (>60); GFR (African American) 162 ML/MIN (>60); Globulin 3.0 g/dL (1.3-3.2); Glucose 107 mg/dl (74-100); Potassium 4.0 mmoL/L (3.5-5.1); Sodium 138 mmol/L (136-145); Total Protein,Serum 7.8 g/dl (6.3-8.2)
[2025-01-19] MEDS: KETOROLAC 15MG/ML VIAL 15 MG IV (09:05)
[2025-01-19 09:16] LABS: Lipase 88 U/L (23-300)
[2025-01-19 09:17] LABS: Bacteria,Urine 2+ /lpf; WBC,Urine Occasional #/hpf (0-3)
[2025-01-19] MEDS: SODIUM CHLORIDE 0.9% 10ML SYR (RAD ONLY) 10 ML IV (09:17)
[2025-01-19] MEDS: IOPAMIDOL-370 (76%);100ML BOTTLE 75 ML IV (09:17)
[2025-01-19 09:21] LABS: C-Reactive Protein 1.8 mg/L (0-4)
[2025-01-19 09:23] LABS: HCG Qualitative, Serum Negative (Negative)
--- NOTE | 2025-01-19 10:12 | US_ITS ---
PROCEDURE INFORMATION: Exam: US Duplex Artery and Vein of the Abdominal and/or Reproductive Organs. Complete Ovaries Exam date and time: 01/19/2025 10:29 AM Age: 45 years old Clinical indication: Pelvic pain; Prior surgery; Surgery date: 6+ months; Surgery type: S/P hysterectomy; Additional info: Llq pain, left ovarian cystic lesion TECHNIQUE: Imaging protocol: Real-time duplex ultrasound scan of the arterial and venous flow with color Doppler flow and spectral waveform analysis with image documentation. Duplex exam was performed to evaluate for torsion and other vascular conditions. Total images: 567 COMPARISON: US PELVIC 04/25/2024 11:57 AM FINDINGS: Right ovary/adnexa: Blood flow is demonstrated to the right ovary. Left ovary/adnexa: Blood flow is demonstrated to the left ovary. IMPRESSION: No evidence of ovarian torsion. PROCEDURE INFORMATION: Exam: US Pelvis, Transvaginal, Non-Obstetric Exam date and time: 01/19/2025 10:29 AM Age: 45 years old Clinical indication: Pelvic pain; Prior surgery; Surgery date: 6+ months; Surgery type: S/P hysterectomy; Additional info: Llq pain, left ovarian cystic lesion TECHNIQUE: Imaging protocol: Real-time transvaginal pelvic (non-obstetric) ultrasound with image documentation. Transvaginal imaging was used for better evaluation of the endometrium, adnexa, and/or cervix. COMPARISON: US PELVIC 04/25/2024 11:57 AM FINDINGS: Uterus: Status post hysterectomy. Right ovary/adnexa: Right ovary measures 3.3 x 2.9 x 2.0 cm. No right adnexal masses. Left ovary/adnexa: Left ovary measures 6.4 x 5.8 x 4.3 cm. Complex/hemorrhagic cyst is noted on the left ovary measuring up to 4.7 cm. Intraperitoneal space: No free fluid. IMPRESSION: 1. Complex/hemorrhagic cyst is noted on the left ovary measuring up to 4.7 cm. 2. Status post hysterectomy.
== END 2025-01-19 11:36 | disposition home or self-care (01) ==
PROVIDERS: Emergency Provider Student in an Organized Health Care Education/Training Program; PCP Internal Medicine Adolescent Medicine
DX: N83.292 Other ovarian cyst, left side (principal)
CPT/HCPCS: 74177; 76830; 80053; 81001; 83605; 83690; 84703; 85025; 86140; 87086; 96361; 96374; 96375; 99285; J1885; J2405; J7120; Q9967

== ENCOUNTER 2025-01-23 12:33 | Outpatient (CLI) | payer BC, SELFPAY | END 2025-01-23 23:59 | disposition home or self-care (01) | LOC: LAB 12:34 | PROVIDERS: PCP Internal Medicine Adolescent Medicine; Visit Provider Obstetrics & Gynecology | DX: N83.209 Unspecified ovarian cyst, unspecified side (principal) | CPT/HCPCS: 36415 ==